=== PATIENT | male | born 1975 | race Caucasian/White ===

== ENCOUNTER → 2016-09-12 | Outpatient (CLI) | payer OTHER ==
[~2016-09-12] MED LIST: ABL/15 PO; ARIP1TAB16 PO; ATV/1 PO; ATV1 PO; BUPR-83 PO; CETI10TA84 PO; DIVA500T3 PO; DPKSR/500 PO; DPKSR250 PO; ESCI10TA17 PO; FLNIN/ NAE; FLUP10TA PO; FLUT1SPR12 NAE; GDN/80 PO; KLN5 PO; LITH1TAB PO; LITH300T2 PO; LXP10 PO; MULT-506 PO; MULTTAB58 PO; NUTR-218; OMEG10007 PO; PALI3TAB PO; PROP10TA7 PO; SERT50TA PO; THRIVE PATCH TOP; TRAZ100T29 PO; VALA500T60 PO; VLT500 PO; ZIPR1CAP4 PO; [UNRECOGNIZED DRUG - CODE] IM
--- NOTE | 2016-09-12 11:33 | DIAGNOSTIC IMAGING REPORT ---
CHEST 2 VIEWS ROUTINE HISTORY: J20.8 Acute viral bronchitis COMPARISON: None. FINDINGS: The lungs are clear. Cardiac silhouette is normal in size. No pleural effusions. No pneumothorax. IMPRESSION: No acute process. Electronically signed by: Greg Camacho M.D. 09/12/2016 11:32 AM Dictated Date/Time: 09/12/2016 11:28 AM
== END | disposition home or self-care (01) ==
LOC: C.RADBC 11:13
PROVIDERS: ATTEND Family Medicine
DX: J20.8 Acute bronchitis due to other specified organisms (principal)

== ENCOUNTER → 2016-09-28 | Outpatient (CLI) | payer OTHER ==
--- NOTE | 2016-09-29 05:24 | SPLIT NIGHT TECHNICIAN REPORT ---
[facility] Split Night Polysomnogram - Employment Coordinator Report Study date: 09/28/2016 Referring Physician: DR. LOVE Name: MORALES DUQUE Employment Coordinator: BRADLEY Allen. Date of : 1975 Height: 40 years, Height 5' 11" Sex: Male Weight: 263 lbs Age: 40 Neck Circum: 18 inches BMI: Medications: 36.68 ABILIFY 5 MG, BUPROPION HCL 100 MG, DIVALPROEX SODIUM 500 MG, FLUOXETINE HCL 10 MG, FLUTICASONE PROPIONATE 50 MCG/ACT, INVEGA SUSTENNA 156 MG/ML, PROPRANOLOL HCL 10 MG Patient History PATIENT HAD A SLEEP STUDY DONE IN JULY OF 2014. HE WAS POSITIVE FOR HERNAN AND WAS TREATED WITH CPAP. HOWEVER, CPAP WAS TAKEN AWAY FROM HIM SINCE HE DID NOT MEET THE REQUIRED USAGE. HE IS HERE TODAY FOR AN EVALUATION OF HERNAN. ESS = 13 RM 8 Parameters Monitored NPSG: E1-M2, E2-M1, Fp1-M2, Fp2-M1, F3-M2, F4-M2, F4-M1, C3-M2, C4-M2, C4-M1, O1-M2, O2-M2, O2-M1, T3-M2, T4-M1, P3-M2, P4-M1, CHIN1, CHIN2, HR, EKG, Legs, PFLOW, SNOR, FLOW, CFLOW, Tidal Volume, THOR, ABDO, SpO2, PLTH, CPRESS, ETCO2 Wave, ETCO2, pH SLEEP SUMMARY DATA DIAGNOSTIC TREATMENT Lights Out: 10:05:33 PM 1:24:03 AM Lights On: 1:15:33 AM 5:07:33 AM Total Recording Time (TRT): 190.5 min. 224.0 min. Total Sleep Time (TST): 132.5 min. 210.0 min. NREM Time: 132.5 min. 144.0 min. REM Time: 0.0 min. 66.0 min. Sleep Period Time (SPT): 169.5 min. 215.5 min. Sleep Efficiency (SE): 70 % 94 % Sleep Latency: 20.5 min. 4.0 min. Arousal Index: 28.5 6.9 PAP Treatment Levels: 4, 5, 6, 7, 8, 9, 10, 11 * Optimal Pressure(s) SLEEP STAGING DATA DIAGNOSTIC TREATMENT Duration (min) TST % Duration (min) TST % Stage Wake: 57.5 min. -- 14.0 min. -- WASO: 37.0 min. -- 5.5 min. -- NREM: 132.5 min. 100 % 144.0 min. 69 % Stage N1: 15.0 min. 11 % 10.0 min. 5 % Stage N2: 117.5 min. 89 % 62.0 min. 30 % Stage N3: 0.0 min. 0 % 72.0 min. 34 % REM: 0.0 min. 0 % 66.0 min. 31 % POSITIONAL DATA Event Count Index Event Count Index Supine: 184 83.3 46 13.1 Supine NREM: 184 83.3 38 15.8 Supine REM: N/A N/A 8 7 Non-Supine: N/A N/A N/A N/A Non-Supine NREM: N/A N/A N/A N/A Non-Supine REM: N/A N/A N/A N/A AROUSAL SUMMARY DATA: Event Count Index Event Count Index Apnea Arousals: 36 66.1 7 4.6 Hypopnea Arousals: 8 3.6 8 2.3 Snore Arousals: 4 1.8 4 1.1 PLM Arousals: 0 0.0 0 0.0 Non-Specific Arousals: 13 5.9 7 2.0 Total Arousals: 63 28.5 24 6.9 MYOCLONUS (PLM) Event Count Index Event Count Index PLM: 0 0.0 9 2.6 PLM AROUSAL: 0 0.0 0 0.0 PLM W/O AROUSAL 0 0.0 9 2.6 PLM W/RESP EVENT 0 0.0 0 0.0 MYOCLONUS (PLM) Event Count Index Event Count Index LM: 4 28.1 35 10.0 LM AROUSAL: 4 1.8 1 0.3 LM W/O AROUSAL LM W/RESP EVENT LM NON SPECIFIC 30 13.6 38 10.9 HEART RATE DATA DIAGNOSTIC TREATMENT Sleep (bpm): 81 79 REM (bpm): N/A 93 NREM (bpm): 87 92 Tachycardia Count: 0 0 Tachycardia Duration: 0.00 0 Bradycardia Count: 0 0 Bradycardia Duration: 0.00 0 DIAGNOSTIC PORTION TREATMENT PORTION RESPIRATORY DATA Event Count Index Event Count Index AHI: -- 83.3 -- 13.1 RDI: -- 83.3 -- 13 Obstructive Apnea: 131 59.3 14 4.0 Central Apnea: 0 0.0 2 0.6 Mixed Apnea: 15 6.8 0 0.0 Hypopnea: 38 17.2 30 8.6 RERA: 0 0.0 0 0.0 Total Apneas: 146 66.1 16 4.6 RESPIRATORY DATA REM NREM SLEEP REM NREM SLEEP Supine Position: Obstructive Apneas: N/A 131 131 0 14 14 Central Apneas: N/A 0 0 2 0 2 Mixed Apneas: N/A 15 15 0 0 0 Hypopneas: N/A 38 38 6 24 30 RERA N/A 0 0 0 0 0 Total Supine Events: N/A 184 184 8 38 46 Supine AHI: N/A 83.3 83.3 7 15.8 13.1 Supine RDI: N/A 83.3 83.3 7.3 15.8 13.1 REM NREM SLEEP REM NREM SLEEP Non-Supine Position: Obstructive Apneas: N/A N/A N/A N/A N/A N/A Central Apneas: N/A N/A N/A N/A N/A N/A Mixed Apneas: N/A N/A N/A N/A N/A N/A Hypopneas: N/A N/A N/A N/A N/A N/A RERA N/A N/A N/A N/A N/A N/A Total Supine Events: N/A N/A N/A N/A N/A N/A Supine AHI: N/A N/A N/A N/A N/A N/A Supine RDI: N/A N/A N/A N/A N/A N/A OXYGEN DESTAURATION DATA: Event Count Index Event Count Index REM Desaturations: N/A N/A 9 8.2 NREM Desaturations: 207 93.7 41 17.1 SNORE DATA DIAGNOSTIC TREATMENT Snore Time: 15.1 1:28:03 AM Snore TST%: 8 1 Snore Arousal Count: 4 4 Snore Arousal Index: 1.8 1.1 Desaturation Event Summary: Minimum %SpO2 Event Count Mean/Min/Max Duration(sec.) Desaturation Index % Time In Bed > 90 264 22.8 / 4.3 / 60.0 54.4 71.8 86 - 90 16 14.2 / 7.3 / 19.8 15.8 15.0 81 - 85 0 N/A 0.0 6.4 76 - 80 0 N/A 0.0 5.6 71 - 75 0 N/A 0.0 1.3 66 - 70 0 N/A 0.0 0.0 61 - 65 0 N/A 0.0 0.0 56 - 60 0 N/A 0.0 0.0 51 - 55 0 N/A 0.0 0.0 < 50 0 N/A 0.0 0.0 OXYGEN SATURATION DATA DIAGNOSTIC TREATMENT SpO2 Mean Sleep: 87 % 93 % SpO2 Mean REM: N/A % 93 % SpO2 Mean NREM: 87 % 92 % SpO2 Minimum Sleep: 72 % 79 % SpO2 Minimum REM: N/A % 86 % SpO2 Minimum NREM: 72 % 79 % Time Below 90% (TST): 74.3 11.3 Time Below 88% (TST): 57.6 7.1 Total REM NREM Awake <50% 0.0 min. 0.0 min. 0.0 min. 0.0 min. 51 - 60% 0.0 min. 0.0 min. 0.0 min. 0.0 min. 61 - 70% 0.0 min. 0.0 min. 0.0 min. 0.0 min. 71 - 80% 27.8 min. 0.0 min. 27.4 min. 0.4 min. 81 - 90% 86.5 min. 3.5 min. 66.7 min. 16.4 min. 91 - 100% 291.0 min. 61.5 min. 181.9 min. 47.6 min. Average 91 93 90 92 Minimum SpO2 72 86 72 77 Desaturation Event Index 39.3 8.2 53.8 12.7 # Desat. Events below 89% 232 N/A 229 3 Time(%) with Saturation below 89% 18.7 0.7 17.4 0.6 Time(min.) with Saturation below 89% 75.8 2.7 70.5 2.5 Recording Employment Coordinator Comments: Mr. Duque slept in the supine positions. No cardiac arrhythmia noted. Leg movements noted. No bruxism noted. Snoring was noted and scored as a 4 on a scale of 1 through 5. (0=no snoring, 5=snoring loud enough to be heard through a closed door or down the guillen way) At 1:15 am Mr. Duque has met specific Split-Night criteria during the diagnostic portion of this study. CPAP was initiated at +4 CMH2O and up-titrated to an optimal level of +11 CMH2O, which nearly eliminated all respiratory events and snoring. A Resmed Mirage Quattro full face size medium mask was used during titration Mr. Duque awoke to use the restroom 0 times during the night. Mr. Duque stated I slept as well as I do when I am in my own bed. The final report will be interpreted and signed by a sleep physician. The completed physician report will then be placed in the patient medical record. Therapy Event: Therapy (cm H20) 0 4 5 6 7 8 9 10 11 Total Time at Pressure (min.) 190.0 14.0 6.6 4.5 6.5 8.2 9.5 25.6 148.6 TST at Pressure (min.) 132.5 6.5 5.6 4.5 6.5 8.2 9.5 24.6 144.6 # Periods 1 1 1 1 1 1 1 1 1 Sleep Onset (min.) 20.5 4.0 0.0 0.0 0.0 0.0 0.0 0.0 0.0 REM Onset (min.) N/A N/A N/A N/A N/A N/A 3.6 0.0 1.1 Sleep Efficiency % 69 46 84 100 100 100 100 96 97 Wakefulness (%) 30.3 53.6 15.1 0.0 0.0 0.0 0.0 3.9 2.7 Wakefulness (min.) 57.5 7.5 1.0 0.0 0.0 0.0 0.0 1.0 4.0 NREM 1 (%) 7.9 32.1 15.1 11.0 0.0 0.0 0.0 5.4 1.8 NREM 1 (min.) 15.0 4.5 1.0 0.5 0.0 0.0 0.0 1.4 2.6 NREM 2 (%) 61.8 14.3 69.7 89.0 100.0 100.0 38.4 0.0 22.2 NREM 2 (min.) 117.5 2.0 4.6 4.0 6.5 8.2 3.6 0.0 33.0 NREM 3 (%) 0.0 0.0 0.0 0.0 0.0 0.0 0.0 0.0 48.4 NREM 3 (min.) 0.0 0.0 0.0 0.0 0.0 0.0 0.0 0.0 72.0 REM (%) 0.0 0.0 0.0 0.0 0.0 0.0 61.6 90.6 24.9 REM (min.) 0.0 0.0 0.0 0.0 0.0 0.0 5.8 23.2 37.0 # Arousals 63 4 3 4 3 5 1 0 4 Arousal Index 28.5 36.9 32.1 53.0 27.7 36.4 6.3 0.0 1.7 # Snore 374 2 3 8 16 21 1 1 3 Snore Index 169.4 18.5 32.1 106.0 147.8 153.0 6.3 2.4 1.2 AHI 83.3 73.9 96.4 79.5 73.9 43.7 19.0 7.3 1.2 AHI Supine 83.3 73.9 96.4 79.5 73.9 43.7 19.0 7.3 1.2 AHI Non-Supine N/A N/A N/A N/A N/A N/A N/A N/A N/A NREM AHI 83.3 73.9 96.4 79.5 73.9 43.7 0.0 0.0 0.6 REM AHI N/A N/A N/A N/A N/A N/A 30.8 7.8 3.2 RDI 83.3 73.9 96.4 79.5 73.9 43.7 19.0 7.3 1.2 # Obstructive 131 1 4 2 5 2 0 0 0 # Central Ap 0 0 0 0 0 0 1 0 1 # Mixed 15 0 0 0 0 0 0 0 0 # Hypopneas 38 7 5 4 3 4 2 3 2 RERAS 0 0 0 0 0 0 0 0 0 Total Respiratory Events 184 8 9 6 8 6 3 3 3 Time Below SpO2 89.00% (min.) 63.5 0.1 0.6 1.4 2.4 2.5 0.0 2.7 0.0 Mean NREM SpO2 (%) 87 93 93 91 90 91 94 93 93 Mean REM SpO2 (%) N/A N/A N/A N/A N/A N/A 95 93 93 Mean Sleep SpO2 (%) 87 93 93 91 90 91 95 93 93 Min NREM SpO2 (%) 72 88 84 80 79 80 93 92 89 Min REM SpO2 (%) N/A N/A N/A N/A N/A N/A 91 86 90 Position Supine (min.) 132.5 6.5 5.6 4.5 6.5 8.2 9.5 24.6 144.6 Position Non-supine (min.) 0.0 0.0 0.0 0.0 0.0 0.0 0.0 0.0 0.0 LM Index Sleep 28.1 27.7 10.7 13.2 27.7 51.0 63.3 19.5 4.6 LM Index NREM 28.1 27.7 10.7 13.2 27.7 51.0 33.0 0.0 1.7 LM Index REM N/A N/A N/A N/A N/A N/A 82.2 20.7 13.0 Mean Heart Rate (bpm) 81 79 79 78 78 78 81 82 78 Min Heart Rate (bpm) 68 73 73 69 70 67 70 59 65
--- NOTE | 2016-09-30 20:15 | POLYSOMNOGRAPH REPORT ---
SLEEP STUDY REFERRING DOCTOR: Dr. Constantine Zamudio. CLINICAL DATA: The patient is a 40-year-old male. His body mass index is elevated at 36.68. He had a prior sleep study done in 2013 showing severe sleep apnea with an apnea hypopnea index of 107. He was treated with nasal CPAP at 9 cm. He did not wear the CPAP much. The patient has symptoms including snoring, gasping, and excessive daytime somnolence. He completed the [place] sleepiness scale and had a score of 13 out of a possible 24. The patient is having an in-lab study which is a split study. SLEEP ARCHITECTURE: During the diagnostic portion of the study, the sleep period time was 169.5 minutes and the total sleep time was 132.5 minutes. The sleep efficiency was 70%. The sleep latency was 20.5 minutes. Sleep consisted of stage N1 11%, stage N2 89%, stage N3 0%, and stage REM 0%. During the treatment portion of the study, the patient was treated with nasal CPAP. The sleep period time was 215.5 minutes. The total sleep time was 210.0 minutes. Sleep efficiency was 94%. The sleep latency was 4 minutes. Sleep consisted of stage N1 5%, stage N2 30%, stage N3 34%, and stage REM 31%. AROUSAL DATA: During the diagnostic portion of the study, the patient had 63 arousals including 36 apnea arousals, 8 hypopnea arousals, 4 snoring arousals, and 13 nonspecific arousals. The arousal index was 28.5. During the therapeutic portion of the study, the patient had 24 arousals including 7 apnea arousals, 8 hypopnea arousals, 4 snoring arousals, and 7 nonspecific arousals. The arousal index was 6.9. PERIODIC LIMB MOVEMENTS DATA: during the diagnostic portion of the study, the patient had 0 PLMs. During the therapeutic portion of the study, he had 9 periodic limb movements for an index of 2.6. The PLM arousal index was 0. ELECTROCARDIOGRAM: The cardiac rates ranged from 79-93 beats per minute. The rhythm was normal sinus. No arrhythmias were seen. RESPIRATORY DATA: During the diagnostic portion of the study, the patient had a total of 131 obstructive apneas, 15 mixed apneas, and 38 hypopneas. Hypopneas were scored by the 4% desaturation rule. The apnea hypopnea index was severely elevated at 83.3, representing severe obstructive sleep apnea. During the therapeutic portion of the study, the patient was treated with nasal CPAP which was titrated from 4 cm up to a final pressure of 11 cm. During the therapeutic portion, he had 14 obstructive apneas, 2 central apneas, and 30 hypopneas. The apnea hypopnea index was 13.1. At the final pressure of 11 cm, the patient had a total of 144.6 minutes of sleep. The apnea hypopnea index was only 1.2 events per hour. OXIMETRY DATA: The mean oxygen saturation during the diagnostic portion of the study was 87%. The minimum oxygen saturation was 72%. He had 57.6 minutes with saturations less than 88%. During the therapeutic portion of the study, the mean saturation was 93%. The minimum saturation was 79%. There was only 7.1 minutes with saturation less than 88%. At the final pressure, saturations were above 90%. BAND TOP MAKER'S COMMENTS AND TREATMENT SUMMARY: Mr. Zelaya slept in the supine position. No cardiac arrhythmias noted. No bruxism noted. Snoring was noted and scored as a 4 on a scale of 1 through 5. At 1:15 a.m., Mr. Zelaya has met specific split night criteria during the diagnostic portion of the study. CPAP was initiated at 4 cm and up titrated to an optimal level of 11 cm which nearly eliminated all respiratory events and snoring. A ResMed Mirage Quattro full face mask size medium was utilized. IMPRESSION: 1. Obstructive sleep apnea - severe - resolved with nasal CPAP at 11 cm. COMMENTS: The patient has severe sleep apnea. Because of this, a split study was done. There was significant improvement in his sleep during the CPAP titration. The apnea was eliminated. His sleep became much more consolidated. There was a marked increase in deeper sleep including stage N3 and stage REM. There was REM rebound. Oxygenation normalized. RECOMMENDATIONS: 1. It is advised that the patient be treated with nasal CPAP at 11 cm. 2. It is advised that he be ordered a ResMed Mirage Quattro full facemask size medium. 3. A weight-reduction program is advised in light of the patient's elevation of body mass index of 36.68. 4. If possible, the patient should avoid sleeping in the supine position. 5. The patient should be reevaluated between day #31 and day #90 of receiving his CPAP. MTDD
== END | disposition home or self-care (01) ==
LOC: C.NEUR 21:00
PROVIDERS: ATTEND Internal Medicine Pulmonary Disease
DX: G47.33 Obstructive sleep apnea (adult) (pediatric) (principal)

== ENCOUNTER 2016-10-11 21:32 | Emergency (ER) | payer OTHER ==
[~2016-10-11] VITALS: Ht 180.3 cm; Wt 119.3 kg
[~2016-10-11 21:32] MED LIST changes: -ABL/15 PO; -ARIP1TAB16 PO; -ATV/1 PO; -ATV1 PO; -BUPR-83 PO; -CETI10TA84 PO; -DIVA500T3 PO; -DPKSR/500 PO; -DPKSR250 PO; -ESCI10TA17 PO; -FLNIN/ NAE; -FLUT1SPR12 NAE; -GDN/80 PO; -KLN5 PO; -LXP10 PO; -MULT-506 PO; -MULTTAB58 PO; -NUTR-218; -OMEG10007 PO; -PALI3TAB PO; -PROP10TA7 PO; -SERT50TA PO; -TRAZ100T29 PO; -VALA500T60 PO; -VLT500 PO; -ZIPR1CAP4 PO; -[UNRECOGNIZED DRUG - CODE] IM
[2016-10-11 21:39] VITALS: TEMP 37.2; Ht 180.3 cm; Wt 119.3 kg
[2016-10-11] MEDS ORDERED: SODIUM CHLORIDE 0.9% 1000ML 1,000 ML IV STA ×2 (21:52)
[2016-10-11] MEDS ORDERED: LORAZEPAM 2 MG/ML 1 ML VIAL IV STA (21:52)
[2016-10-11] MEDS ORDERED: ARIP1TAB16 PO (22:16)
[2016-10-11] MEDS ORDERED: PROP10TA7 PO (22:16)
[2016-10-11] MEDS ORDERED: [UNRECOGNIZED DRUG - CODE] IM (22:16)
[2016-10-11] MEDS ORDERED: VLT500 PO (22:16)
[2016-10-11] MEDS ORDERED: LXP10 PO (22:16)
[2016-10-11] MEDS ORDERED: DPKSR/500 PO (22:16)
[2016-10-11] MEDS ORDERED: FLNIN/ NAE (22:16)
[2016-10-11 22:18] LABS: URINE APPEARANCE CLEAR (CLEAR); URINE BILIRUBIN NEG (NEG); URINE COLOR YELLOW; URINE NITRITE NEG (NEG); URINE PH 6.5 (4.5-7.5); URINE SPECIFIC GRAVITY 1.018 (1.000-1.030); UROBILINOGEN NEG (NEG); ZZUR CULT IF INDIC CLEAN CATCH NO
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
[2016-10-11 22:22] LABS: MANUAL MICROSCOPIC REQUIRED? NO; REVIEW REQ? NO
--- NOTE | 2016-10-11 22:29 | DIAGNOSTIC IMAGING REPORT ---
CHEST ONE VIEW PORTABLE HISTORY: EVALUATE ALTERED MENTAL STATUS/WEAKNESS COMPARISON: Chest 09/12/2016. FINDINGS: The lungs are clear. Cardiac silhouette is normal in size. No pleural effusions. No pneumothorax. IMPRESSION: No acute process. Electronically signed by: Greg Camacho M.D. 10/11/2016 10:28 PM Dictated Date/Time: 10/11/2016 10:27 PM
[2016-10-11 22:33] LABS: BASO % 0.1 %; BASO ABS # 0.01 K/uL (0-0.2); COMPLETE YES; EOS % 0.2 %; HEMATOCRIT 39.6 % (42-52); IG% 0.2 %; LYMPH % 31.1 %; LYMPH ABS # 2.61 K/uL (1.2-3.4); MEAN CELL VOLUME 93.6 fL (80-100); MEAN CORPUSCULAR HGB CONC 36.4 g/dl (32-36); MEAN PLATELET VOLUME 9.7 fL (7.4-10.4); MONO % 11.4 %; PLATELET COUNT 201 K/uL (130-400); RED BLOOD COUNT 4.23 M/uL (4.7-6.1); WHITE BLOOD COUNT 8.39 K/uL (4.8-10.8)
[2016-10-11 22:49] LABS: BUN/CREATININE RATIO 16.9 (10-20); CALCIUM 8.8 mg/dl (8.5-10.1); CREATININE 1.1 mg/dl (0.60-1.40); MAGNESIUM 1.9 mg/dl (1.8-2.4); POTASSIUM 3.3 mmol/L (3.5-5.1)
[2016-10-11 22:49] LABS: BENZODIAZEPINE, URINE NEG (NEG); COCAINE,URINE NEG (NEG); PHENCYCLIDINE, URINE NEG (NEG)
[2016-10-11 22:59] LABS: ALB/GLOB RATIO 0.9 (0.9-2); THYROID STIMULATING HORMONE 2.46 uIu/ml (0.300-4.500)
[2016-10-11] MEDS ORDERED: PROPRANOLOL HCL 10 MG TAB PO ONE (23:30)
[2016-10-12 01:16] VITALS: BP 108/71; PULSE 102; O2SAT 96
--- NOTE | 2016-10-12 05:00 | EMERGENCY ROOM VISIT NOTE ---
ED Visit Note First contact with patient: 01:10 This patient was signed out to me at shift change by Dr. Tobias. He apparently had tachycardia this has come down to about 100 without any specific treatment. The patient had been previously medically cleared and Dr. Tobias was having psychiatry see him. The patient declines now that he wants to see psychiatry says. He feels good and he denies that he has any suicidal or homicidal ideations. When I walk in the room, he is resting comfortably denies that he wants to hurt himself or others. I had our ethanol operations manager Shelby, who does know him evaluate him. She also feels that he is safe to go home and he does see his counselor twice a week and he is follow-up return to ER if: Worsening of symptoms, not tolerating fluids, fever or chills, any problems concerns. He is happy with the plan and discharged to home and declined psychiatric evaluation joanne
[2017-04-17] MEDS ORDERED: PROP10TA7 PO ×2 (01:41→18:57)
[2017-04-17] MEDS ORDERED: TRAZ100T29 PO (01:43)
[2017-04-17] MEDS ORDERED: GDN/80 PO (01:43)
[2017-04-17] MEDS ORDERED: VALA500T60 PO (01:47)
[2017-04-17] MEDS ORDERED: SERT50TA PO (01:47)
[2017-04-17] MEDS ORDERED: MULTTAB58 PO (01:47)
[2017-04-17] MEDS ORDERED: OMEG10007 PO (01:49)
== END 2016-10-12 01:18 | disposition home or self-care (01) ==
LOC: C.EDB 21:33 → C.EDC 10-12 01:18
DX: F30.9 Manic episode, unspecified (principal); F41.9 Anxiety disorder, unspecified; R00.0 Tachycardia, unspecified; Z91.14 Patient's other noncompliance with medication regimen; F31.9 Bipolar disorder, unspecified; F25.9 Schizoaffective disorder, unspecified; F17.200 Nicotine dependence, unspecified, uncomplicated

== ENCOUNTER 2016-10-21 19:56 | Emergency (ER) | payer OTHER ==
[~2016-10-21] VITALS: Ht 180.3 cm; Wt 118.0 kg
[~2016-10-21 19:56] MED LIST changes: +ARIP1TAB16 PO; +DPKSR/500 PO; +FLNIN/ NAE; -FLUP10TA PO; -LITH1TAB PO; -LITH300T2 PO; +LXP10 PO; +PROP10TA7 PO; -THRIVE PATCH TOP; +VLT500 PO; +[UNRECOGNIZED DRUG - CODE] IM
[2016-10-21 20:15] VITALS: TEMP 36.8; Ht 180.3 cm; Wt 118.0 kg
[2016-10-21] MEDS ORDERED: LORAZEPAM 1 MG TAB SL STA (20:34)
[2016-10-21] MEDS ORDERED: PROPRANOLOL HCL 10 MG TAB PO ONE (20:45)
[2016-10-21 20:57] LABS: BASO % 0.3 %; BASO ABS # 0.02 K/uL (0-0.2); COMPLETE YES; EOS % 0.5 %; HEMATOCRIT 41.1 % (42-52); IG% 0.3 %; LYMPH % 35.2 %; MEAN CELL VOLUME 94.3 fL (80-100); MEAN CORPUSCULAR HEMOGLOBIN 33.9 pg (25-34); MEAN PLATELET VOLUME 9.6 fL (7.4-10.4); MONO % 10.2 %; NEUT % 53.5 %; PLATELET COUNT 187 K/uL (130-400); RED BLOOD COUNT 4.36 M/uL (4.7-6.1); WHITE BLOOD COUNT 7.67 K/uL (4.8-10.8)
--- NOTE | 2016-10-21 20:58 | EMERGENCY ROOM VISIT NOTE ---
History Report prepared by Tolu: Sharon Srhestha Under the Supervision of: Dr. Jay Jay Tobias M.D. First contact with patient: 20:29 Chief Complaint: MENTAL HEALTH EVALUATION Stated Complaint: MENTAL HEALTH EVAL History of Present Illness The patient is a 40 year old male who presents to the Emergency Room via EMS for a mental health evaluation following statements made today. Per nursing staff, the patient became more angry, agitated, and paranoid while at a convenience store. EMS was then called. "I am completely in touch with reality. I feel revved up." The patient states that he has not taken his medications as prescribed for about 10-14 days. He states that he does not want Depakote to be ordered. "I could take an Ativan or a beer." The patient states that he has Ativan at home which he can take. When informed that his mother is in the waiting room, the patient states "she is the root and source of most of my stress." The patient states that he will talk to her if she will come back to his hospital room. He denies suicidal ideation, homicidal ideation, pain. Source of History: patient Onset: today Position: other (global) Quality: other (mental health evaluation) Timing: worsening Note: He denies suicidal ideation, homicidal ideation, pain. Review of Systems See HPI for pertinent positives & negatives. A total of 10 systems reviewed and were otherwise negative. Past Medical & Surgical Medical Problems: (1) Bipolar disorder Surgical Problems: (1) Hx of adenoidectomy (2) Hx of tonsillectomy Family History No significant family history Social History Smoking Status: Current Every Day Smoker Alcohol Use: occasionally Drug Use: other Marital Status: single Housing Status: lives with family, other Occupation Status: unemployed Current/Historical Medications Scheduled Lorazepam (Lorazepam), 1 MG PO BID Paliperidone Palmitate (Invega Trinza), 546 MG IM Q3 MONTHS Propranolol (Inderal), 10 MG PO BID Valacyclovir HCl (Valacyclovir HCl), 500 MG PO DAILY Scheduled PRN Fluticasone Propionate (Fluticasone Propionate), 2 SPRAYS EDU DAILY PRN for Nasal Congestion Allergies Coded Allergies: Iron (Verified Allergy, Unknown, ., 10/21/16) Quetiapine (Unverified Allergy, Unknown, restless leg, 10/21/16) Physical Exam Vital Signs Date Time Temp Pulse Resp B/P Pulse Ox O2 Delivery O2 Flow Rate FiO2 10/21/16 22:25 106 20 150/94 95 10/21/16 20:15 36.8 125 20 117/99 94 Room Air Physical Exam GENERAL: Patient is in no acute distress. HEENT: No acute trauma, normocephalic atraumatic, mucous membranes moist, no nasal congestion, no scleral icterus. NECK: No stridor, no adenopathy, no meningismus, trachea is midline. LUNGS: Clear to auscultation bilaterally, no wheeze, no rhonchi, breath sounds equal. HEART: Mildly tachycardic with a regular rhythm, no murmurs. ABDOMEN: Soft, nontender, bowel sounds positive, no hernias, no peritonitis. EXTREMITIES: No cyanosis or edema, full range of motion of all the joints without pain or difficulty, no signs for acute trauma. NEUROLOGIC: Oriented x 3, no acute motor or sensory deficits, no focal weakness. SKIN: No rash, no jaundice, no diaphoresis. PSYCHOLOGIC: Admits to being angry, denies social or homicidal ideation. Admits to stress that he feels is secondary to his mother. Presently cooperative. Admits to not taking his medications in at least 10 days. Medical Decision & Procedures Laboratory Results 10/21/16 20:44 Red Blood Count 4.36, Mean Corpuscular Volume 94.3, Mean Corpuscular Hemoglobin 33.9, Mean Corpuscular Hemoglobin Concent 36.0, Mean Platelet Volume 9.6, Neutrophils (%) (Auto) 53.5, Lymphocytes (%) (Auto) 35.2, Monocytes (%) (Auto) 10.2, Eosinophils (%) (Auto) 0.5, Basophils (%) (Auto) 0.3, Neutrophils # (Auto ) 4.11, Lymphocytes # (Auto) 2.70, Monocytes # (Auto) 0.78, Eosinophils # (Auto ) 0.04, Basophils # (Auto) 0.02 10/21/16 20:44 Test 10/21/16 20:30 10/21/16 20:44 Urine Color YELLOW Urine Appearance CLEAR (CLEAR) Urine pH 6.5 (4.5-7.5) Urine Specific [place] 1.008 (1.000-1.030) Urine Protein NEG (NEG) Urine Glucose (UA) NEG (NEG) Urine Ketones NEG (NEG) Urine Occult Blood NEG (NEG) Urine Nitrite NEG (NEG) Urine Bilirubin NEG (NEG) Urine Urobilinogen NEG (NEG) Urine Leukocyte Esterase NEG (NEG) Urine Opiates Screen NEG (NEG) Urine Methadone, Qualitative NEG (NEG) Urine Barbiturates NEG (NEG) Urine Phencyclidine (PCP) Level NEG (NEG) Ur Amphetamine/Methamphetamine NEG (NEG) MDMA (Ecstasy) Screen NEG (NEG) Urine Benzodiazepines Screen NEG (NEG) Urine Cocaine Metabolite NEG (NEG) Urine Marijuana (THC) NEG (NEG) White Blood Count 7.67 K/uL (4.8-10.8) Red Blood Count 4.36 M/uL (4.7-6.1) Hemoglobin 14.8 g/dL (14.0-18.0) Hematocrit 41.1 % (42-52) Mean Corpuscular Volume 94.3 fL (80-100) Mean Corpuscular Hemoglobin 33.9 pg (25-34) Mean Corpuscular Hemoglobin Concent 36.0 g/dl (32-36) Platelet Count 187 K/uL (130-400) Mean Platelet Volume 9.6 fL (7.4-10.4) Neutrophils (%) (Auto) 53.5 % Lymphocytes (%) (Auto) 35.2 % Monocytes (%) (Auto) 10.2 % Eosinophils (%) (Auto) 0.5 % Basophils (%) (Auto) 0.3 % Neutrophils # (Auto) 4.11 K/uL (1.4-6.5) Lymphocytes # (Auto) 2.70 K/uL (1.2-3.4) Monocytes # (Auto) 0.78 K/uL (0.11-0.59) Eosinophils # (Auto) 0.04 K/uL (0-0.5) Basophils # (Auto) 0.02 K/uL (0-0.2) RDW Standard Deviation 45.2 fL (36.4-46.3) RDW Coefficient of Variation 13.1 % (11.5-14.5) Immature Granulocyte % (Auto) 0.3 % Immature Granulocyte # (Auto) 0.02 K/uL (0.00-0.02) Anion Gap 8.0 mmol/L (3-11) Estimated GFR () 88.4 Estimated GFR (Non- 76.3 BUN/Creatinine Ratio 9.1 (10-20) Calcium Level 8.8 mg/dl (8.5-10.1) Total Bilirubin 0.8 mg/dl (0.2-1) Aspartate Amino Transf (AST/SGOT) 27 U/L (15-37) Alanine Aminotransferase (ALT/SGPT) 57 U/L (12-78) Alkaline Phosphatase 47 U/L (45-117) Total Protein 7.5 gm/dl (6.4-8.2) Albumin 3.8 gm/dl (3.4-5.0) Globulin 3.7 gm/dl (2.5-4.0) Albumin/Globulin Ratio 1.0 (0.9-2) Thyroid Stimulating Hormone (TSH) 1.480 uIu/ml (0.300-4.500) Salicylates Level 2.9 mg/dl (2.8-20) Acetaminophen Level < 2 ug/ml (10-30) Valproic Acid (Depakene) Level < 3 mcg/ml (50-100) Ethyl Alcohol mg/dL < 3.0 mg/dl (0-3) Laboratory results reviewed by me. Medications Administered Medications (Trade) Dose Ordered Sig/Ingrid Route Start Time Stop Time Status Last Admin Dose Admin Propranolol HCl (Inderal Tab) 10 mg NOW ONCE PO 10/21/16 20:45 10/21/16 20:46 DC 10/21/16 21:51 10 MG Lorazepam (Ativan Tab) 2 mg NOW STAT SL 10/21/16 20:34 10/21/16 20:38 DC 10/21/16 21:51 2 MG ED Course 2031: The patient was evaluated in room A6. A complete history and physical exam was performed. 2033: Ativan Tab 2 mg SL 2044: Inderal Tab 10 mg PO 2049: I had a lengthy conversation with the patient's mother. She states that the patient has been to his therapist twice this week, and that [facility] has been involved this week. No one thought he met criteria for inpatient care. The psychiatric patient case coordinator will meet with the patient's mother as well. The patient's mother relates that EMS was called as the patient got into an argument with the minute clerk over where the nicotine gum was placed. He was concerned that the nicotine gum was placed too low and that children could get at the gum. 2149: The psychiatric patient case coordinator Santa spoke to the patient and his mother at length. There will be no 302 petition. The patient's mother feels that the patient is safe for discharge home. 2200: Reevaluated the patient; he is calm. Discussed results and discharge instructions with the patient and his mother: They verbalized understanding and agreement. The patient is ready for discharge. Medical Decision The patient is a 40 year old male who presents to the ED for a mental health evaluation. Differential diagnoses considered include: medication noncompliance , paranoia, warner, suicidal or homicidal ideation, electrolyte imbalance. There is no leukocytosis or concerning anemia. No significant electrolyte abnormality, kidney failure, hepatitis. The patient appears to be in a euthyroid state. Urine tox is negative. Alcohol, aspirin and Tylenol levels are negative. His valproic acid level is almost undetectable consistent with him not using his medications. Urinalysis does not show infection. The patient did consent to take his Inderal and Ativan, both of these meds were given orally. The patient is much more relaxed now, his heart rate has decreased. The patient was seen by the psychiatric patient case coordinator, I did speak at length with the patient's mother. At this point, the patient does not meet criteria for involuntary commitment. He is not homicidal or suicidal. His mother does not believe he is a danger to himself or others. He is being discharged in the care of his mother. I have encouraged him to take his medications as prescribed and to keep following with his therapist. If he feels worse or suicidal, he can return for reassessment. Impression Primary Impression: Agitation Scribe Attestation The scribe's documentation has been prepared under my direction and personally reviewed by me in its entirety. I confirm that the note above accurately reflects all work, treatment, procedures, and medical decision making performed by me. Departure Information Dispostion Home / Self-Care Referrals Constantine Zamudio D.O.Int.Med. (PCP) Forms HOME CARE DOCUMENTATION FORM, IMPORTANT VISIT INFORMATION Patient Instructions My [facility] Additional Instructions return if feeling suicidal or if feeling worse I recommend taking your medications as prescribed as it seems to keep you calmer lab testing today was all ok
[2016-10-21 20:59] LABS: URINE APPEARANCE CLEAR (CLEAR); URINE BILIRUBIN NEG (NEG); URINE COLOR YELLOW; URINE NITRITE NEG (NEG); URINE PH 6.5 (4.5-7.5); URINE SPECIFIC GRAVITY 1.008 (1.000-1.030); UROBILINOGEN NEG (NEG); ZZUR CULT IF INDIC CLEAN CATCH NO
[2016-10-21 21:14] LABS: ALT/SGPT 57 U/L (12-78); BLOOD UREA NITROGEN 11 mg/dl (7-18); BUN/CREATININE RATIO 9.1 (10-20); CALCIUM 8.8 mg/dl (8.5-10.1); CARBON DIOXIDE 27 mmol/L (21-32); CHLORIDE 104 mmol/L (98-107); GLUCOSE 87 mg/dl (70-99); POTASSIUM 3.7 mmol/L (3.5-5.1); SODIUM 139 mmol/L (136-145)
[2016-10-21 21:15] LABS: MANUAL MICROSCOPIC REQUIRED? NO; REVIEW REQ? NO
[2016-10-21 21:18] LABS: BENZODIAZEPINE, URINE NEG (NEG); COCAINE,URINE NEG (NEG); PHENCYCLIDINE, URINE NEG (NEG)
[2016-10-21 21:24] LABS: ACETAMINOPHEN < 2 ug/ml (10-30); ALKALINE PHOSPHATASE 47 U/L (45-117); AST/SGOT 27 U/L (15-37)
[2016-10-21 22:25] VITALS: BP 150/94; PULSE 106; O2SAT 95
[2016-10-21] MEDS ORDERED: ATV1 PO (22:27)
[2016-10-30 21:37] LABS: SYNTHETIC CANNABINOIDS QL URIN NEGATIVE (Negative)
[2017-04-17] MEDS ORDERED: PROP10TA7 PO ×2 (01:41→18:57)
[2017-04-17] MEDS ORDERED: TRAZ100T29 PO (01:43)
[2017-04-17] MEDS ORDERED: GDN/80 PO (01:43)
[2017-04-17] MEDS ORDERED: SERT50TA PO (01:47)
[2017-04-17] MEDS ORDERED: MULTTAB58 PO (01:47)
[2017-04-17] MEDS ORDERED: VALA500T60 PO (01:47)
[2017-04-17] MEDS ORDERED: OMEG10007 PO (01:49)
== END 2016-10-21 22:25 | disposition home or self-care (01) ==
LOC: EDBD 19:56 → C.EDA 19:58
DX: R45.1 Restlessness and agitation (principal); F31.9 Bipolar disorder, unspecified; F17.200 Nicotine dependence, unspecified, uncomplicated; Z98.890 Other specified postprocedural states; Z79.899 Other long term (current) drug therapy

== ENCOUNTER → 2016-10-25 | Outpatient (CLI) | payer OTHER ==
[~2016-10-25] MED LIST changes: +ABL/15 PO; -ARIP1TAB16 PO; +ATV/1 PO; +ATV1 PO; +BUPR-83 PO; +CETI10TA84 PO; +DIVA500T3 PO; -DPKSR/500 PO; +DPKSR250 PO; +ESCI10TA17 PO; +FLUT1SPR12 NAE; +GDN/80 PO; +KLN5 PO; -LXP10 PO; +MULT-506 PO; +MULTTAB58 PO; +NUTR-218; +OMEG10007 PO; +PALI3TAB PO; +SERT50TA PO; +TRAZ100T29 PO; +VALA500T60 PO; +ZIPR1CAP4 PO
--- NOTE | 2016-10-25 11:11 | DIAGNOSTIC IMAGING REPORT ---
THORACOLUMBAR SPINE 2 VIEWS CLINICAL HISTORY: Mid to lower back pain. COMPARISON STUDY: None. FINDINGS: No fracture or subluxation within the lower thoracic spine or lumbar spine. Disc spaces are preserved. Paraspinal soft tissues are unremarkable. IMPRESSION: No significant abnormality within the lower thoracic or lumbar spine by conventional radiographic technique. Electronically signed by: Greg Camacho M.D. 10/25/2016 11:10 AM Dictated Date/Time: 10/25/2016 11:08 AM
== END | disposition home or self-care (01) ==
LOC: C.RADBC 10:47
PROVIDERS: ATTEND Family Medicine
DX: M54.9 Dorsalgia, unspecified (principal)

== ENCOUNTER 2016-10-27 11:41 | Inpatient (IN) | payer OTHER ==
[~2016-10-27] VITALS: Ht 180.3 cm; Wt 118.2 kg
[~2016-10-27 11:41] MED LIST changes: -ABL/15 PO; -ATV/1 PO; -BUPR-83 PO; -CETI10TA84 PO; -DIVA500T3 PO; -DPKSR250 PO; -ESCI10TA17 PO; -FLUT1SPR12 NAE; -GDN/80 PO; -KLN5 PO; -MULT-506 PO; -MULTTAB58 PO; -NUTR-218; -OMEG10007 PO; -PALI3TAB PO; -SERT50TA PO; -TRAZ100T29 PO; -VALA500T60 PO; -ZIPR1CAP4 PO
[2016-10-27 12:59] LABS: BASO % 0.3 %; BASO ABS # 0.02 K/uL (0-0.2); COMPLETE YES; EOS % 1.1 %; HEMATOCRIT 40.8 % (42-52); MEAN CORPUSCULAR HEMOGLOBIN 34.6 pg (25-34); MEAN CORPUSCULAR HGB CONC 36.8 g/dl (32-36); MEAN PLATELET VOLUME 9.5 fL (7.4-10.4); MONO % 5.8 %; NEUT % 52.8 %; PLATELET COUNT 178 K/uL (130-400); RED BLOOD COUNT 4.34 M/uL (4.7-6.1); WHITE BLOOD COUNT 6.25 K/uL (4.8-10.8)
[2016-10-27 13:17] LABS: BUN/CREATININE RATIO 11.9 (10-20); CALCIUM 9.2 mg/dl (8.5-10.1); CREATININE 0.99 mg/dl (0.60-1.40); POTASSIUM 4.1 mmol/L (3.5-5.1)
[2016-10-27 13:28] LABS: THYROID STIMULATING HORMONE 1.19 uIu/ml (0.300-4.500)
[2016-10-27 13:29] LABS: ACETAMINOPHEN < 2 ug/ml (10-30)
--- NOTE | 2016-10-27 14:12 | EMERGENCY ROOM VISIT NOTE ---
History Report prepared by Tolu: Bronwyn Gamez Under the Supervision of: Dr. Bijan Flores M.D. First contact with patient: 12:13 Chief Complaint: MENTAL HEALTH EVALUATION Stated Complaint: MANIC History of Present Illness The patient is a 40 year old male who presents to the Emergency Room with complaints of persistent mental health issues starting [employer]. The ed case manager reports that the patient has been very manic lately. He has been spending extravagantly, driving fast, and exhibiting self destructive behavior. He also has not been sleeping much. His mother is petitioning for a 302. The patient reports that he does not understand why his mother is doing this. He has a history of bipolar disorder. He is on medications and states that he has been taking them regularly. He denies being in any pain. He denies any thoughts of hurting himself or others. He denies overdosing. He denies any hallucinations. He denies using any alcohol or street drugs. Source of History: patient, other (ed case manager) Onset: [employer]ERSON Position: other (global) Quality: other (mental health issues) Timing: other (persistent) Note: Pt denies any pain, hallucinations, suicidal ideation, homicidal ideation. Review of Systems See HPI for pertinent positives & negatives. A total of 10 systems reviewed and were otherwise negative. Past Medical & Surgical Medical Problems: (1) Bipolar disorder Surgical Problems: (1) Hx of adenoidectomy (2) Hx of tonsillectomy Old medical records were reviewed. Nurse's notes were reviewed and I agree with. Family History No significant family history Social History Smoking Status: Current Some Day Smoker Alcohol Use: occasionally Drug Use: other Marital Status: single Housing Status: lives with family Occupation Status: employed Current/Historical Medications Scheduled Lorazepam (Lorazepam), 1 MG PO BID Paliperidone Palmitate (Invega Trinza), 546 MG IM Q3 MONTHS Propranolol (Inderal), 10 MG PO BID Valacyclovir HCl (Valacyclovir HCl), 500 MG PO DAILY Scheduled PRN Fluticasone Propionate (Fluticasone Propionate), 2 SPRAYS EDU DAILY PRN for Nasal Congestion Miscellaneous Medications Nutritional Supplements (Juice Plus Fibre) Allergies Coded Allergies: Iron (Verified Allergy, Unknown, ., 10/27/16) Quetiapine (Unverified Allergy, Unknown, restless leg, 10/27/16) Physical Exam Vital Signs Date Time Temp Pulse Resp B/P Pulse Ox O2 Delivery O2 Flow Rate FiO2 10/27/16 14:16 99 18 145/90 98 Room Air 10/27/16 12:09 36.8 101 18 144/92 97 Room Air Physical Exam General: Non ill-appearing middle age male. Well developed well nourished in no acute distress, breathing comfortably on room air. Normal speech. Answering questions appropriately. A&Ox3. HEENT: Normal cephalic atraumatic. Pupils are equal round and reactive to light. Sclerae anicteric. Extraocular movements are intact. Oropharynx is pink with moist mucous membranes. No swelling of the mouth lips or tongue. Neck: Supple with a midline trachea. No meningeal signs or stiffness, no JVD or bruits. No Stridor. Chest: Clear to auscultation bilaterally. No wheezes or rhonchi. No increased work of breathing. Heart: regular rate and rhythm. Abdomen: Soft nontender, nondistended without rebound guarding or rigidity. Extremities: No cyanosis clubbing or edema. No calf tenderness or assymetry Spine/Back. Non tender to palpation. No CVA tenderness Skin: Good turgor without rashes. Neurologic exam: Cranial nerves two through 12 are intact. Motor and sensation are intact and symmetrical throughout. Psych: normal thought process, answering questions appropriately, no suicidal or homicidal ideation. Medical Decision & Procedures Laboratory Results 10/27/16 12:39 Red Blood Count 4.34, Mean Corpuscular Volume 94.0, Mean Corpuscular Hemoglobin 34.6, Mean Corpuscular Hemoglobin Concent 36.8, Mean Platelet Volume 9.5, Neutrophils (%) (Auto) 52.8, Lymphocytes (%) (Auto) 40.0, Monocytes (%) (Auto) 5.8, Eosinophils (%) (Auto) 1.1, Basophils (%) (Auto) 0.3, Neutrophils # (Auto) 3.30, Lymphocytes # (Auto) 2.50, Monocytes # (Auto) 0.36, Eosinophils # (Auto) 0.07, Basophils # (Auto) 0.02 10/27/16 12:39 Test 10/27/16 12:10 10/27/16 12:39 Urine Opiates Screen NEG (NEG) Urine Methadone, Qualitative NEG (NEG) Urine Barbiturates NEG (NEG) Urine Phencyclidine (PCP) Level NEG (NEG) Ur Amphetamine/Methamphetamine NEG (NEG) MDMA (Ecstasy) Screen NEG (NEG) Urine Benzodiazepines Screen NEG (NEG) Urine Cocaine Metabolite NEG (NEG) Urine Marijuana (THC) NEG (NEG) White Blood Count 6.25 K/uL (4.8-10.8) Red Blood Count 4.34 M/uL (4.7-6.1) Hemoglobin 15.0 g/dL (14.0-18.0) Hematocrit 40.8 % (42-52) Mean Corpuscular Volume 94.0 fL (80-100) Mean Corpuscular Hemoglobin 34.6 pg (25-34) Mean Corpuscular Hemoglobin Concent 36.8 g/dl (32-36) Platelet Count 178 K/uL (130-400) Mean Platelet Volume 9.5 fL (7.4-10.4) Neutrophils (%) (Auto) 52.8 % Lymphocytes (%) (Auto) 40.0 % Monocytes (%) (Auto) 5.8 % Eosinophils (%) (Auto) 1.1 % Basophils (%) (Auto) 0.3 % Neutrophils # (Auto) 3.30 K/uL (1.4-6.5) Lymphocytes # (Auto) 2.50 K/uL (1.2-3.4) Monocytes # (Auto) 0.36 K/uL (0.11-0.59) Eosinophils # (Auto) 0.07 K/uL (0-0.5) Basophils # (Auto) 0.02 K/uL (0-0.2) RDW Standard Deviation 44.5 fL (36.4-46.3) RDW Coefficient of Variation 12.9 % (11.5-14.5) Immature Granulocyte % (Auto) 0.0 % Immature Granulocyte # (Auto) 0.00 K/uL (0.00-0.02) Anion Gap 7.0 mmol/L (3-11) Est Creatinine Clear Calc Drug Dose 132.3 ml/min Estimated GFR () 111.5 Estimated GFR (Non- 96.2 BUN/Creatinine Ratio 11.9 (10-20) Calcium Level 9.2 mg/dl (8.5-10.1) Total Bilirubin 0.6 mg/dl (0.2-1) Direct Bilirubin 0.2 mg/dl (0-0.2) Aspartate Amino Transf (AST/SGOT) 27 U/L (15-37) Alanine Aminotransferase (ALT/SGPT) 49 U/L (12-78) Alkaline Phosphatase 53 U/L (45-117) Total Protein 7.9 gm/dl (6.4-8.2) Albumin 4.3 gm/dl (3.4-5.0) Lipase 246 U/L (73-393) Thyroid Stimulating Hormone (TSH) 1.190 uIu/ml (0.300-4.500) Salicylates Level 3.8 mg/dl (2.8-20) Acetaminophen Level < 2 ug/ml (10-30) Ethyl Alcohol mg/dL < 3.0 mg/dl (0-3) Laboratory studies as stated above per my review. Medications Administered Medications (Trade) Dose Ordered Sig/Ingrid Route Start Time Stop Time Status Last Admin Dose Admin Lorazepam (Ativan Tab) 2 mg NOW STAT SL 10/27/16 14:52 10/27/16 14:53 DC 10/27/16 14:52 2 MG ED Course 1214: Past medical records reviewed. The patient was evaluated in room A8, and a complete history and physical examination were performed. 1335: I reevaluated the patient. We are waiting on the mother to arrive. 1445: I reevaluated the patient. He began to act up again and was banging on the garage doors. He is willing to take Ativan. 1452: Lorazepam 2 mg SL. 1515: The patient is being evaluated by a mental health worker. Medical Decision Differential diagnoses: warner, depression, electrolyte or metabolic abnormality , toxicologic process. This patient comes in as described above. He was placed in room A8. Here for treatment and evaluation of warner. He's been here several times recently. He denies suicidal or homicidal ideations. According to his psychiatric care provider, he's been having manic behavior. The patient was cooperative with me. Blood work and urine was obtained. He has no evidence to suggest acute infectious, metabolic, or toxicologic process. He was reassessed frequently. He was medically cleared. He was seen by our case management team. She did fill a 302 petition as given his manic behavior does not feel. He states to be home. I did sign off the 302 and he was seen by the [facility] health worker. He did get somewhat agitated initially prior to this was given Ativan 2 mg by mouth was resting much more comfortably took this willingly. At present they are trying to arrange placement and the patient will be signed out to who will follow-up on this. Prior to sign out did check on the patient and he was sleeping in bed. Impression Primary Impression: Bipolar I disorder with warner Scribe Attestation The scribe's documentation has been prepared under my direction and personally reviewed by me in its entirety. I confirm that the note above accurately reflects all work, treatment, procedures, and medical decision making performed by me. Departure Information Referrals Constantine Zamudio, D.O.Int.Med. (PCP) Forms HOME CARE DOCUMENTATION FORM, IMPORTANT VISIT INFORMATION Patient Instructions My [facility]
[2016-10-27 14:19] LABS: BENZODIAZEPINE, URINE NEG (NEG); COCAINE,URINE NEG (NEG); PHENCYCLIDINE, URINE NEG (NEG)
[2016-10-27] MEDS ORDERED: NUTR-218 (14:21)
[2016-10-27] MEDS ORDERED: LORAZEPAM 1 MG TAB SL STA (14:52)
[2016-10-27] MEDS ORDERED: OMEG10007 PO (18:57)
[2016-10-27] MEDS ORDERED: CETI10TA84 PO (18:57)
[2016-10-27] MEDS ORDERED: ABL/15 PO (18:57)
[2016-10-27] MEDS ORDERED: FLUT1SPR12 NAE (18:57)
[2016-10-27] MEDS ORDERED: MULT-506 PO (18:57)
[2016-10-27] MEDS ORDERED: ESCI10TA17 PO (18:57)
[2016-10-27] MEDS ORDERED: BUPR-83 PO (18:57)
[2016-10-27] MEDS ORDERED: MAGNESIUM HYDROXIDE SUSP 30 ML UDC PO PRN (19:15)
[2016-10-27] MEDS ORDERED: BISMUTH SUBSALICYLATE PER ML OMNICELL CHARGE PO PRN (19:15)
[2016-10-27] MEDS ORDERED: ALUMINUM/MAGNESIUM SUSP 30 ML UDC PO PRN (19:15)
[2016-10-27] MEDS ORDERED: SODIUM CHLORIDE 0.65% NA SOLN 45 ML (OCEAN) PRN (19:15)
[2016-10-27] MEDS ORDERED: HALOPERIDOL 5 MG TAB PO PRN (19:15)
[2016-10-27] MEDS ORDERED: hydrOXYzine HCL 25 MG TAB PO PRN ×2 (19:15)
[2016-10-27] MEDS ORDERED: ACETAMINOPHEN 325 MG TAB PO PRN (19:15)
--- NOTE | 2016-10-27 19:29 | EMERGENCY ROOM VISIT NOTE ---
ED Visit Note The patient was taken in signout from Dr. Bijan Flores at the change of shift. Please see that note for details. The patient was pending bed placement. He was assessed and without complaints. 3[facility] accepted the patient.
[2016-10-27 19:35] VITALS: O2SAT 99
[2016-10-27 19:58] VITALS: BP 136/87; PULSE 65; TEMP 36.8; BMI 36.3
[2016-10-27] MEDS: PALIPERIDONE 3 MG TABCR PO SCH (21:10)
[2016-10-27] MEDS: PROPRANOLOL HCL 10 MG TAB PO SCH (21:10)
[2016-10-27] MEDS: LORAZEPAM 1 MG TAB PO SCH (21:10)
[2016-10-27] MEDS: DIVALPROEX 500 MG EXTENDED RELEASE TAB PO SCH (21:10)
[2016-10-28 04:55] VITALS: Ht 180.3 cm; Wt 118.2 kg
[2016-10-28 06:49] VITALS: BP_SYST 137; BP_SYST 141; BP_DIAS 84; BP_DIAS 90; PULSE 76; PULSE 87; TEMP 36.3
[2016-10-28] MEDS: OMEGA-3 (PURIFIED FISH OIL) 1 GM CAP PO SCH (09:59)
[2016-10-28] MEDS: PROPRANOLOL HCL 10 MG TAB PO SCH ×2 (09:59→21:12)
[2016-10-28] MEDS: MULTIVITAMIN TAB PO SCH (09:59)
[2016-10-28] MEDS: LORAZEPAM 1 MG TAB PO SCH ×2 (09:59→21:12)
[2016-10-28] MEDS: FLUTICASONE PROPIONATE NA SPR 16 GM BTL NAE SCH (09:59)
[2016-10-28] MEDS: CETIRIZINE HCL 10 MG TAB PO SCH (09:59)
--- NOTE | 2016-10-28 11:41 | HISTORY & PHYSICAL EXAMINATION ---
DATE OF ADMISSION: 10/27/2016 IDENTIFYING DATA: Jey Zelaya is a 40-year-old gentleman from [place], [place], admitted to our unit on a 302 involuntary commitment with an acute manic episode. Information is gathered in small part from the patient, but also from the 302 petitioner statement and the electronic medical record and past hospitalizations. All are considered to be reliable. CHIEF COMPLAINT: "None stated." HISTORY OF PRESENT ILLNESS: Jey Zelaya is a 40-year-old gentleman, known to us from previous hospitalizations for bipolar 1 disorder. He was last on our mental health unit from August to September 2014. At that time, he was manic, had been noncompliant with medications. He was discharged on Prolixin 2 mg a.m. and 4 mg at bedtime as well as lithium extended release 1050 mg at bedtime. He was discharged to the outpatient care of Dr. Whyte and his therapist, Fernando Hale. We do not have records or information as to how he did over the vast majority of the last 2 years, but according to the 302 petitioner statement from his mother, Jey stopped taking medications several weeks ago. He has not been sleeping for the last several days and then engaging in reckless and risky behaviors. She reports that he believes he is Anak from the bible and that nothing could hurt him. She reported in this statement that he is doing whatever God tells him to do. He went out and bought a new [employer] SUV, thinks it is a race car and has been driving in excess of 100 miles per hour at times. 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 She also reports that in addition to buying the [employer], he went back to the [employer] to try to arrange to buy a second car and a motorcycle. He also randomly purchased a plane ticket to [place]. She says he has been verbally and physically aggressive, ripped off his shirt in the ER lobby and also threw a metal tray in his Emergency Room. He thinks that other people are watching, stalking him including a girlfriend in a car dealership. She reports he has not been eating well, is losing weight. Again, in her statement, she said that he told the physician's operator assistant i cementing that day that he feels like God is leaving him in the dark and that he is tired of waiting on God. He said at that time that he has more direct contact with God and working at a speed of light. The patient was committed on a 302 involuntary commitment. He was agreeable to taking medications, restarted on his Depakote and provided Invega 6 mg at bedtime last night as he is reported to be on Invega Trinza. According to information, currently, he may not have had injections since June 30, which means he is over the 3-month due date. At the time I see the patient, I awakened him from sleep. He is groggy, but can answer minimally to some questions. He agrees that he stopped his meds weeks ago. He says he thought something like this what happened and agreed that he has been "manic." When asked why he stopped his medicines, he says he doubted that he wanted to be on the meds. I reflect back to him the reports that he thought he was Anak from the Bible. He agrees that he did and is not sure if he believes that today. He reports impaired sleep, but cannot further specify that. He denies that he has been having auditory or visual hallucinations. CURRENT MEDICATIONS: 1. Abilify 15 p.o. at supper. 2. Wellbutrin 100 mg daily. 3. Zyrtec 10 mg q.a.m. 4. Depakote 1500 mg at bedtime with the extended release. 5. Lexapro 10 mg a.m. 6. Arcadia-3 one cap with supper. 7. Flonase nasal spray 2 sprays each nostril. 8. Ativan 1 mg b.i.d. 9. Multivitamin 1 tab daily. 10. Invega Trinza 546 mg 2-3 months. 11. Inderal 10 mg b.i.d. PAST PSYCHIATRIC HISTORY: The patient reportedly switches providers and no longer seen at [facility], but is seen at [facility]. There is some indication that he may have been seen on the day of admission and was recommended to come to the ER. He has been in our mental health unit at least 4 times in the past. He has a remote history of having seen Dr. Jasso. He has not made a suicide attempt. He has a remote history of violence to inanimate objects including punching holes and doors and carlos at home and having thrown a chair in the Emergency Room during his last hospitalization. ACCESS TO GUNS: Unable to determine at this time. We will need to follow up with mother. PAST MEDICAL HISTORY: 1. Denies for personal history of diabetes, dyslipidemia or cardiovascular disease. 2. Hypertension. 3. Class 2 obesity with a current BMI of 36.4. 4. Tobacco use -- uncertain if he is continuing to smoke at this time. FAMILY HISTORY: Denied for mental illness or addictions issues. Medically, obesity in brother. Denies family history for dyslipidemia, cardiovascular disease, hypertension or diabetes. SUBSTANCE USE HISTORY: Per old records, the patient has been a drinker in the past and has had DUIs. He currently denies that he is drinking alcohol. He also has a remote history of marijuana use and a more remote history of cocaine use. He has been in rehab at least once at [facility] in the past. He is currently denying the use of marijuana or any other illegal substances. PERSONAL HISTORY: The patient grew up locally. He was raised by both his parents until they and when he was young. He has 1 brother and 1 sister. He has a younger half brother on his father's side. He lives with his mother in [place]. He has attended multiple postsecondary institutes including [employer], [employer] and [employer], but never received a degree. He has been on disability for mental health reasons. 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 He has never been and has no children. He does consider himself to be a spiritual individual and is currently hyperreligious, believing he is Anak. He previously denied any psychological trauma history including physical, emotional, or sexual abuse. MENTAL STATUS EXAMINATION A 40-year-old gentleman with short dyed blonde hair, dressed in a jordin shirt and hospital scrub pants. He is lying in bed, awakened for the interview. He is groggy and hard to keep awake. Eye contact is almost none as he keeps his eyes closed. Motor behavior is tired. Speech is garbled, quiet, but of normal rate. Affect is tired. Mood has been euphoric, believing to be somebody from the Bible. Thought process today is organized and goal directed in response to questions. He denies auditory or visual hallucinations, but endorses delusions that he is Anak and communicating with God. Today, he is oriented to person and location and further memory testing is not pursued due to the patient's somnolence. His intelligence is estimated to be average. His insight and judgment are grossly impaired. VITAL SIGNS: Temperature 36.3, pulse 76 supine and 87 sitting, respirations 16, and blood pressure 137/90 supine and 141/84 sitting. LABORATORIES: 1. CBC with diff -- notable for low RBCs 4.34, low hematocrit 40.8, elevated MCH 36.6 and an MCHC of 36.8. 2. Chem profile -- within normal limits. 3. TSH -- within normal limits at 1.190. 4. Toxicology -- negative. REVIEW OF SYSTEMS: The patient denies any chest pain, shortness of breath, nausea, vomiting, diarrhea, or constipation. Further review of systems deferred due to somnolence. PHYSICAL EXAMINATION: Exam performed by Dr. Flores in the Emergency Room last night has been reviewed and accepted as medical clearance for our mental health unit. PATIENT'S STRENGTHS AND NEEDS: 1. Strengths -- spiritual beliefs, support from mother. 2. Needs to remain compliant with the recommended treatments. RISK ASSESSMENT: 1. Risk factors -- male, , single, chronic mental illness, history of substance use, multiple hospitalizations in the past, and noncompliance with medications. 2. Protective factors -- spiritual beliefs, support from mother, no significant comorbid medical conditions that would impair recovery, willingness currently to take medications. IMPRESSION: A 40-year-old gentleman with known bipolar 1 disorder, admitted in a manic episode with psychotic features. He is reported to be on Invega Trinza, although we will need to confirm when his last dose was administered. It may be that it has not been administered in a timely fashion thus contributing to his deterioration. He also admits to stopping all of his p.o. meds several weeks ago. We will renew his Depakote 1500 mg at bedtime and will start him on Invega oral 6 mg at bedtime as we clarify medications. We will also order Haldol p.r.n. as he has recently been agitated. He has been resistant to medications in the past and so, I am glad that he is on the every 3 month injection of Trinza. If it turns out that he has missed his injection, we will proceed to get him back to that long-acting injectable. He is here on a 302 involuntary commitment and therefore, we will continue to gather information toward the need for further inpatient treatment. At this time, however, he requires inpatient treatment due to the severity of his condition and the risk for harm to self and others based on his inability to manage information in a reality based way. DIAGNOSES: 1. Bipolar 1, manic, with psychotic features. 2. History of polysubstance abuse including alcohol and cannabis. 3. Borderline personality disorder by old records. 4. Hypertension. 5. Obesity. PLAN: Has been reviewed with Dr. Fozia Gu. 1. Bipolar disorder. a. Restart Depakote ER 15 mg at bedtime with a Depakote level in 5 days. b. Start Invega 6 mg at bedtime. c. Clarify last dose of Invega Trinza and other medications. d. Med rec includes multiple antidepressants, which will be held at this time. e. Continue Ativan 1 mg b.i.d. f. Coordinate care and obtain records from providers. g. Family meeting as indicated and obtain supplemental information from mother, who is a 302 petitioner. h. The patient is excused from group programming until he is capable of participating appropriately. i. Encourage sleep and low stimulation. j. Reality orientation. 2. Hypertension. a. Continue Inderal 10 mg b.i.d. 3. Obesity. a. Encourage exercise and appropriate diet choices. INITIAL HOSPITAL CARE: [id number].
[2016-10-28] MEDS: DIVALPROEX 500 MG EXTENDED RELEASE TAB PO SCH ×2 (21:14→22:00)
[2016-10-28] MEDS: PALIPERIDONE 3 MG TABCR PO SCH ×2 (21:14→22:00)
[2016-10-29 02:30] VITALS: BP 115/75; PULSE 90; TEMP 36.5
[2016-10-29 06:50] VITALS: BP_SYST 108; BP_SYST 113; BP_DIAS 76; BP_DIAS 81; PULSE 147; PULSE 89; TEMP 36.4
--- NOTE | 2016-10-29 08:21 | Psychiatric Progress Notes ---
Progress Note Date of Service Oct 29, 2016. Interval History Jey Zelaya is a 40-year-old gentleman from [place], [place], admitted to our unit on a 302 involuntary commitment on 10/27/16 ( see formal H&P 10/28/16) with an acute manic episode. Chief Complaint "You need to let me out of here". Subjective Patient was seen & assessed interval progress reviewed with Nursing He is in [facility] due to degree of warner and agitation (per nursing has a history of elopement) and on elopement precautions. Per nursing he continues to have poor insight and is grandiose and continues to discuss things he will buy and talks about purchase of a motor cycle. He discussed wanting to go to the [employer] to support keeping it open in the face of closure. He expressed anger and thoughts to hurt Martina torres and Jey's mother because if it weren't for them he would not be here. 10/28/16 he was very labile waking up angry then pleasant then sleeping again. He continues to debate details of his prior visit that are inconsequential "I never said I was God....I said I was the spirit of God" He refused his depakote and invega yesterday. By report of staff he received Trinza in September 2016 Patient see in his room after he had thrown an object toward the wall in his room out of frustration with nursing setting a limit on his access to his cell phone. He remains fixated on "having business to do" and is angry and irritable at his mother for his being here. He has no insight to why he might be in the hospital and when provider discusses warner he denies stating "I am not manic" When asking about side effects he states he is feeling tired when he sits still , when asked if he has tried to nap he states "about 10 times today" he does not appear sedated and is pressured but redirectable. He has odd behaviors such as taking a meditated stance making an "ohm" sound then saying over and over "what would Pasha do in this moment?" He tells me he is not of this earth and has the spirit of Piter in him. He denies having thoughts to hurt himself or others and does admit that he had said he wanted to kill his mother a few days ago because he was angry. He denies wanting to actually kill her but also has no insight as to why others would be alarmed with his statements. He states he speeds when driving because he wants to and when provider noted it was unsafe he says "f---it, everyone speeds." Review of Systems He denies physical pain, states he is sleepy when he sits for too long, denies other concerns, states his appetite is increased. Sleep Information Total Hours of Sleep: 5.25 Meal Information Percent of Breakfast Consumed: 100 Percent of Lunch Consumed: 100 Percent of Dinner Consumed: 100 Mental Status Exam During interview pt is: alert and oriented, other (argumentative in his language and tone) Appearance: other (wearing shorts and t-shirt, socks and slippers) Eye contact is: good Motor behavior is: steady gait & station, psychomotor agitation (standing and sitting then pacing around the room while talking) Speech: is pressured, loud Affect: labile, irritable Mood is: irritable Thought process: tangential, perseveration (on how others are keeping him here) Thought content: preoccupation, cognitive distortions, delusions (of having the spirit of Crystal in him), persecution, other (grandiosity ) Suicidal thought are: denied Homicidal thoughts are: denied Hallucinations: denies auditory, denies visual Cognition: memory grossly intact, attention grossly intact Intelligence estimated to be: average Insight: poor Judgement: poor Impression Ongoing bipolar I with mixed manic features today, remains delusional, grandiose , and labile. Long history of non-compliance. He is presnetly on 302 involuntary committment with no insight to his behavior, to the dangerous statements he has made and to the actions he has when manic such as speeding. This is the least restrictive and most appropriate setting for care at this time. Plan (1) Bipolar disorder 10/28/16 - depakote retarted at 1500mg/bedtime - invega 6mg oral started at bedtime, last trinza shot was end of September 2016 date needs to be confirmed - continue ativan 1mg po bid - continue 302 involuntary status 10/29/16 - continue plan as above, although goal is not to sedate him the fact that he is starting to feel tired is a good prognostic sign that he is starting to respond to depakote - fasting blood glucose 10/29/16 WNL at 94; fasting lipids WNL (2) Hypertension 10/28/16 - continue inderall 10mg po bid (3) Obesity 10/28/16 - encouraged physical activity and watching diet 10/29/16 - agree with above - if weight gain continues could consider medications such as metformin to offset the gain of his psychotropic medications Discharge / Aftercare Planning Therapist: Name: Fernando Hale Visit Code E&M Code: 58294 Data Vital Signs Last 24 Hrs: Date Time Temp Pulse Resp B/P Pulse Ox O2 Delivery O2 Flow Rate FiO2 10/29/16 06:50 36.4 147 16 108/76 89 113/81 10/29/16 02:30 36.5 90 17 115/75 Meds Administered Last 24 Hrs: Meds Administered (Past 24Hrs) Medications (Trade) Dose Ordered Sig/Ingrid Route Start Time Stop Time Status Last Admin Dose Admin Lorazepam (Ativan Tab) 2 mg NOW STAT SL 10/27/16 14:52 10/27/16 14:53 DC 10/27/16 14:52 2 MG Cetirizine HCl (zyrTEC TAB) 10 mg QAM PO 10/28/16 09:00 11/27/16 08:59 10/28/16 09:59 10 MG Divalproex Sodium (Depakote Extended Rel Tab) 1,500 mg HS PO 10/27/16 21:00 11/26/16 20:59 10/28/16 22:00 1,500 MG Fish Oil (Arcadia-3 (Purified Fish Oil) Cap) 1 gm DAILY PO 10/28/16 09:00 11/27/16 08:59 10/28/16 09:59 1 GM Fluticasone Propionate (Flonase Nasal [place]) 2 sprays DAILY EDU 10/28/16 09:00 11/27/16 08:59 10/28/16 09:59 2 SPRAYS Lorazepam (Ativan Tab) 1 mg BID PO 10/27/16 21:00 11/26/16 20:59 10/28/16 21:12 1 MG Multivitamins (Multivitamin Tab) 1 tab DAILY PO 10/28/16 09:00 11/27/16 08:59 10/28/16 09:59 1 TAB Propranolol HCl (Inderal Tab) 10 mg BID PO 10/27/16 21:00 11/26/16 20:59 10/28/16 21:12 10 MG Paliperidone (Invega) 6 mg HS PO 10/27/16 21:00 11/26/16 20:59 10/28/16 22:00 6 MG Lab Results Last 24 Hrs: Last 24 Hours Test 10/29/16 07:28 Fasting Glucose 94 mg/dl
[2016-10-29 08:22] LABS: CHOLESTEROL/HDL RATIO 4.2
[2016-10-29] MEDS: FLUTICASONE PROPIONATE NA SPR 16 GM BTL NAE SCH (08:34)
[2016-10-29] MEDS: LORAZEPAM 1 MG TAB PO SCH ×2 (08:34→22:00)
[2016-10-29] MEDS: OMEGA-3 (PURIFIED FISH OIL) 1 GM CAP PO SCH (08:35)
[2016-10-29] MEDS: CETIRIZINE HCL 10 MG TAB PO SCH (08:35)
[2016-10-29] MEDS: PROPRANOLOL HCL 10 MG TAB PO SCH ×2 (08:35→22:01)
[2016-10-29] MEDS: MULTIVITAMIN TAB PO SCH (08:35)
[2016-10-29] MEDS: PALIPERIDONE 3 MG TABCR PO SCH (22:01)
[2016-10-29] MEDS: DIVALPROEX 500 MG EXTENDED RELEASE TAB PO SCH (22:01)
[2016-10-30 06:42] VITALS: BP_SYST 113; BP_SYST 116; BP_DIAS 80; PULSE 94; PULSE 99; TEMP 36.4
[2016-10-30] MEDS: OMEGA-3 (PURIFIED FISH OIL) 1 GM CAP PO SCH (08:36)
[2016-10-30] MEDS: MULTIVITAMIN TAB PO SCH (08:36)
[2016-10-30] MEDS: FLUTICASONE PROPIONATE NA SPR 16 GM BTL NAE SCH (08:36)
[2016-10-30] MEDS: PROPRANOLOL HCL 10 MG TAB PO SCH ×2 (08:36→22:07)
[2016-10-30] MEDS: LORAZEPAM 1 MG TAB PO SCH ×2 (08:36→22:07)
[2016-10-30] MEDS: CETIRIZINE HCL 10 MG TAB PO SCH (08:37)
--- NOTE | 2016-10-30 14:15 | Psychiatric Progress Notes ---
Progress Note Date of Service Oct 30, 2016. Interval History Jey Zelaya is a 40-year-old gentleman from [place], [place], admitted to our unit on a 302 involuntary commitment on 10/27/16 ( see formal H&P 10/28/16) with an acute manic episode. Chief Complaint "Better today". Subjective Patient was seen & assessed interval progress reviewed with Nursing and chart reveiwed He was very labile yesterday throwing his cup of water in his room and also continued to be irritable and intrusive about his phone access to check for numbers, and then when the phone was buzzing with many messages he became overwhelmed and slammed his bedroom, and then the nursing staff set limits with him on the phone and he further became ruminative and focussed on his phone. He was labile vascillating between kind and supportive to other patients then at another time slammed the nursing station door and had limited insight when staff approached him to discuss how threatening He slammed on the back door 3 times last night (this was the way he eloped on the past slamming on the door and breaking it) He was rude to his mother and angry making mean statements and told her to leave. He refuses to sign his Medicare form explaining his rights (given to all Medicare patients at admission) and declined "unless I have an attourney present " He was yelling in the dayroom yesterday causing chaos last evening This AM he is already hounding the nursing staff this AM about his phone. He fights the sleepiness, he slept restless 4.5 hours overnight but will fall asleep eating, and the exercise bike or sitting trying to write. Patient seen at his bedside. He is notably somnolent closing his eyes in the conversation, walking around or standing at times to stay awake. He states he does not want to sleep. He does state he feels less angry today "compared to yesterday" and feels "better" but appears sudued. He denies physical concerns other than being tired, and denies safety concerns to this provider. He is receptive to provider's use of words like "bipolar disorder" and recommendation that he needs to sleep to recover from this warner. Review of Systems Patient states he feels tired. He also notes he has some urinary urgency where he will "dribble" prior to getting his penis out. He denies s/sx of hesitancy at any time, denies full loss of bladder day or night. He denies dysuria, denies discharge, denies evidence of blood in urine. Denies pain. States " this has been all my life" but then does agree he feels it is happening more "lately" He denies other physical concerns at this time. Sleep Information Total Hours of Sleep: 4.50 Meal Information Percent of Breakfast Consumed: 100 Percent of Lunch Consumed: 100 Percent of Dinner Consumed: 100 Mental Status Exam During interview pt is: other (sudued and appears somnolent but attempts to particpate and is oriented) Appearance: other (wearing shorts and t-shirt, socks and slippers) Eye contact is: poor Motor behavior is: steady gait & station (does not appear unsteady and is more awake when standing and walking, somnolent when sitting) Speech: other (sudued tone, talks with eyes closed while sitting, not pressured ) Affect: blunted Mood is: other (sudued) Thought process: clear, coherent, other (minimal spontaneous thought, answers questions appropriately, not perseverating with this provider) Thought content: other (no overt grandiosity) Suicidal thought are: denied Homicidal thoughts are: denied Hallucinations: denies auditory, denies visual Cognition: memory grossly intact, attention grossly intact Intelligence estimated to be: average Insight: poor Judgement: poor Impression Bipolar I with mixed warner wtih evidence of delusional, grandiose, and labile behavior overnight but today seems to be slowing and becoming more sudued on medications.. Long history of non-compliance. He is presently on 302 involuntary committment with no insight to his behavior, to the dangerous statements he has made and to the actions he has when manic such as speeding. This is the least restrictive and most appropriate setting for care at this time. Plan (1) Bipolar disorder 10/28/16 - depakote retarted at 1500mg/bedtime - invega 6mg oral started at bedtime, last trinza shot was end of September 2016 date needs to be confirmed - continue ativan 1mg po bid - continue 302 involuntary status 10/29/16 - continue plan as above, although goal is not to sedate him the fact that he is starting to feel tired is a good prognostic sign that he is starting to respond to depakote - fasting blood glucose 10/29/16 WNL at 94; fasting lipids WNL 10/30/16 - patient appears to be responding to medications, will monitor his somnolence and appreciate a few days of somnolence for recovery period from warner, VAP level is ordered for this week (2) Hypertension 10/28/16 - continue inderall 10mg po bid (3) Obesity 10/28/16 - encouraged physical activity and watching diet 10/29/16 and 10/30/16 - agree with above - if weight gain continues could consider medications such as metformin to offset the gain of his psychotropic medications Discharge / Aftercare Planning Therapist: Name: Fernando Hale Visit Code E&M Code: 85803 Data Vital Signs Last 24 Hrs: Date Time Temp Pulse Resp B/P Pulse Ox O2 Delivery O2 Flow Rate FiO2 10/30/16 06:42 36.4 99 16 116/80 94 113/80 Meds Administered Last 24 Hrs: Meds Administered (Past 24Hrs) Medications (Trade) Dose Ordered Sig/Ingrid Route Start Time Stop Time Status Last Admin Dose Admin Cetirizine HCl (zyrTEC TAB) 10 mg QAM PO 10/28/16 09:00 11/27/16 08:59 10/30/16 08:37 10 MG Fish Oil ([place]-3 (Purified Fish Oil) Cap) 1 gm DAILY PO 10/28/16 09:00 11/27/16 08:59 10/30/16 08:36 1 GM Fluticasone Propionate (Flonase Nasal [place]) 2 sprays DAILY EDU 10/28/16 09:00 11/27/16 08:59 10/30/16 08:36 2 SPRAYS Multivitamins (Multivitamin Tab) 1 tab DAILY PO 10/28/16 09:00 11/27/16 08:59 10/30/16 08:36 1 TAB
[2016-10-30] MEDS: DIVALPROEX 500 MG EXTENDED RELEASE TAB PO SCH (22:07)
[2016-10-30] MEDS: PALIPERIDONE 3 MG TABCR PO SCH (22:08)
[2016-10-31 06:51] VITALS: BP_SYST 121; BP_DIAS 73; BP_DIAS 80; PULSE 114; PULSE 81; TEMP 36.4
[2016-10-31] MEDS: CETIRIZINE HCL 10 MG TAB PO SCH (08:03)
[2016-10-31] MEDS: OMEGA-3 (PURIFIED FISH OIL) 1 GM CAP PO SCH (08:03)
[2016-10-31] MEDS: MULTIVITAMIN TAB PO SCH (08:03)
[2016-10-31] MEDS: PROPRANOLOL HCL 10 MG TAB PO SCH ×2 (08:03→22:01)
[2016-10-31] MEDS: LORAZEPAM 1 MG TAB PO SCH ×2 (08:03→22:00)
[2016-10-31] MEDS: FLUTICASONE PROPIONATE NA SPR 16 GM BTL NAE SCH (08:03)
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
[2016-10-31] MEDS: DIVALPROEX 500 MG EXTENDED RELEASE TAB PO SCH (22:00)
[2016-10-31] MEDS: PALIPERIDONE 3 MG TABCR PO SCH (22:02)
[2016-11-01] MEDS: LORAZEPAM 1 MG TAB PO PRN ×2 (05:42→10:03)
[2016-11-01 06:56] VITALS: BP_SYST 127; BP_SYST 138; BP_DIAS 83; BP_DIAS 84; PULSE 109; PULSE 83; TEMP 36.4
[2016-11-01] MEDS: LORAZEPAM 1 MG TAB PO SCH ×2 (07:32→21:22)
[2016-11-01] MEDS: FLUTICASONE PROPIONATE NA SPR 16 GM BTL NAE SCH (07:32)
[2016-11-01] MEDS: PROPRANOLOL HCL 10 MG TAB PO SCH ×2 (07:33→21:23)
[2016-11-01] MEDS: OMEGA-3 (PURIFIED FISH OIL) 1 GM CAP PO SCH (07:33)
[2016-11-01] MEDS: CETIRIZINE HCL 10 MG TAB PO SCH (07:33)
[2016-11-01] MEDS: MULTIVITAMIN TAB PO SCH (07:33)
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
[2016-11-01] MEDS: DIVALPROEX 500 MG EXTENDED RELEASE TAB PO SCH (21:22)
[2016-11-01] MEDS: PALIPERIDONE 3 MG TABCR PO SCH (21:23)
[2016-11-02 06:58] VITALS: BP_SYST 121; BP_SYST 122; BP_DIAS 75; PULSE 112; PULSE 88; TEMP 36.3
[2016-11-02] MEDS: MULTIVITAMIN TAB PO SCH (08:13)
[2016-11-02] MEDS: OMEGA-3 (PURIFIED FISH OIL) 1 GM CAP PO SCH (08:13)
[2016-11-02] MEDS: LORAZEPAM 1 MG TAB PO SCH ×2 (08:13→21:26)
[2016-11-02] MEDS: CETIRIZINE HCL 10 MG TAB PO SCH (08:13)
[2016-11-02] MEDS: PROPRANOLOL HCL 10 MG TAB PO SCH ×2 (08:14→21:27)
[2016-11-02] MEDS: FLUTICASONE PROPIONATE NA SPR 16 GM BTL NAE SCH (08:14)
--- NOTE | 2016-11-02 11:29 | Psychiatric Progress Notes ---
Progress Note Date of Service Nov 02, 2016. Interval History Jey Zelaya is a 40-year-old gentleman with bipolar type 1 who lives with his mother in [place], [place], and was admitted to our unit on a 302 involuntary commitment on 10/27/16 with an acute manic episode. He is on a 303 commitment as of 11/01/2016. Chief Complaint "Tired". Subjective Patient was seen & assessed interval progress reviewed with Treatment Team. The patient says that he is tired. He received a prn dose of Haldol yesterday in addition to his regular meds. He answers questions reasonably today, although with few words due to his sedation. He denies having any hallucinations and says "and don't ask me that ever again". He denies elevated energy or racing thoughts. When asked about grandiose thoughts he says that he wants to create an jacinto, but acknowledges that he lacks the skill set necessary to do so. He still feels frustrated about being in the hospital saying he doesn 't think that he needs to be here, "but I can't do anything about it.". Nursing reports that he was agitated, angry, throwing things after the 303 hearing yesterday and received prn haldol, after which he was somnolent for the remainder of the day. Review of Systems Constitutional: + fatigue ENT: No dental problems, No hearing loss, No nasal symptoms, No problem reported, No sore throat, No tinnitus, No trouble swallowing, No unusual epistaxis Respiratory: No cough, No dyspnea at rest, No dyspnea on exertion, No hemoptysis, No problem reported, No shortness of breath, No sputum, No wheezing Cardiovascular: No PND, No chest pain, No claudication, No edema, No orthopnea , No palpitations, No problem reported Abdomen: No GI bleeding, No constipation, No diarrhea, No nausea, No pain, No problem reported, No vomiting Musculoskeletal: No calf pain, No joint pain, No muscle pain, No problem reported, No swelling Neurologic: No balance problems, No memory loss, No numbness/tingling, No paralysis, No problem reported, No vertigo, No weakness Psychiatric: + problem reported (grandiose thoughts to create an jacinto) Integumentary: No bleeding, No color change, No itch, No new/changing skin lesions, No problem reported, No rash Sleep Information Total Hours of Sleep: 10.50 Meal Information Percent of Breakfast Consumed: 100 Percent of Lunch Consumed: 100 Percent of Dinner Consumed: 100 Mental Status Exam During interview pt is: alert and oriented Appearance: appropriately dressed (jeans and a T-shirt, tired and falling asleep) Eye contact is: poor (due to falling asleep) Motor behavior is: psychomotor retardation Speech: other (slow) Affect: flat (tired) Mood is: other (neutral) Thought process: goal directed Thought content: delusions (grandiose) Suicidal thought are: denied Homicidal thoughts are: denied Hallucinations: denies auditory, denies visual Cognition: other (memory and attention impaired, as evidenced by inability to recall multiple conversations about his treatment) Intelligence estimated to be: average Insight: severely impaired Judgement: severely impaired Summary of Past History Records from [facility] reviewed from visit with LADARIUS Lopez, on 2016. He presented for follow-up with his mother, reported he had recently dyed his hair, and stated he wanted it to be Silver so he would look older and be respected more. He stated his [id number] had threatened him with a gun because the patient was telling him he cared about him. He talked about feeling that God was "leaving him in the dark" and he was tired of waiting on God. He said he bought a new car, and did not know how he would pay for it, but was dressed up because he planned to go to the bank after his appointment in order to buy another car and motorcycle. He said he had not been taking his medications because he felt "clearer without them." He talked about having "more direct contact with God, not really thinking about things, just going with being at the speed of light contact with God." He said he had only slept 1 -2 hours in the past month, and had been sleeping in his car, because it was more comfortable than his bed. His mother said he had been irrational, increasingly irritable, but plane tickets to [place], was spending excessive amounts of money, not sleeping, and refusing to take his medications. She was very concerned about him, and wanted him to be hospitalized. 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 He left the office and anger, and left his mother there was no transportation. She was encouraged to contact [facility] crisis. Impression some improvement to warner now that he's back on meds, but is irritable, not believing he needs to be in the hospital. Today is sedated after receiving prn haldol yesterday after an episode of agitation. For now will continue with current meds. [place] form submitted yesterday to revoke license in view of unsafe driving practices related to his warner. Is still too irritable to meet with his mother to discuss his treatment post discharge. Plan (1) Bipolar disorder 10/28/16 - depakote retarted at 1500mg/bedtime - invega 6mg oral started at bedtime, last trinza shot was end of September 2016 date needs to be confirmed - continue ativan 1mg po bid - continue 302 involuntary status 10/29/16 - continue plan as above, although goal is not to sedate him the fact that he is starting to feel tired is a good prognostic sign that he is starting to respond to depakote - fasting blood glucose 10/29/16 WNL at 94; fasting lipids WNL 10/30/16 - patient appears to be responding to medications, will monitor his somnolence and appreciate a few days of somnolence for recovery period from warner, VPA level is ordered for this week 10/31/16 - Continue Depakote and check trough level tomorrow. Continue oral Invega in addition to Trinza injection. - Continue Ativan for calming effect and acute stabilization only, will taper off prior to discharge due to substance abuse history. - Patient states he is willing to sign a release for his outpatient providers today, and we will coordinate care. - Patient agrees to sign a release for his mother, and will schedule a family meeting. - File for 303 commitment. - Submit mandated DMV reporting form due to unsafe driving while manic, putting himself and others at risk. 11/01/16 - 303 commitment granted. - Depakote trough level pending. - Continue Haldol 10 mg and Ativan 1 mg as needed for agitation. - Continue medically necessary private room for frequent episodes of agitation and aggression. The patient has been informed that is expected he will remain in good behavioral control, and that he can be held accountable if he causes property damage or harms another person here on the unit. 11/02 - Continue current meds - Continue MNPR for another 24 hrs but if in behavioral controll, may be able to DC (2) Hypertension 10/28/16 - continue propranolol 10mg po bid 10/31 - Pressure well controlled here. Continue to monitor. (3) Obesity 10/28/16 - encouraged physical activity and watching diet 10/29/16 and 10/30/16 - agree with above - if weight gain continues could consider medications such as metformin to offset the gain of his psychotropic medications Discharge / Aftercare Planning Psychiatrist: Name: LADARIUS Lopez at [facility] [place] Therapist: Name: Fernando Hale Industrial Machine System Technician: Name: Santino Holland Visit Code E&M Code: 67211 Risk Factors Assessment Male: Yes : Yes /single/: Yes Higher / Fall in social status: No Access to guns: No Health problems: Yes Mental Health Diagnoses: Yes Substance use disorders: No Previous psychiatric stay: Yes Protective Factors Assessment Mormon beliefs: Yes : No Responsible for young children: No Stable relationships: Yes Supportive family: Yes Good rapport with provider: Yes Data Vital Signs Last 24 Hrs: Date Time Temp Pulse Resp B/P Pulse Ox O2 Delivery O2 Flow Rate FiO2 11/02/16 06:58 36.3 88 18 121/75 112 122/75 Meds Administered Last 24 Hrs: Current Inpatient Medications Medications (Trade) Dose Ordered Sig/Ingrid Route Start Time Stop Time Status Last Admin Dose Admin Acetaminophen (Tylenol Tab) 650 mg Q4H PRN PO 10/27/16 19:15 11/26/16 19:14 Bismuth Subsalicylate (Kaopectate Liqd) 15 ml PRN PRN PO 10/27/16 19:15 11/26/16 19:14 Al Hydroxide/Mg Hydroxide (Maalox Susp) 30 ml Q4H PRN PO 10/27/16 19:15 11/26/16 19:14 Magnesium Hydroxide (Milk Of Magnesia Susp) 30 ml DAILY PRN PO 10/27/16 19:15 11/26/16 19:14 Sodium Chloride ([place] Nasal [place]) PRN PRN NA 10/27/16 19:15 11/26/16 19:14 Hydroxyzine HCl (Vistaril Tab) 50 mg HSZ PRN PO 10/27/16 19:15 11/26/16 19:14 Hydroxyzine HCl (Vistaril Tab) 25 mg Q4H PRN PO 10/27/16 19:15 11/26/16 19:14 Cetirizine HCl (zyrTEC TAB) 10 mg QAM PO 10/28/16 09:00 11/27/16 08:59 11/02/16 08:13 10 MG Divalproex Sodium (Depakote Extended Rel Tab) 1,500 mg HS PO 10/27/16 21:00 11/26/16 20:59 11/01/16 21:22 1,500 MG Fish Oil ([place]-3 (Purified Fish Oil) Cap) 1 gm DAILY PO 10/28/16 09:00 11/27/16 08:59 11/02/16 08:13 1 GM Fluticasone Propionate (Flonase Nasal [place]) 2 sprays DAILY EDU 10/28/16 09:00 11/27/16 08:59 11/02/16 08:14 2 SPRAYS Lorazepam (Ativan Tab) 1 mg BID PO 10/27/16 21:00 11/26/16 20:59 11/02/16 08:13 1 MG Multivitamins (Multivitamin Tab) 1 tab DAILY PO 10/28/16 09:00 11/27/16 08:59 11/02/16 08:13 1 TAB Propranolol HCl (Inderal Tab) 10 mg BID PO 10/27/16 21:00 11/26/16 20:59 11/02/16 08:14 10 MG Paliperidone (Invega) 6 mg HS PO 10/27/16 21:00 11/26/16 20:59 11/01/16 21:23 6 MG Haloperidol (Haldol Tab) 10 mg Q6H PRN PO 10/27/16 19:15 11/26/16 19:14 11/01/16 10:03 10 MG Lorazepam (Ativan Tab) 1 mg Q4H PRN PO 10/27/16 19:15 11/26/16 19:14 11/01/16 10:03 1 MG Lab Results Last 24 Hrs: 10/27/16 12:39 Red Blood Count 4.34, Mean Corpuscular Volume 94.0, Mean Corpuscular Hemoglobin 34.6, Mean Corpuscular Hemoglobin Concent 36.8, Mean Platelet Volume 9.5, Neutrophils (%) (Auto) 52.8, Lymphocytes (%) (Auto) 40.0, Monocytes (%) (Auto) 5.8, Eosinophils (%) (Auto) 1.1, Basophils (%) (Auto) 0.3, Neutrophils # (Auto) 3.30, Lymphocytes # (Auto) 2.50, Monocytes # (Auto) 0.36, Eosinophils # (Auto) 0.07, Basophils # (Auto) 0.02 10/27/16 12:39 Test 10/27/16 12:10 10/27/16 12:39 10/29/16 07:28 11/01/16 09:51 Urine Opiates Screen NEG (NEG) Urine Methadone, Qualitative NEG (NEG) Urine Barbiturates NEG (NEG) Urine Phencyclidine (PCP) Level NEG (NEG) Ur Amphetamine/Methamphetamine NEG (NEG) MDMA (Ecstasy) Screen NEG (NEG) Urine Benzodiazepines Screen NEG (NEG) Urine Cocaine Metabolite NEG (NEG) Urine Marijuana (THC) NEG (NEG) White Blood Count 6.25 K/uL (4.8-10.8) Red Blood Count 4.34 M/uL (4.7-6.1) Hemoglobin 15.0 g/dL (14.0-18.0) Hematocrit 40.8 % (42-52) Mean Corpuscular Volume 94.0 fL (80-100) Mean Corpuscular Hemoglobin 34.6 pg (25-34) Mean Corpuscular Hemoglobin Concent 36.8 g/dl (32-36) Platelet Count 178 K/uL (130-400) Mean Platelet Volume 9.5 fL (7.4-10.4) Neutrophils (%) (Auto) 52.8 % Lymphocytes (%) (Auto) 40.0 % Monocytes (%) (Auto) 5.8 % Eosinophils (%) (Auto) 1.1 % Basophils (%) (Auto) 0.3 % Neutrophils # (Auto) 3.30 K/uL (1.4-6.5) Lymphocytes # (Auto) 2.50 K/uL (1.2-3.4) Monocytes # (Auto) 0.36 K/uL (0.11-0.59) Eosinophils # (Auto) 0.07 K/uL (0-0.5) Basophils # (Auto) 0.02 K/uL (0-0.2) RDW Standard Deviation 44.5 fL (36.4-46.3) RDW Coefficient of Variation 12.9 % (11.5-14.5) Immature Granulocyte % (Auto) 0.0 % Immature Granulocyte # (Auto) 0.00 K/uL (0.00-0.02) Anion Gap 7.0 mmol/L (3-11) Est Creatinine Clear Calc Drug Dose 132.3 ml/min Estimated GFR () 111.5 Estimated GFR (Non- 96.2 BUN/Creatinine Ratio 11.9 (10-20) Calcium Level 9.2 mg/dl (8.5-10.1) Total Bilirubin 0.6 mg/dl (0.2-1) Direct Bilirubin 0.2 mg/dl (0-0.2) Aspartate Amino Transf (AST/SGOT) 27 U/L (15-37) Alanine Aminotransferase (ALT/SGPT) 49 U/L (12-78) Alkaline Phosphatase 53 U/L (45-117) Total Protein 7.9 gm/dl (6.4-8.2) Albumin 4.3 gm/dl (3.4-5.0) Lipase 246 U/L (73-393) Thyroid Stimulating Hormone (TSH) 1.190 uIu/ml (0.300-4.500) Salicylates Level 3.8 mg/dl (2.8-20) Acetaminophen Level < 2 ug/ml (10-30) Ethyl Alcohol mg/dL < 3.0 mg/dl (0-3) Fasting Glucose 94 mg/dl (70-99) Triglycerides Level 74 mg/dl (0-150) Cholesterol Level 131 mg/dl (0-200) HDL Cholesterol 31 mg/dl LDL Cholesterol, Calculated 85 mg/dl VLDL Cholesterol, Calculated 15 mg/dl Cholesterol/HDL Ratio 4.2 Valproic Acid (Depakene) Level 89 mcg/ml (50-100) Problem Qualifiers (1) Bipolar disorder: Current bipolar episode type: manic Current episode severity: severe Psychotic features: with psychotic features
[2016-11-02] MEDS: PALIPERIDONE 3 MG TABCR PO SCH (21:27)
[2016-11-02] MEDS: DIVALPROEX 500 MG EXTENDED RELEASE TAB PO SCH (21:27)
[2016-11-03 06:26] VITALS: BP_SYST 105; BP_SYST 121; BP_DIAS 69; BP_DIAS 77; PULSE 112; PULSE 78; TEMP 36.4
[2016-11-03] MEDS: PROPRANOLOL HCL 10 MG TAB PO SCH ×2 (08:55→22:23)
[2016-11-03] MEDS: OMEGA-3 (PURIFIED FISH OIL) 1 GM CAP PO SCH (08:55)
[2016-11-03] MEDS: MULTIVITAMIN TAB PO SCH (08:56)
[2016-11-03] MEDS: FLUTICASONE PROPIONATE NA SPR 16 GM BTL NAE SCH (08:56)
[2016-11-03] MEDS: LORAZEPAM 1 MG TAB PO SCH ×2 (08:56→22:23)
[2016-11-03] MEDS: CETIRIZINE HCL 10 MG TAB PO SCH (08:56)
--- NOTE | 2016-11-03 12:36 | Psychiatric Progress Notes ---
Progress Note Date of Service Nov 03, 2016. Interval History Jey Zelaya is a 40-year-old gentleman with bipolar type 1 who lives with his mother in [place], [place], and was admitted to our unit on a 302 involuntary commitment on 10/27/16 with an acute manic episode. He is on a 303 commitment as of 11/01/2016. Chief Complaint "Better than I thought it would go, I guess I was really mad at you and my mom, I understand why you think I need to be here...". Subjective Patient was seen & assessed interval progress reviewed with nursing. Staff report he is improving, attended and participated in most groups yesterday, and was less irritable. He wanted staff to help him call a local motorcycle shop to ask about his motorcycle alone, and talked about wanting to get his firearms back. His mother visited, and told staff that he was irritable with her. He has not yet been able to tolerate a meeting with her, since his outburst 2 days ago when he became aggressive when attempting a family meeting. Today, he has attended all morning groups. He states that his mood is "it changes, when I'm around people it's better, when I'm alone, want to have myself sufficiencies, have it my way..." He states that he misses being able to have alone time and go outside to smoke. He denies thoughts of harming himself or anyone else. He continues to have some sedation from medications, but has been able to stay up throughout the day and participate in all programming. He thinks his sleep is improved, and notes that he was in the process of getting a CPAP machine for a new diagnosis of obstructive sleep apnea. He says he still gets angry at his mother when she comes to visit, but also recognizes that "I love her, couldn't imagine my life without her." He makes a joke at the end of the session about seeing a single female psychiatrist for follow-up. Sleep Information Total Hours of Sleep: 7.25 Meal Information Percent of Breakfast Consumed: 100 Percent of Lunch Consumed: 100 Percent of Dinner Consumed: 100 Mental Status Exam During interview pt is: alert and oriented, cooperative Appearance: appropriately dressed, other (obese) Eye contact is: good Motor behavior is: steady gait & station, psychomotor retardation Speech: other (slow) Affect: flat (tired appearing) Mood is: other ("it changes") Thought process: goal directed Thought content: delusions (grandiosity) Suicidal thought are: denied Homicidal thoughts are: denied Hallucinations: denies auditory, denies visual Cognition: other (cognition remains impaired, but is improving) Intelligence estimated to be: average Insight: severely impaired Judgement: severely impaired Summary of Past History Records from [facility] reviewed from visit with LADARIUS Lopez, on 2016. He presented for follow-up with his mother, reported he had recently dyed his hair, and stated he wanted it to be Silver so he would look older and be respected more. He stated his [id number] had threatened him with a gun because the patient was telling him he cared about him. He talked about feeling that God was "leaving him in the dark" and he was tired of waiting on God. He said he bought a new car, and did not know how he would pay for it, but was dressed up because he planned to go to the [employer] after his appointment in order to buy another car and motorcycle. He said he had not been taking his medications because he felt "clearer without them." He talked about having "more direct contact with God, not really thinking about things, just going with being at the speed of light contact with God." He said he had only slept 1 -2 hours in the past month, and had been sleeping in his car, because it was more comfortable than his bed. His mother said he had been irrational, increasingly irritable, but plane tickets to [place], was spending excessive amounts of money, not sleeping, and refusing to take his medications. She was very concerned about him, and wanted him to be hospitalized. 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 He left the office and anger, and left his mother there was no transportation. She was encouraged to contact [facility]. Impression Warner and irritability continue to improve now that he's back on meds. He continues to have sedation, but it is improving, and he has been able to stay awake during the day and attend and participate in groups. He has been too irritable to meet with his mother to discuss his treatment post discharge, but hopefully will be able to tolerate that meeting within the next several days. Plan (1) Bipolar disorder 10/28/16 - depakote retarted at 1500mg/bedtime - invega 6mg oral started at bedtime, last trinza shot was end of September 2016 date needs to be confirmed - continue ativan 1mg po bid - continue 302 involuntary status 10/29/16 - continue plan as above, although goal is not to sedate him the fact that he is starting to feel tired is a good prognostic sign that he is starting to respond to depakote - fasting blood glucose 10/29/16 WNL at 94; fasting lipids WNL 10/30/16 - patient appears to be responding to medications, will monitor his somnolence and appreciate a few days of somnolence for recovery period from warner, VPA level is ordered for this week 10/31/16 - Continue Depakote and check trough level tomorrow. Continue oral Invega in addition to Trinza injection. - Continue Ativan for calming effect and acute stabilization only, will taper off prior to discharge due to substance abuse history. - Patient states he is willing to sign a release for his outpatient providers today, and we will coordinate care. - Patient agrees to sign a release for his mother, and will schedule a family meeting. - File for 303 commitment. - Submit mandated DMV reporting form due to unsafe driving while manic, putting himself and others at risk. 11/01/16 - 303 commitment granted. - Depakote trough level 89. - Continue Haldol 10 mg and Ativan 1 mg as needed for agitation. - Continue medically necessary private room for frequent episodes of agitation and aggression. The patient has been informed that is expected he will remain in good behavioral control, and that he can be held accountable if he causes property damage or harms another person here on the unit. 11/02 - Continue current meds - Continue MNPR for another 24 hrs but if in behavioral control, may be able to DC. 11/03 - Has been in better behavioral control, so will try discontinuing private room. (2) Hypertension 10/28/16 - continue propranolol 10mg po bid 10/31 - Pressure well controlled here. Continue to monitor. (3) Obesity 10/28/16 - encouraged physical activity and watching diet 10/29/16 and 10/30/16 - agree with above - if weight gain continues could consider medications such as metformin to offset the gain of his psychotropic medications Discharge / Aftercare Planning Psychiatrist: Name: Martina Brown PA at [facility] Therapist: Name: Fernando Hale Field Support Engineer: Name: Santino Holland Visit Code E&M Code: 08196 Risk Factors Assessment Male: Yes : Yes /single/: Yes Higher / Fall in social status: No Access to guns: No Health problems: Yes Mental Health Diagnoses: Yes Substance use disorders: No Previous psychiatric stay: Yes Protective Factors Assessment Gnosticism beliefs: Yes : No Responsible for young children: No Stable relationships: Yes Supportive family: Yes Good rapport with provider: Yes Data Vital Signs Last 24 Hrs: Date Time Temp Pulse Resp B/P Pulse Ox O2 Delivery O2 Flow Rate FiO2 11/03/16 06:26 36.4 78 18 105/69 112 121/77 Problem Qualifiers (1) Bipolar disorder: Current bipolar episode type: manic Current episode severity: severe Psychotic features: with psychotic features
[2016-11-03] MEDS: DIVALPROEX 500 MG EXTENDED RELEASE TAB PO SCH (22:24)
[2016-11-03] MEDS: PALIPERIDONE 3 MG TABCR PO SCH (22:24)
[2016-11-04] MEDS: OMEGA-3 (PURIFIED FISH OIL) 1 GM CAP PO SCH (08:21)
[2016-11-04] MEDS: CETIRIZINE HCL 10 MG TAB PO SCH (08:21)
[2016-11-04] MEDS: LORAZEPAM 1 MG TAB PO SCH (08:21)
[2016-11-04] MEDS: PROPRANOLOL HCL 10 MG TAB PO SCH ×2 (08:21→21:04)
[2016-11-04] MEDS: FLUTICASONE PROPIONATE NA SPR 16 GM BTL NAE SCH (08:21)
[2016-11-04] MEDS: MULTIVITAMIN TAB PO SCH (08:21)
[2016-11-04 08:31] VITALS: BP_SYST 113; BP_SYST 129; BP_DIAS 74; BP_DIAS 82; PULSE 80; PULSE 86; TEMP 36.6
--- NOTE | 2016-11-04 10:38 | Psychiatric Progress Notes ---
Progress Note Date of Service Nov 04, 2016. Interval History Jey Zelaya is a 40-year-old gentleman with bipolar type 1 who lives with his mother in [place], [place], and was admitted to our unit on a 302 involuntary commitment on 10/27/16 with an acute manic episode. He is on a 303 commitment as of 11/01/2016. Chief Complaint "When can I go home?". Subjective Patient was seen & assessed interval progress reviewed with Treatment Team. Met with the patient and his mother. Mother had extensive questions about his meds, worrying that his instability started when he began on Trinza. Explained med choices, with rational. Jey feels that all of his behaviors should not be seen in the context of his bipolar disorder, "Maybe I'm just having a mid life crisis.". 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 He denies racing thoughts or high energy, but continues with disturbed sleep, getting up multiple times per night. At his own suggestion, will switch ativan to klonopin for longer action. He was initially irritable with his mother and her view of his condition, but was able to relax and even joke as the meeting progressed. He has appeared to be sedated in groups, with nodding head. Review of Systems Constitutional: + fatigue ENT: No dental problems, No hearing loss, No nasal symptoms, No problem reported, No sore throat, No tinnitus, No trouble swallowing, No unusual epistaxis Respiratory: No cough, No dyspnea at rest, No dyspnea on exertion, No hemoptysis, No problem reported, No shortness of breath, No sputum, No wheezing Cardiovascular: No PND, No chest pain, No claudication, No edema, No orthopnea , No palpitations, No problem reported Abdomen: No GI bleeding, No constipation, No diarrhea, No nausea, No pain, No problem reported, No vomiting Musculoskeletal: No calf pain, No joint pain, No muscle pain, No problem reported, No swelling Neurologic: No balance problems, No memory loss, No numbness/tingling, No paralysis, No problem reported, No vertigo, No weakness Psychiatric: + problem reported (feels sedated, denies racing thoughts. Is less irritable, but continues to lack insight) Integumentary: No bleeding, No color change, No itch, No new/changing skin lesions, No problem reported, No rash Sleep Information Total Hours of Sleep: 6.75 Meal Information Percent of Breakfast Consumed: 100 Percent of Lunch Consumed: 100 Percent of Dinner Consumed: 100 Mental Status Exam During interview pt is: alert and oriented, cooperative Appearance: appropriately dressed, other (obese) Eye contact is: fair Motor behavior is: steady gait & station, psychomotor retardation Speech: normal in rate, rhythm & volume Affect: blunted Mood is: other ("Fine") Thought process: goal directed Thought content: delusions (grandiosity) Suicidal thought are: denied Homicidal thoughts are: denied Hallucinations: denies auditory, denies visual Cognition: other (cognition remains impaired, but is improving) Intelligence estimated to be: average Insight: impaired Judgement: impaired Summary of Past History Records from [facility] reviewed from visit with LADARIUS Lopez, on 2016. He presented for follow-up with his mother, reported he had recently dyed his hair, and stated he wanted it to be Silver so he would look older and be respected more. He stated his [id number] had threatened him with a gun because the patient was telling him he cared about him. He talked about feeling that God was "leaving him in the dark" and he was tired of waiting on God. He said he bought a new car, and did not know how he would pay for it, but was dressed up because he planned to go to the bank after his appointment in order to buy another car and motorcycle. He said he had not been taking his medications because he felt "clearer without them." He talked about having "more direct contact with God, not really thinking about things, just going with being at the speed of light contact with God." He said he had only slept 1 -2 hours in the past month, and had been sleeping in his car, because it was more comfortable than his bed. His mother said he had been irrational, increasingly irritable, but plane tickets to [place], was spending excessive amounts of money, not sleeping, and refusing to take his medications. She was very concerned about him, and wanted him to be hospitalized. 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 He left the office and anger, and left his mother there was no transportation. She was encouraged to contact [facility] crisis. Impression Slow progress with less irritability, but impaired sleep remains. Will DC ativan and order Klonopin 1 mg at HS only. Ideally would not like to send him home on benzos due to history of substance abuse in the past. Will continue other meds. Patient still lacks insight into this episode and feels he is able to go home. Will see what happens when we DC daytime BZD and he is less sedated. He remains on a 303 Plan (1) Bipolar disorder 10/28/16 - depakote retarted at 1500mg/bedtime - invega 6mg oral started at bedtime, last trinza shot was end of September 2016 date needs to be confirmed - continue ativan 1mg po bid - continue 302 involuntary status 10/29/16 - continue plan as above, although goal is not to sedate him the fact that he is starting to feel tired is a good prognostic sign that he is starting to respond to depakote - fasting blood glucose 10/29/16 WNL at 94; fasting lipids WNL 10/30/16 - patient appears to be responding to medications, will monitor his somnolence and appreciate a few days of somnolence for recovery period from warner, VPA level is ordered for this week 10/31/16 - Continue Depakote and check trough level tomorrow. Continue oral Invega in addition to Trinza injection. - Continue Ativan for calming effect and acute stabilization only, will taper off prior to discharge due to substance abuse history. - Patient states he is willing to sign a release for his outpatient providers today, and we will coordinate care. - Patient agrees to sign a release for his mother, and will schedule a family meeting. - File for 303 commitment. - Submit mandated DMV reporting form due to unsafe driving while manic, putting himself and others at risk. 11/01/16 - 303 commitment granted. - Depakote trough level 89. - Continue Haldol 10 mg and Ativan 1 mg as needed for agitation. - Continue medically necessary private room for frequent episodes of agitation and aggression. The patient has been informed that is expected he will remain in good behavioral control, and that he can be held accountable if he causes property damage or harms another person here on the unit. 11/02 - Continue current meds - Continue MNPR for another 24 hrs but if in behavioral control, may be able to DC. 11/03 - Has been in better behavioral control, so will try discontinuing private room. 11/04 - DC ativan. Start Klonopin 1 mg. HS (2) Hypertension 10/28/16 - continue propranolol 10mg po bid 10/31 - Pressure well controlled here. Continue to monitor. (3) Obesity 10/28/16 - encouraged physical activity and watching diet 10/29/16 and 10/30/16 - agree with above - if weight gain continues could consider medications such as metformin to offset the gain of his psychotropic medications Discharge / Aftercare Planning Primary Care Physician: Name: Dr Zamudio Psychiatrist: Name: . Therapist: Name: Fernando Hale Aquacultural Worker Supervisor: Name: Santino Holland [facility] Visit Code E&M Code: 89876 Risk Factors Assessment Male: Yes : Yes /single/: Yes Higher / Fall in social status: No Access to guns: No Health problems: Yes Mental Health Diagnoses: Yes Substance use disorders: No Previous psychiatric stay: Yes Protective Factors Assessment Yazidi beliefs: Yes : No Responsible for young children: No Stable relationships: Yes Supportive family: Yes Good rapport with provider: Yes Data Vital Signs Last 24 Hrs: Date Time Temp Pulse Resp B/P Pulse Ox O2 Delivery O2 Flow Rate FiO2 11/04/16 08:31 36.6 80 16 129/82 86 113/74 Meds Administered Last 24 Hrs: Current Inpatient Medications Medications (Trade) Dose Ordered Sig/Ingrid Route Start Time Stop Time Status Last Admin Dose Admin Acetaminophen (Tylenol Tab) 650 mg Q4H PRN PO 10/27/16 19:15 11/26/16 19:14 Bismuth Subsalicylate (Kaopectate Liqd) 15 ml PRN PRN PO 10/27/16 19:15 11/26/16 19:14 Al Hydroxide/Mg Hydroxide (Maalox Susp) 30 ml Q4H PRN PO 10/27/16 19:15 11/26/16 19:14 Magnesium Hydroxide (Milk Of Magnesia Susp) 30 ml DAILY PRN PO 10/27/16 19:15 11/26/16 19:14 Sodium Chloride ([place] Nasal [place]) PRN PRN NA 10/27/16 19:15 11/26/16 19:14 Hydroxyzine HCl (Vistaril Tab) 50 mg HSZ PRN PO 10/27/16 19:15 11/26/16 19:14 Hydroxyzine HCl (Vistaril Tab) 25 mg Q4H PRN PO 10/27/16 19:15 11/26/16 19:14 Cetirizine HCl (zyrTEC TAB) 10 mg QAM PO 10/28/16 09:00 11/27/16 08:59 11/04/16 08:21 10 MG Divalproex Sodium (Depakote Extended Rel Tab) 1,500 mg HS PO 10/27/16 21:00 11/26/16 20:59 11/03/16 22:24 1,500 MG Fish Oil ([place]-3 (Purified Fish Oil) Cap) 1 gm DAILY PO 10/28/16 09:00 11/27/16 08:59 11/04/16 08:21 1 GM Fluticasone Propionate (Flonase Nasal [place]) 2 sprays DAILY EDU 10/28/16 09:00 11/27/16 08:59 11/04/16 08:21 2 SPRAYS Lorazepam (Ativan Tab) 1 mg BID PO 10/27/16 21:00 11/26/16 20:59 11/04/16 08:21 1 MG Multivitamins (Multivitamin Tab) 1 tab DAILY PO 10/28/16 09:00 11/27/16 08:59 11/04/16 08:21 1 TAB Propranolol HCl (Inderal Tab) 10 mg BID PO 10/27/16 21:00 11/26/16 20:59 11/04/16 08:21 10 MG Paliperidone (Invega) 6 mg HS PO 10/27/16 21:00 11/26/16 20:59 11/03/16 22:24 6 MG Haloperidol (Haldol Tab) 10 mg Q6H PRN PO 10/27/16 19:15 11/26/16 19:14 11/01/16 10:03 10 MG Lorazepam (Ativan Tab) 1 mg Q4H PRN PO 10/27/16 19:15 11/26/16 19:14 11/01/16 10:03 1 MG Lab Results Last 24 Hrs: 10/27/16 12:39 Red Blood Count 4.34, Mean Corpuscular Volume 94.0, Mean Corpuscular Hemoglobin 34.6, Mean Corpuscular Hemoglobin Concent 36.8, Mean Platelet Volume 9.5, Neutrophils (%) (Auto) 52.8, Lymphocytes (%) (Auto) 40.0, Monocytes (%) (Auto) 5.8, Eosinophils (%) (Auto) 1.1, Basophils (%) (Auto) 0.3, Neutrophils # (Auto) 3.30, Lymphocytes # (Auto) 2.50, Monocytes # (Auto) 0.36, Eosinophils # (Auto) 0.07, Basophils # (Auto) 0.02 10/27/16 12:39 Test 10/27/16 12:10 10/27/16 12:39 10/29/16 07:28 11/01/16 09:51 Urine Opiates Screen NEG (NEG) Urine Methadone, Qualitative NEG (NEG) Urine Barbiturates NEG (NEG) Urine Phencyclidine (PCP) Level NEG (NEG) Ur Amphetamine/Methamphetamine NEG (NEG) MDMA (Ecstasy) Screen NEG (NEG) Urine Benzodiazepines Screen NEG (NEG) Urine Cocaine Metabolite NEG (NEG) Urine Marijuana (THC) NEG (NEG) White Blood Count 6.25 K/uL (4.8-10.8) Red Blood Count 4.34 M/uL (4.7-6.1) Hemoglobin 15.0 g/dL (14.0-18.0) Hematocrit 40.8 % (42-52) Mean Corpuscular Volume 94.0 fL (80-100) Mean Corpuscular Hemoglobin 34.6 pg (25-34) Mean Corpuscular Hemoglobin Concent 36.8 g/dl (32-36) Platelet Count 178 K/uL (130-400) Mean Platelet Volume 9.5 fL (7.4-10.4) Neutrophils (%) (Auto) 52.8 % Lymphocytes (%) (Auto) 40.0 % Monocytes (%) (Auto) 5.8 % Eosinophils (%) (Auto) 1.1 % Basophils (%) (Auto) 0.3 % Neutrophils # (Auto) 3.30 K/uL (1.4-6.5) Lymphocytes # (Auto) 2.50 K/uL (1.2-3.4) Monocytes # (Auto) 0.36 K/uL (0.11-0.59) Eosinophils # (Auto) 0.07 K/uL (0-0.5) Basophils # (Auto) 0.02 K/uL (0-0.2) RDW Standard Deviation 44.5 fL (36.4-46.3) RDW Coefficient of Variation 12.9 % (11.5-14.5) Immature Granulocyte % (Auto) 0.0 % Immature Granulocyte # (Auto) 0.00 K/uL (0.00-0.02) Anion Gap 7.0 mmol/L (3-11) Est Creatinine Clear Calc Drug Dose 132.3 ml/min Estimated GFR () 111.5 Estimated GFR (Non- 96.2 BUN/Creatinine Ratio 11.9 (10-20) Calcium Level 9.2 mg/dl (8.5-10.1) Total Bilirubin 0.6 mg/dl (0.2-1) Direct Bilirubin 0.2 mg/dl (0-0.2) Aspartate Amino Transf (AST/SGOT) 27 U/L (15-37) Alanine Aminotransferase (ALT/SGPT) 49 U/L (12-78) Alkaline Phosphatase 53 U/L (45-117) Total Protein 7.9 gm/dl (6.4-8.2) Albumin 4.3 gm/dl (3.4-5.0) Lipase 246 U/L (73-393) Thyroid Stimulating Hormone (TSH) 1.190 uIu/ml (0.300-4.500) Salicylates Level 3.8 mg/dl (2.8-20) Acetaminophen Level < 2 ug/ml (10-30) Ethyl Alcohol mg/dL < 3.0 mg/dl (0-3) Fasting Glucose 94 mg/dl (70-99) Triglycerides Level 74 mg/dl (0-150) Cholesterol Level 131 mg/dl (0-200) HDL Cholesterol 31 mg/dl LDL Cholesterol, Calculated 85 mg/dl VLDL Cholesterol, Calculated 15 mg/dl Cholesterol/HDL Ratio 4.2 Valproic Acid (Depakene) Level 89 mcg/ml (50-100) Problem Qualifiers (1) Bipolar disorder: Current bipolar episode type: manic Current episode severity: severe Psychotic features: with psychotic features
[2016-11-04] MEDS: DIVALPROEX 500 MG EXTENDED RELEASE TAB PO SCH (21:04)
[2016-11-04] MEDS: CLONAZEPAM 1 MG TAB PO SCH (21:04)
[2016-11-04] MEDS: PALIPERIDONE 3 MG TABCR PO SCH (21:05)
[2016-11-05 07:04] VITALS: BP_SYST 117; BP_DIAS 73; BP_DIAS 75; PULSE 101; PULSE 64; TEMP 36.5
[2016-11-05] MEDS: PROPRANOLOL HCL 10 MG TAB PO SCH ×2 (08:30→20:59)
[2016-11-05] MEDS: OMEGA-3 (PURIFIED FISH OIL) 1 GM CAP PO SCH (08:30)
[2016-11-05] MEDS: CETIRIZINE HCL 10 MG TAB PO SCH (08:30)
[2016-11-05] MEDS: MULTIVITAMIN TAB PO SCH (08:30)
[2016-11-05] MEDS: FLUTICASONE PROPIONATE NA SPR 16 GM BTL NAE SCH (08:30)
--- NOTE | 2016-11-05 10:46 | Psychiatric Progress Notes ---
Progress Note Date of Service Nov 05, 2016. Interval History Jey Zelaya is a 40-year-old gentleman with bipolar type 1 who lives with his mother in [place], [place], and was admitted to our unit on a 302 involuntary commitment on 10/27/16 with an acute manic episode. He is on a 303 commitment as of 11/01/2016. Chief Complaint "I'm striving to be Mendel like". Subjective Patient was seen & assessed interval progress reviewed with Treatment Team. Per staff, patient remains on elopement precautions. He is on a 303. He described his mood yesterday as a 7 out of 10 and felt blessed. Has apologized for some of his prior behaviors here on the unit. On interview this morning, patient expresses strong desire for discharge from hospital and does not perceive that he needs to be here. He denies that his recent behaviors were dangerous in any way. Does state that his symptoms seem to "fit the bill" for bipolar diagnosis however he seems to be somewhat ambivalent about need for treatment. He denies concerns regarding his poor sleep and tells me that he typically only needs 3 hours or so of sleep overnight. He denies feeling excessively sedated this morning or unsteady on his feet with clonazepam at at bedtime last evening. His thoughts quickly drifts to yazidism topics. He reports he has been reading his Bible and attempting to be Mendel like and thanks God for his abilities. He becomes briefly agitated with widening eyes and jabbing finger and tells me "I said I'm trying to be Mendel like, not that I think I'm Mendel!" Review of Systems Denies dizziness or falls Sleep Information Total Hours of Sleep: 7.50 Meal Information Percent of Breakfast Consumed: 100 Percent of Lunch Consumed: 100 Percent of Dinner Consumed: 100 Mental Status Exam During interview pt is: alert and oriented, cooperative Appearance: appropriately dressed, disheveled, other (obese) Eye contact is: good Motor behavior is: steady gait & station, psychomotor retardation Speech: normal in rate, rhythm & volume Affect: blunted (but briefly abruptly angry appearing) Mood is: other ("normal") Thought process: goal directed Thought content: delusions (grandiosity yazidism themes ) Suicidal thought are: denied Homicidal thoughts are: denied Hallucinations: denies auditory, denies visual Cognition: other (cognition remains impaired, but is improving) Intelligence estimated to be: average Insight: impaired Judgement: impaired Summary of Past History Records from [facility] reviewed from visit with LADARIUS Lopez, on 2016. He presented for follow-up with his mother, reported he had recently dyed his hair, and stated he wanted it to be Silver so he would look older and be respected more. He stated his [id number]-aid had threatened him with a gun because the patient was telling him he cared about him. He talked about feeling that God was "leaving him in the dark" and he was tired of waiting on God. He said he bought a new car, and did not know how he would pay for it, but was dressed up because he planned to go to the bank after his appointment in order to buy another car and motorcycle. He said he had not been taking his medications because he felt "clearer without them." He talked about having "more direct contact with God, not really thinking about things, just going with being at the speed of light contact with God." He said he had only slept 1 -2 hours in the past month, and had been sleeping in his car, because it was more comfortable than his bed. His mother said he had been irrational, increasingly irritable, but plane tickets to [place], was spending excessive amounts of money, not sleeping, and refusing to take his medications. She was very concerned about him, and wanted him to be hospitalized. 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 He left the office and anger, and left his mother there was no transportation. She was encouraged to contact [facility]. Impression Slow progress with less irritability, but impaired sleep remains. Will DC ativan and order Klonopin 1 mg at HS only. Ideally would not like to send him home on benzos due to history of substance abuse in the past. Will continue other meds. Patient still lacks insight into this episode and feels he is able to go home. Will see what happens when we DC daytime BZD and he is less sedated. He remains on a 303 Plan (1) Bipolar disorder 10/28/16 - depakote retarted at 1500mg/bedtime - invega 6mg oral started at bedtime, last trinza shot was end of September 2016 date needs to be confirmed - continue ativan 1mg po bid - continue 302 involuntary status 10/29/16 - continue plan as above, although goal is not to sedate him the fact that he is starting to feel tired is a good prognostic sign that he is starting to respond to depakote - fasting blood glucose 10/29/16 WNL at 94; fasting lipids WNL 10/30/16 - patient appears to be responding to medications, will monitor his somnolence and appreciate a few days of somnolence for recovery period from warner, VPA level is ordered for this week 10/31/16 - Continue Depakote and check trough level tomorrow. Continue oral Invega in addition to Trinza injection. - Continue Ativan for calming effect and acute stabilization only, will taper off prior to discharge due to substance abuse history. - Patient states he is willing to sign a release for his outpatient providers today, and we will coordinate care. - Patient agrees to sign a release for his mother, and will schedule a family meeting. - File for 303 commitment. - Submit mandated DMV reporting form due to unsafe driving while manic, putting himself and others at risk. 11/01/16 - 303 commitment granted. - Depakote trough level 89. - Continue Haldol 10 mg and Ativan 1 mg as needed for agitation. - Continue medically necessary private room for frequent episodes of agitation and aggression. The patient has been informed that is expected he will remain in good behavioral control, and that he can be held accountable if he causes property damage or harms another person here on the unit. 11/02 - Continue current meds - Continue MNPR for another 24 hrs but if in behavioral control, may be able to DC. 11/03 - Has been in better behavioral control, so will try discontinuing private room. 11/04 - DC ativan. Start Klonopin 1 mg. HS 11/05 - Warner sounds to be improving however thoughts remain grandiose and insight limited (2) Hypertension 10/28/16 - continue propranolol 10mg po bid 10/31 - Pressure well controlled here. Continue to monitor. (3) Obesity 10/28/16 - encouraged physical activity and watching diet 10/29/16 and 10/30/16 - agree with above - if weight gain continues could consider medications such as metformin to offset the gain of his psychotropic medications Discharge / Aftercare Planning Primary Care Physician: Name: Dr Zamudio Psychiatrist: Name: Darnell Mazariegos Therapist: Name: Fernando Hale Date of Appointment: Nov 14, 2016 Time of Appointment: 3:00pm Wheelabrator Operator: Name: Santino Holland CARROL Visit Code E&M Code: 87591 Risk Factors Assessment Male: Yes : Yes /single/: Yes Higher / Fall in social status: No Access to guns: No Health problems: Yes Mental Health Diagnoses: Yes Substance use disorders: No Previous psychiatric stay: Yes Protective Factors Assessment Bahai beliefs: Yes : No Responsible for young children: No Stable relationships: Yes Supportive family: Yes Good rapport with provider: Yes Data Vital Signs Last 24 Hrs: Date Time Temp Pulse Resp B/P Pulse Ox O2 Delivery O2 Flow Rate FiO2 11/05/16 07:04 36.5 64 16 117/75 101 117/73 Meds Administered Last 24 Hrs: Meds Administered (Past 24Hrs) Medications (Trade) Dose Ordered Sig/Ingrid Route Start Time Stop Time Status Last Admin Dose Admin Clonazepam (Klonopin Tab) 1 mg HS PO 11/04/16 22:00 12/04/16 21:59 11/04/16 21:04 1 MG Problem Qualifiers (1) Bipolar disorder: Current bipolar episode type: manic Current episode severity: severe Psychotic features: with psychotic features
[2016-11-05] MEDS: DIVALPROEX 500 MG EXTENDED RELEASE TAB PO SCH (20:59)
[2016-11-05] MEDS: PALIPERIDONE 3 MG TABCR PO SCH (20:59)
[2016-11-05] MEDS: CLONAZEPAM 1 MG TAB PO SCH (20:59)
[2016-11-06 06:55] VITALS: BP_SYST 101; BP_SYST 114; BP_DIAS 63; BP_DIAS 75; PULSE 108; PULSE 78; TEMP 36.3
[2016-11-06] MEDS: PROPRANOLOL HCL 10 MG TAB PO SCH ×2 (08:24→21:07)
[2016-11-06] MEDS: FLUTICASONE PROPIONATE NA SPR 16 GM BTL NAE SCH (08:24)
[2016-11-06] MEDS: CETIRIZINE HCL 10 MG TAB PO SCH (08:25)
[2016-11-06] MEDS: OMEGA-3 (PURIFIED FISH OIL) 1 GM CAP PO SCH (08:25)
[2016-11-06] MEDS: MULTIVITAMIN TAB PO SCH (08:25)
--- NOTE | 2016-11-06 15:10 | Psychiatric Progress Notes ---
Progress Note Date of Service Nov 06, 2016. Interval History Jey Zelaya is a 40-year-old gentleman with bipolar type 1 who lives with his mother in [place], [place], and was admitted to our unit on a 302 involuntary commitment on 10/27/16 with an acute manic episode. He is on a 303 commitment as of 11/01/2016. Chief Complaint "I'm okay". Subjective Patient was seen & assessed interval progress reviewed with Treatment Team. Per staff, patient has been going to groups. Irritable with mother yesterday but not with staff or peers. Continues to appear slowly less sedated and less grandiose. On interview, patient describes feeling okay. He acknowledges some irritability about his hospitalization and faults his mother for preventing him from working to cover his expenses in the last month. He does express perception that things seem to be going a little better here and he denies acute concerns this morning. Review of Systems Drowsiness persists but improving Sleep Information Total Hours of Sleep: 8.25 Meal Information Percent of Breakfast Consumed: 90 Percent of Lunch Consumed: 85 Percent of Dinner Consumed: 98 Mental Status Exam During interview pt is: alert and oriented, cooperative Appearance: appropriately dressed, disheveled, other (obese) Eye contact is: good Motor behavior is: steady gait & station, psychomotor retardation Speech: normal in rate, rhythm & volume Affect: blunted Mood is: other ("ok") Thought process: goal directed Thought content: delusions (grandiosity restorationism themes - less evident) Suicidal thought are: denied Homicidal thoughts are: denied Hallucinations: denies auditory, denies visual Cognition: other (cognition remains impaired, but is improving) Intelligence estimated to be: average Insight: impaired Judgement: impaired Summary of Past History Records from [facility] reviewed from visit with LADARIUS Lopez, on 2016. He presented for follow-up with his mother, reported he had recently dyed his hair, and stated he wanted it to be Silver so he would look older and be respected more. He stated his [id number] had threatened him with a gun because the patient was telling him he cared about him. He talked about feeling that God was "leaving him in the dark" and he was tired of waiting on God. He said he bought a new car, and did not know how he would pay for it, but was dressed up because he planned to go to the bank after his appointment in order to buy another car and motorcycle. He said he had not been taking his medications because he felt "clearer without them." He talked about having "more direct contact with God, not really thinking about things, just going with being at the speed of light contact with God." He said he had only slept 1 -2 hours in the past month, and had been sleeping in his car, because it was more comfortable than his bed. His mother said he had been irrational, increasingly irritable, but plane tickets to [place], was spending excessive amounts of money, not sleeping, and refusing to take his medications. She was very concerned about him, and wanted him to be hospitalized. 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 He left the office and anger, and left his mother there was no transportation. She was encouraged to contact [facility]. Impression Slow progress with less irritability, but impaired sleep remains. Will DC ativan and order Klonopin 1 mg at HS only. Ideally would not like to send him home on benzos due to history of substance abuse in the past. Will continue other meds. Patient still lacks insight into this episode and feels he is able to go home. Will see what happens when we DC daytime BZD and he is less sedated. He remains on a 303 Plan (1) Bipolar disorder 10/28/16 - depakote retarted at 1500mg/bedtime - invega 6mg oral started at bedtime, last trinza shot was end of September 2016 date needs to be confirmed - continue ativan 1mg po bid - continue 302 involuntary status 10/29/16 - continue plan as above, although goal is not to sedate him the fact that he is starting to feel tired is a good prognostic sign that he is starting to respond to depakote - fasting blood glucose 10/29/16 WNL at 94; fasting lipids WNL 10/30/16 - patient appears to be responding to medications, will monitor his somnolence and appreciate a few days of somnolence for recovery period from warner, VPA level is ordered for this week 10/31/16 - Continue Depakote and check trough level tomorrow. Continue oral Invega in addition to Trinza injection. - Continue Ativan for calming effect and acute stabilization only, will taper off prior to discharge due to substance abuse history. - Patient states he is willing to sign a release for his outpatient providers today, and we will coordinate care. - Patient agrees to sign a release for his mother, and will schedule a family meeting. - File for 303 commitment. - Submit mandated DMV reporting form due to unsafe driving while manic, putting himself and others at risk. 11/01/16 - 303 commitment granted. - Depakote trough level 89. - Continue Haldol 10 mg and Ativan 1 mg as needed for agitation. - Continue medically necessary private room for frequent episodes of agitation and aggression. The patient has been informed that is expected he will remain in good behavioral control, and that he can be held accountable if he causes property damage or harms another person here on the unit. 11/02 - Continue current meds - Continue MNPR for another 24 hrs but if in behavioral control, may be able to DC. 11/03 - Has been in better behavioral control, so will try discontinuing private room. 11/04 - DC ativan. Start Klonopin 1 mg. HS 11/05 - Warner sounds to be improving however thoughts remain grandiose and insight limited 11/06 - Continues to slowly improve. (2) Hypertension 10/28/16 - continue propranolol 10mg po bid 10/31 - Pressure well controlled here. Continue to monitor. (3) Obesity 10/28/16 - encouraged physical activity and watching diet 10/29/16 and 10/30/16 - agree with above - if weight gain continues could consider medications such as metformin to offset the gain of his psychotropic medications Discharge / Aftercare Planning Primary Care Physician: Name: Dr Zamudio Psychiatrist: Name: Darnell Mazariegos Therapist: Name: Fernando Hale Date of Appointment: Nov 14, 2016 Time of Appointment: 3:00pm Manager E Learning: Name: Santino BRANHAM Visit Code E&M Code: 47418 Risk Factors Assessment Male: Yes : Yes /single/: Yes Higher / Fall in social status: No Access to guns: No Health problems: Yes Mental Health Diagnoses: Yes Substance use disorders: No Previous psychiatric stay: Yes Protective Factors Assessment Pentecostal beliefs: Yes : No Responsible for young children: No Stable relationships: Yes Supportive family: Yes Good rapport with provider: Yes Data Vital Signs Last 24 Hrs: Date Time Temp Pulse Resp B/P Pulse Ox O2 Delivery O2 Flow Rate FiO2 11/06/16 06:55 36.3 78 16 101/63 108 114/75 Meds Administered Last 24 Hrs: Meds Administered (Past 24Hrs) Medications (Trade) Dose Ordered Sig/Ingrid Route Start Time Stop Time Status Last Admin Dose Admin Clonazepam (Klonopin Tab) 1 mg HS PO 11/04/16 22:00 12/04/16 21:59 11/05/16 20:59 1 MG Problem Qualifiers (1) Bipolar disorder: Current bipolar episode type: manic Current episode severity: severe Psychotic features: with psychotic features
[2016-11-06] MEDS: PALIPERIDONE 3 MG TABCR PO SCH (21:06)
[2016-11-06] MEDS: CLONAZEPAM 1 MG TAB PO SCH (21:06)
[2016-11-06] MEDS: DIVALPROEX 500 MG EXTENDED RELEASE TAB PO SCH (21:06)
[2016-11-07 07:03] VITALS: BP_SYST 100; BP_SYST 115; BP_DIAS 62; BP_DIAS 75; PULSE 73; PULSE 98; TEMP 36.3
[2016-11-07] MEDS: FLUTICASONE PROPIONATE NA SPR 16 GM BTL NAE SCH (08:31)
[2016-11-07] MEDS: PROPRANOLOL HCL 10 MG TAB PO SCH ×2 (08:31→21:05)
[2016-11-07] MEDS: MULTIVITAMIN TAB PO SCH (08:31)
[2016-11-07] MEDS: OMEGA-3 (PURIFIED FISH OIL) 1 GM CAP PO SCH (08:32)
[2016-11-07] MEDS: CETIRIZINE HCL 10 MG TAB PO SCH (08:32)
--- NOTE | 2016-11-07 11:12 | Psychiatric Progress Notes ---
Progress Note Date of Service Nov 07, 2016. Interval History Jey Zelaya is a 40-year-old gentleman with bipolar type 1 who lives with his mother in [place], [place], and was admitted to our unit on a 302 involuntary commitment on 10/27/16 with an acute manic episode. He is on a 303 commitment as of 11/01/2016. Chief Complaint "My thoughts are fine.". Subjective Patient was seen & assessed interval progress reviewed with Treatment Team. The patient is in bed sleeping when I go to his room. He awakens easily. He says that he does not have any more manic symptoms and denies grandiosity other than to say "I am important to God.". He says that he is eating and sleeping well, and wonders why we haven't discharged him. I reflect that he is still irritable with his mother, but he says "That's just how we are." and doesn't see it as a problem. He denies aud/vis hallucinations. Review of Systems Constitutional: + fatigue ENT: No dental problems, No hearing loss, No nasal symptoms, No problem reported, No sore throat, No tinnitus, No trouble swallowing, No unusual epistaxis Respiratory: No cough, No dyspnea at rest, No dyspnea on exertion, No hemoptysis, No problem reported, No shortness of breath, No sputum, No wheezing Cardiovascular: No PND, No chest pain, No claudication, No edema, No orthopnea , No palpitations, No problem reported Abdomen: No GI bleeding, No constipation, No diarrhea, No nausea, No pain, No problem reported, No vomiting Musculoskeletal: No calf pain, No joint pain, No muscle pain, No problem reported, No swelling Neurologic: No balance problems, No memory loss, No numbness/tingling, No paralysis, No problem reported, No vertigo, No weakness Psychiatric: + problem reported (denies) Integumentary: No bleeding, No color change, No itch, No new/changing skin lesions, No problem reported, No rash Sleep Information Total Hours of Sleep: 7.00 Meal Information Percent of Breakfast Consumed: 100 Percent of Lunch Consumed: 85 Percent of Dinner Consumed: 100 Mental Status Exam During interview pt is: alert and oriented, cooperative Appearance: appropriately dressed, disheveled, other (obese) Eye contact is: good Motor behavior is: steady gait & station, psychomotor retardation Speech: normal in rate, rhythm & volume Affect: blunted Mood is: other ("ok") Thought process: goal directed Suicidal thought are: denied Homicidal thoughts are: denied Hallucinations: denies auditory, denies visual Cognition: other (cognition remains impaired, but is improving) Intelligence estimated to be: average Insight: impaired Judgement: impaired Summary of Past History Records from [facility] reviewed from visit with LADARIUS Lopez, on 2016. He presented for follow-up with his mother, reported he had recently dyed his hair, and stated he wanted it to be Silver so he would look older and be respected more. He stated his [id number] had threatened him with a gun because the patient was telling him he cared about him. He talked about feeling that God was "leaving him in the dark" and he was tired of waiting on God. He said he bought a new car, and did not know how he would pay for it, but was dressed up because he planned to go to the bank after his appointment in order to buy another car and motorcycle. He said he had not been taking his medications because he felt "clearer without them." He talked about having "more direct contact with God, not really thinking about things, just going with being at the speed of light contact with God." He said he had only slept 1 -2 hours in the past month, and had been sleeping in his car, because it was more comfortable than his bed. His mother said he had been irrational, increasingly irritable, but plane tickets to [place], was spending excessive amounts of money, not sleeping, and refusing to take his medications. She was very concerned about him, and wanted him to be hospitalized. 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 He left the office and anger, and left his mother there was no transportation. She was encouraged to contact [facility]. Impression Slow progress with less irritability. His hoahaoism themes persist, but he is a spiritual person at baseline. He has been cooperative with programming, remains focused on discharge. Will continue to work toward insight with Jey, as he does not see the need for meds and is at high risk again for self discontinuation. Plan (1) Bipolar disorder 10/28/16 - depakote retarted at 1500mg/bedtime - invega 6mg oral started at bedtime, last trinza shot was end of September 2016 date needs to be confirmed - continue ativan 1mg po bid - continue 302 involuntary status 10/29/16 - continue plan as above, although goal is not to sedate him the fact that he is starting to feel tired is a good prognostic sign that he is starting to respond to depakote - fasting blood glucose 10/29/16 WNL at 94; fasting lipids WNL 10/30/16 - patient appears to be responding to medications, will monitor his somnolence and appreciate a few days of somnolence for recovery period from warner, VPA level is ordered for this week 10/31/16 - Continue Depakote and check trough level tomorrow. Continue oral Invega in addition to Trinza injection. - Continue Ativan for calming effect and acute stabilization only, will taper off prior to discharge due to substance abuse history. - Patient states he is willing to sign a release for his outpatient providers today, and we will coordinate care. - Patient agrees to sign a release for his mother, and will schedule a family meeting. - File for 303 commitment. - Submit mandated DMV reporting form due to unsafe driving while manic, putting himself and others at risk. 11/01/16 - 303 commitment granted. - Depakote trough level 89. - Continue Haldol 10 mg and Ativan 1 mg as needed for agitation. - Continue medically necessary private room for frequent episodes of agitation and aggression. The patient has been informed that is expected he will remain in good behavioral control, and that he can be held accountable if he causes property damage or harms another person here on the unit. 11/02 - Continue current meds - Continue MNPR for another 24 hrs but if in behavioral control, may be able to DC. 11/03 - Has been in better behavioral control, so will try discontinuing private room. 11/04 - DC ativan. Start Klonopin 1 mg. HS 11/05 - Warner sounds to be improving however thoughts remain grandiose and insight limited 11/06 - Continues to slowly improve. (2) Hypertension 10/28/16 - continue propranolol 10mg po bid 10/31 - Pressure well controlled here. Continue to monitor. (3) Obesity 10/28/16 - encouraged physical activity and watching diet 10/29/16 and 10/30/16 - agree with above - if weight gain continues could consider medications such as metformin to offset the gain of his psychotropic medications Discharge / Aftercare Planning Primary Care Physician: Name: Dr Zamudio Psychiatrist: Name: Darnell Mazariegos Date of Appointment: Nov 16, 2016 Time of Appointment: 2:15pm Therapist: Name: Fernando Hale Date of Appointment: Nov 14, 2016 Time of Appointment: 3:00pm Reservation Agent: Name: Santino Holland CARROL Visit Code E&M Code: 10446 Risk Factors Assessment Male: Yes : Yes /single/: Yes Higher / Fall in social status: No Access to guns: No Health problems: Yes Mental Health Diagnoses: Yes Substance use disorders: No Previous psychiatric stay: Yes Protective Factors Assessment Quaker beliefs: Yes : No Responsible for young children: No Stable relationships: Yes Supportive family: Yes Good rapport with provider: Yes Data Vital Signs Last 24 Hrs: Date Time Temp Pulse Resp B/P Pulse Ox O2 Delivery O2 Flow Rate FiO2 11/07/16 07:03 36.3 73 18 100/62 98 115/75 Meds Administered Last 24 Hrs: Current Inpatient Medications Medications (Trade) Dose Ordered Sig/Ingrid Route Start Time Stop Time Status Last Admin Dose Admin Acetaminophen (Tylenol Tab) 650 mg Q4H PRN PO 10/27/16 19:15 11/26/16 19:14 Bismuth Subsalicylate (Kaopectate Liqd) 15 ml PRN PRN PO 10/27/16 19:15 11/26/16 19:14 Al Hydroxide/Mg Hydroxide (Maalox Susp) 30 ml Q4H PRN PO 10/27/16 19:15 11/26/16 19:14 Magnesium Hydroxide (Milk Of Magnesia Susp) 30 ml DAILY PRN PO 10/27/16 19:15 11/26/16 19:14 Sodium Chloride ([place] Nasal [place]) PRN PRN NA 10/27/16 19:15 11/26/16 19:14 Hydroxyzine HCl (Vistaril Tab) 50 mg HSZ PRN PO 10/27/16 19:15 11/26/16 19:14 Hydroxyzine HCl (Vistaril Tab) 25 mg Q4H PRN PO 10/27/16 19:15 11/26/16 19:14 Cetirizine HCl (zyrTEC TAB) 10 mg QAM PO 10/28/16 09:00 11/27/16 08:59 11/07/16 08:32 10 MG Divalproex Sodium (Depakote Extended Rel Tab) 1,500 mg HS PO 10/27/16 21:00 11/26/16 20:59 11/06/16 21:06 1,500 MG Fish Oil ([place]-3 (Purified Fish Oil) Cap) 1 gm DAILY PO 10/28/16 09:00 11/27/16 08:59 11/07/16 08:32 1 GM Fluticasone Propionate (Flonase Nasal [place]) 2 sprays DAILY EDU 10/28/16 09:00 11/27/16 08:59 11/07/16 08:31 2 SPRAYS Multivitamins (Multivitamin Tab) 1 tab DAILY PO 10/28/16 09:00 11/27/16 08:59 11/07/16 08:31 1 TAB Propranolol HCl (Inderal Tab) 10 mg BID PO 10/27/16 21:00 11/26/16 20:59 11/07/16 08:31 10 MG Paliperidone (Invega) 6 mg HS PO 10/27/16 21:00 11/26/16 20:59 11/06/16 21:06 6 MG Haloperidol (Haldol Tab) 10 mg Q6H PRN PO 10/27/16 19:15 11/26/16 19:14 11/01/16 10:03 10 MG Lorazepam (Ativan Tab) 1 mg Q4H PRN PO 10/27/16 19:15 11/26/16 19:14 11/01/16 10:03 1 MG Clonazepam (Klonopin Tab) 1 mg HS PO 11/04/16 22:00 12/04/16 21:59 11/06/16 21:06 1 MG Lab Results Last 24 Hrs: 10/27/16 12:39 Red Blood Count 4.34, Mean Corpuscular Volume 94.0, Mean Corpuscular Hemoglobin 34.6, Mean Corpuscular Hemoglobin Concent 36.8, Mean Platelet Volume 9.5, Neutrophils (%) (Auto) 52.8, Lymphocytes (%) (Auto) 40.0, Monocytes (%) (Auto) 5.8, Eosinophils (%) (Auto) 1.1, Basophils (%) (Auto) 0.3, Neutrophils # (Auto) 3.30, Lymphocytes # (Auto) 2.50, Monocytes # (Auto) 0.36, Eosinophils # (Auto) 0.07, Basophils # (Auto) 0.02 10/27/16 12:39 Test 10/27/16 12:10 10/27/16 12:39 10/29/16 07:28 11/01/16 09:51 Urine Opiates Screen NEG (NEG) Urine Methadone, Qualitative NEG (NEG) Urine Barbiturates NEG (NEG) Urine Phencyclidine (PCP) Level NEG (NEG) Ur Amphetamine/Methamphetamine NEG (NEG) MDMA (Ecstasy) Screen NEG (NEG) Urine Benzodiazepines Screen NEG (NEG) Urine Cocaine Metabolite NEG (NEG) Urine Marijuana (THC) NEG (NEG) White Blood Count 6.25 K/uL (4.8-10.8) Red Blood Count 4.34 M/uL (4.7-6.1) Hemoglobin 15.0 g/dL (14.0-18.0) Hematocrit 40.8 % (42-52) Mean Corpuscular Volume 94.0 fL (80-100) Mean Corpuscular Hemoglobin 34.6 pg (25-34) Mean Corpuscular Hemoglobin Concent 36.8 g/dl (32-36) Platelet Count 178 K/uL (130-400) Mean Platelet Volume 9.5 fL (7.4-10.4) Neutrophils (%) (Auto) 52.8 % Lymphocytes (%) (Auto) 40.0 % Monocytes (%) (Auto) 5.8 % Eosinophils (%) (Auto) 1.1 % Basophils (%) (Auto) 0.3 % Neutrophils # (Auto) 3.30 K/uL (1.4-6.5) Lymphocytes # (Auto) 2.50 K/uL (1.2-3.4) Monocytes # (Auto) 0.36 K/uL (0.11-0.59) Eosinophils # (Auto) 0.07 K/uL (0-0.5) Basophils # (Auto) 0.02 K/uL (0-0.2) RDW Standard Deviation 44.5 fL (36.4-46.3) RDW Coefficient of Variation 12.9 % (11.5-14.5) Immature Granulocyte % (Auto) 0.0 % Immature Granulocyte # (Auto) 0.00 K/uL (0.00-0.02) Anion Gap 7.0 mmol/L (3-11) Est Creatinine Clear Calc Drug Dose 132.3 ml/min Estimated GFR () 111.5 Estimated GFR (Non- 96.2 BUN/Creatinine Ratio 11.9 (10-20) Calcium Level 9.2 mg/dl (8.5-10.1) Total Bilirubin 0.6 mg/dl (0.2-1) Direct Bilirubin 0.2 mg/dl (0-0.2) Aspartate Amino Transf (AST/SGOT) 27 U/L (15-37) Alanine Aminotransferase (ALT/SGPT) 49 U/L (12-78) Alkaline Phosphatase 53 U/L (45-117) Total Protein 7.9 gm/dl (6.4-8.2) Albumin 4.3 gm/dl (3.4-5.0) Lipase 246 U/L (73-393) Thyroid Stimulating Hormone (TSH) 1.190 uIu/ml (0.300-4.500) Salicylates Level 3.8 mg/dl (2.8-20) Acetaminophen Level < 2 ug/ml (10-30) Ethyl Alcohol mg/dL < 3.0 mg/dl (0-3) Fasting Glucose 94 mg/dl (70-99) Triglycerides Level 74 mg/dl (0-150) Cholesterol Level 131 mg/dl (0-200) HDL Cholesterol 31 mg/dl LDL Cholesterol, Calculated 85 mg/dl VLDL Cholesterol, Calculated 15 mg/dl Cholesterol/HDL Ratio 4.2 Valproic Acid (Depakene) Level 89 mcg/ml (50-100) Problem Qualifiers (1) Bipolar disorder: Current bipolar episode type: manic Current episode severity: severe Psychotic features: with psychotic features
[2016-11-07] MEDS: NICOTINE POLACRILEX 2 MG GUM MT PRN ×2 (15:35→17:37)
[2016-11-07] MEDS: CLONAZEPAM 1 MG TAB PO SCH (21:05)
[2016-11-07] MEDS: PALIPERIDONE 3 MG TABCR PO SCH (21:05)
[2016-11-07] MEDS: DIVALPROEX 500 MG EXTENDED RELEASE TAB PO SCH (21:05)
[2016-11-08 06:58] VITALS: BP_SYST 110; BP_SYST 99; BP_DIAS 62; BP_DIAS 68; PULSE 76; PULSE 99; TEMP 36.4
[2016-11-08] MEDS: FLUTICASONE PROPIONATE NA SPR 16 GM BTL NAE SCH (08:09)
[2016-11-08] MEDS: PROPRANOLOL HCL 10 MG TAB PO SCH ×2 (08:09→21:10)
[2016-11-08] MEDS: MULTIVITAMIN TAB PO SCH (08:10)
[2016-11-08] MEDS: OMEGA-3 (PURIFIED FISH OIL) 1 GM CAP PO SCH (08:10)
[2016-11-08] MEDS: NICOTINE POLACRILEX 2 MG GUM MT PRN ×2 (08:10→11:08)
[2016-11-08] MEDS: CETIRIZINE HCL 10 MG TAB PO SCH (08:10)
--- NOTE | 2016-11-08 08:56 | Psychiatric Progress Notes ---
Progress Note Date of Service Nov 08, 2016. Interval History Jey Zelaya is a 40-year-old gentleman with bipolar type 1 who lives with his mother in [place], [place], and was admitted to our unit on a 302 involuntary commitment on 10/27/16 with an acute manic episode. He is on a 303 commitment as of 11/01/2016. Chief Complaint "OK". Subjective Patient was seen & assessed interval progress reviewed with Treatment Team. The patient is more alert today and out of bed. He says that he feels good and ready to go home. He denies manic symptoms such as racing thoughts or elevated energy. He continues to deny aud/vis hallucinations. He denies SI but remembers back to age 20 when he held a loaded gun to his head as a test to see if God wanted him to kill himself. He says that he wants to get back to work so he can pay his bills, including his new [employer]. He is aware that he is not to drive after discharge until cleared to do so and has his license returned. He reports that he has been incontinent at night which is troubling for him. He thinks that he is too soundly asleep to recognize the need to get up, and has also been drinking a lot of fluids in the evening due to dry mouth. He denies side effects to meds. Review of Systems Constitutional: + fatigue ENT: No dental problems, No hearing loss, No nasal symptoms, No problem reported, No sore throat, No tinnitus, No trouble swallowing, No unusual epistaxis Respiratory: No cough, No dyspnea at rest, No dyspnea on exertion, No hemoptysis, No problem reported, No shortness of breath, No sputum, No wheezing Cardiovascular: No PND, No chest pain, No claudication, No edema, No orthopnea , No palpitations, No problem reported Abdomen: + problem reported (nocturnal incontinence) Musculoskeletal: No calf pain, No joint pain, No muscle pain, No problem reported, No swelling Neurologic: No balance problems, No memory loss, No numbness/tingling, No paralysis, No problem reported, No vertigo, No weakness Psychiatric: No anhedonism, No anxiety, No depression symptoms, No insomnia, No problem reported, No substance abuse Integumentary: No bleeding, No color change, No itch, No new/changing skin lesions, No problem reported, No rash Sleep Information Total Hours of Sleep: 8.25 Meal Information Percent of Breakfast Consumed: 100 Percent of Lunch Consumed: 100 Percent of Dinner Consumed: 100 Mental Status Exam During interview pt is: alert and oriented, cooperative Appearance: appropriately dressed, disheveled, other (obese) Eye contact is: good Motor behavior is: steady gait & station, psychomotor retardation Speech: normal in rate, rhythm & volume Affect: blunted Mood is: other ("ok") Thought process: goal directed Thought content: reality based without delusions Suicidal thought are: denied Homicidal thoughts are: denied Hallucinations: denies auditory, denies visual Cognition: other (cognition remains impaired, but is improving) Intelligence estimated to be: average Insight: impaired Judgement: impaired Summary of Past History Records from [facility] reviewed from visit with LADARIUS Lopez, on 2016. He presented for follow-up with his mother, reported he had recently dyed his hair, and stated he wanted it to be Silver so he would look older and be respected more. He stated his obcumob-cg-hzh had threatened him with a gun because the patient was telling him he cared about him. He talked about feeling that God was "leaving him in the dark" and he was tired of waiting on God. He said he bought a new car, and did not know how he would pay for it, but was dressed up because he planned to go to the bank after his appointment in order to buy another car and motorcycle. He said he had not been taking his medications because he felt "clearer without them." He talked about having "more direct contact with God, not really thinking about things, just going with being at the speed of light contact with God." He said he had only slept 1 -2 hours in the past month, and had been sleeping in his car, because it was more comfortable than his bed. His mother said he had been irrational, increasingly irritable, but plane tickets to [place], was spending excessive amounts of money, not sleeping, and refusing to take his medications. She was very concerned about him, and wanted him to be hospitalized. 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 He left the office and anger, and left his mother there was no transportation. She was encouraged to contact [facility] crisis. Impression Slow progress with less irritability. Is sleeping better and in better daytime control. Having nocturnal incontinence and so will reduce Klonopin to 0.5 mg. HS to see if this helps. Mother wants at least 1 days notice before he comes home, and she will be out of town on 11/09 Plan (1) Bipolar disorder 10/28/16 - depakote retarted at 1500mg/bedtime - invega 6mg oral started at bedtime, last trinza shot was end of September 2016 date needs to be confirmed - continue ativan 1mg po bid - continue 302 involuntary status 10/29/16 - continue plan as above, although goal is not to sedate him the fact that he is starting to feel tired is a good prognostic sign that he is starting to respond to depakote - fasting blood glucose 10/29/16 WNL at 94; fasting lipids WNL 10/30/16 - patient appears to be responding to medications, will monitor his somnolence and appreciate a few days of somnolence for recovery period from warner, VPA level is ordered for this week 10/31/16 - Continue Depakote and check trough level tomorrow. Continue oral Invega in addition to Trinza injection. - Continue Ativan for calming effect and acute stabilization only, will taper off prior to discharge due to substance abuse history. - Patient states he is willing to sign a release for his outpatient providers today, and we will coordinate care. - Patient agrees to sign a release for his mother, and will schedule a family meeting. - File for 303 commitment. - Submit mandated DMV reporting form due to unsafe driving while manic, putting himself and others at risk. 11/01/16 - 303 commitment granted. - Depakote trough level 89. - Continue Haldol 10 mg and Ativan 1 mg as needed for agitation. - Continue medically necessary private room for frequent episodes of agitation and aggression. The patient has been informed that is expected he will remain in good behavioral control, and that he can be held accountable if he causes property damage or harms another person here on the unit. 11/02 - Continue current meds - Continue MNPR for another 24 hrs but if in behavioral control, may be able to DC. 11/03 - Has been in better behavioral control, so will try discontinuing private room. 11/04 - DC ativan. Start Klonopin 1 mg. HS 11/05 - Warner sounds to be improving however thoughts remain grandiose and insight limited 11/06 - Continues to slowly improve. 11/08 - REduce hs klonopin to 0.5 due to nocturnal incontinence (2) Hypertension 10/28/16 - continue propranolol 10mg po bid 10/31 - Pressure well controlled here. Continue to monitor. (3) Obesity 10/28/16 - encouraged physical activity and watching diet 10/29/16 and 10/30/16 - agree with above - if weight gain continues could consider medications such as metformin to offset the gain of his psychotropic medications Discharge / Aftercare Planning Primary Care Physician: Name: Dr Zamudio Psychiatrist: Name: Darnell Mazariegos Date of Appointment: Nov 16, 2016 Time of Appointment: 2:15pm Therapist: Name: Fernando Hale Date of Appointment: Nov 14, 2016 Time of Appointment: 3:00pm Oil Field Laborer: Name: Santino BRANHAM Visit Code E&M Code: 56880 Risk Factors Assessment Male: Yes : Yes /single/: Yes Higher / Fall in social status: No Access to guns: No Health problems: Yes Mental Health Diagnoses: Yes Substance use disorders: No Previous psychiatric stay: Yes Protective Factors Assessment Nondenominational beliefs: Yes : No Responsible for young children: No Stable relationships: Yes Supportive family: Yes Good rapport with provider: Yes Data Vital Signs Last 24 Hrs: Date Time Temp Pulse Resp B/P Pulse Ox O2 Delivery O2 Flow Rate FiO2 11/08/16 06:58 36.4 76 16 99/62 99 110/68 Meds Administered Last 24 Hrs: Meds Administered (Past 24Hrs) Medications (Trade) Dose Ordered Sig/Ingrid Route Start Time Stop Time Status Last Admin Dose Admin Nicotine Polacrilex (Nicorette 2MG Gum) 1 piece Q2H PRN MT 11/07/16 13:45 12/07/16 13:44 11/08/16 08:10 1 PIECE Lab Results Last 24 Hrs: 10/27/16 12:39 Red Blood Count 4.34, Mean Corpuscular Volume 94.0, Mean Corpuscular Hemoglobin 34.6, Mean Corpuscular Hemoglobin Concent 36.8, Mean Platelet Volume 9.5, Neutrophils (%) (Auto) 52.8, Lymphocytes (%) (Auto) 40.0, Monocytes (%) (Auto) 5.8, Eosinophils (%) (Auto) 1.1, Basophils (%) (Auto) 0.3, Neutrophils # (Auto) 3.30, Lymphocytes # (Auto) 2.50, Monocytes # (Auto) 0.36, Eosinophils # (Auto) 0.07, Basophils # (Auto) 0.02 10/27/16 12:39 Test 10/27/16 12:10 10/27/16 12:39 10/29/16 07:28 11/01/16 09:51 Urine Opiates Screen NEG (NEG) Urine Methadone, Qualitative NEG (NEG) Urine Barbiturates NEG (NEG) Urine Phencyclidine (PCP) Level NEG (NEG) Ur Amphetamine/Methamphetamine NEG (NEG) MDMA (Ecstasy) Screen NEG (NEG) Urine Benzodiazepines Screen NEG (NEG) Urine Cocaine Metabolite NEG (NEG) Urine Marijuana (THC) NEG (NEG) White Blood Count 6.25 K/uL (4.8-10.8) Red Blood Count 4.34 M/uL (4.7-6.1) Hemoglobin 15.0 g/dL (14.0-18.0) Hematocrit 40.8 % (42-52) Mean Corpuscular Volume 94.0 fL (80-100) Mean Corpuscular Hemoglobin 34.6 pg (25-34) Mean Corpuscular Hemoglobin Concent 36.8 g/dl (32-36) Platelet Count 178 K/uL (130-400) Mean Platelet Volume 9.5 fL (7.4-10.4) Neutrophils (%) (Auto) 52.8 % Lymphocytes (%) (Auto) 40.0 % Monocytes (%) (Auto) 5.8 % Eosinophils (%) (Auto) 1.1 % Basophils (%) (Auto) 0.3 % Neutrophils # (Auto) 3.30 K/uL (1.4-6.5) Lymphocytes # (Auto) 2.50 K/uL (1.2-3.4) Monocytes # (Auto) 0.36 K/uL (0.11-0.59) Eosinophils # (Auto) 0.07 K/uL (0-0.5) Basophils # (Auto) 0.02 K/uL (0-0.2) RDW Standard Deviation 44.5 fL (36.4-46.3) RDW Coefficient of Variation 12.9 % (11.5-14.5) Immature Granulocyte % (Auto) 0.0 % Immature Granulocyte # (Auto) 0.00 K/uL (0.00-0.02) Anion Gap 7.0 mmol/L (3-11) Est Creatinine Clear Calc Drug Dose 132.3 ml/min Estimated GFR () 111.5 Estimated GFR (Non- 96.2 BUN/Creatinine Ratio 11.9 (10-20) Calcium Level 9.2 mg/dl (8.5-10.1) Total Bilirubin 0.6 mg/dl (0.2-1) Direct Bilirubin 0.2 mg/dl (0-0.2) Aspartate Amino Transf (AST/SGOT) 27 U/L (15-37) Alanine Aminotransferase (ALT/SGPT) 49 U/L (12-78) Alkaline Phosphatase 53 U/L (45-117) Total Protein 7.9 gm/dl (6.4-8.2) Albumin 4.3 gm/dl (3.4-5.0) Lipase 246 U/L (73-393) Thyroid Stimulating Hormone (TSH) 1.190 uIu/ml (0.300-4.500) Salicylates Level 3.8 mg/dl (2.8-20) Acetaminophen Level < 2 ug/ml (10-30) Ethyl Alcohol mg/dL < 3.0 mg/dl (0-3) Fasting Glucose 94 mg/dl (70-99) Triglycerides Level 74 mg/dl (0-150) Cholesterol Level 131 mg/dl (0-200) HDL Cholesterol 31 mg/dl LDL Cholesterol, Calculated 85 mg/dl VLDL Cholesterol, Calculated 15 mg/dl Cholesterol/HDL Ratio 4.2 Valproic Acid (Depakene) Level 89 mcg/ml (50-100) Problem Qualifiers (1) Bipolar disorder: Current bipolar episode type: manic Current episode severity: severe Psychotic features: with psychotic features
[2016-11-08] MEDS: CLONAZEPAM 0.5 MG TAB PO SCH (21:10)
[2016-11-08] MEDS: PALIPERIDONE 3 MG TABCR PO SCH (21:10)
[2016-11-08] MEDS: DIVALPROEX 500 MG EXTENDED RELEASE TAB PO SCH (21:10)
[2016-11-08 21:13] VITALS: BP 119/74; PULSE 96
[2016-11-09 07:07] VITALS: BP_SYST 107; BP_SYST 99; BP_DIAS 64; BP_DIAS 66; PULSE 67; PULSE 87; TEMP 36.4
[2016-11-09] MEDS: FLUTICASONE PROPIONATE NA SPR 16 GM BTL NAE SCH (08:13)
[2016-11-09] MEDS: CETIRIZINE HCL 10 MG TAB PO SCH (08:14)
[2016-11-09] MEDS: PROPRANOLOL HCL 10 MG TAB PO SCH ×2 (08:14→21:26)
[2016-11-09] MEDS: MULTIVITAMIN TAB PO SCH (08:14)
[2016-11-09] MEDS: OMEGA-3 (PURIFIED FISH OIL) 1 GM CAP PO SCH (08:14)
--- NOTE | 2016-11-09 10:19 | Psychiatric Progress Notes ---
Progress Note Date of Service Nov 09, 2016. Interval History Jey Zelaya is a 40-year-old gentleman with bipolar type 1 who lives with his mother in [place], [place], and was admitted to our unit on a 302 involuntary commitment on 10/27/16 with an acute manic episode. He is on a 303 commitment as of 11/01/2016. Chief Complaint "I'll drive 150 MPH if I want". Subjective Patient was seen & assessed interval progress reviewed with Treatment Team. He is angry this am as we discussed discharge criteria. 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 He is focussed on commitment interfering with his difficulty purchasing a weapon and believes that he can get his license back immediately on discharge. When try to reality orient re: this he becomes agitated, disrespectful and remains focussed on discharge tomorrow without ability to meaningfully safety plan. He states he will refuse to see his current outpatient provider, still blaming Martina Mazariegos for being here when social work reviewed commitments with him and clearly outlined that she was not listed. Review of Systems nasal congestion/clear drainage, denies sedation/N/V/D/tremor or muscle rigidity Sleep Information Total Hours of Sleep: 9.25 Meal Information Percent of Breakfast Consumed: 100 Percent of Lunch Consumed: 100 Percent of Dinner Consumed: 100 Mental Status Exam During interview pt is: alert and oriented, uncooperative Appearance: disheveled Eye contact is: fair Motor behavior is: steady gait & station, psychomotor retardation Speech: loud Affect: irritable Mood is: irritable Thought process: concrete Thought content: other (remains grandiose) Suicidal thought are: denied Homicidal thoughts are: denied Hallucinations: denies auditory, denies visual Cognition: other (cognition remains impaired, but is improving) Intelligence estimated to be: average Insight: impaired Judgement: impaired Summary of Past History Records from [facility] reviewed from visit with LADARIUS Lopez, on 2016. He presented for follow-up with his mother, reported he had recently dyed his hair, and stated he wanted it to be Silver so he would look older and be respected more. He stated his [id number]-lfk had threatened him with a gun because the patient was telling him he cared about him. He talked about feeling that God was "leaving him in the dark" and he was tired of waiting on God. He said he bought a new car, and did not know how he would pay for it, but was dressed up because he planned to go to the bank after his appointment in order to buy another car and motorcycle. He said he had not been taking his medications because he felt "clearer without them." He talked about having "more direct contact with God, not really thinking about things, just going with being at the speed of light contact with God." He said he had only slept 1 -2 hours in the past month, and had been sleeping in his car, because it was more comfortable than his bed. His mother said he had been irrational, increasingly irritable, but plane tickets to [place], was spending excessive amounts of money, not sleeping, and refusing to take his medications. She was very concerned about him, and wanted him to be hospitalized. 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 He left the office and anger, and left his mother there was no transportation. She was encouraged to contact [facility]. Impression remains in denial re: his diagnosis and need for medication, currently refusing to see his current outpatient provider, case reviewed with Martina Mazariegos on , has been treating him since [facility] and never invested in medications and expressed concerns about therapist and mother enabling this position potentially. Continued Inpatient Care Continued inpatient hospitalization is medically necessary for ongoing monitoring and safety on extended involuntary commitment. Plan (1) Bipolar disorder 10/28/16 - depakote retarted at 1500mg/bedtime - invega 6mg oral started at bedtime, last trinza shot was end of September 2016 date needs to be confirmed - continue ativan 1mg po bid - continue 302 involuntary status 10/29/16 - continue plan as above, although goal is not to sedate him the fact that he is starting to feel tired is a good prognostic sign that he is starting to respond to depakote - fasting blood glucose 10/29/16 WNL at 94; fasting lipids WNL 10/30/16 - patient appears to be responding to medications, will monitor his somnolence and appreciate a few days of somnolence for recovery period from warner, VPA level is ordered for this week 10/31/16 - Continue Depakote and check trough level tomorrow. Continue oral Invega in addition to Trinza injection. - Continue Ativan for calming effect and acute stabilization only, will taper off prior to discharge due to substance abuse history. - Patient states he is willing to sign a release for his outpatient providers today, and we will coordinate care. - Patient agrees to sign a release for his mother, and will schedule a family meeting. - File for 303 commitment. - Submit mandated DMV reporting form due to unsafe driving while manic, putting himself and others at risk. 11/01/16 - 303 commitment granted. - Depakote trough level 89. - Continue Haldol 10 mg and Ativan 1 mg as needed for agitation. - Continue medically necessary private room for frequent episodes of agitation and aggression. The patient has been informed that is expected he will remain in good behavioral control, and that he can be held accountable if he causes property damage or harms another person here on the unit. 11/02 - Continue current meds - Continue MNPR for another 24 hrs but if in behavioral control, may be able to DC. 11/03 - Has been in better behavioral control, so will try discontinuing private room. 11/04 - DC ativan. Start Klonopin 1 mg. HS 11/05 - Warner sounds to be improving however thoughts remain grandiose and insight limited 11/06 - Continues to slowly improve. 11/08 - REduce hs klonopin to 0.5 due to nocturnal incontinence 11/09 --still labile mood, would suggest additional titration of Depakote and/ or PO Invega, perhaps augmentation with Haldol PO given level of breakthrough on Invega trinza. He is not amenable to discussing any of these options today and ended the interview. Outpatient provider Martina Mazariegos expresses ongoing willingness to provide care, agrees she would not sign any forms to reinstate his driving upon discharge. (2) Hypertension 10/28/16 - continue propranolol 10mg po bid 10/31 - Pressure well controlled here. Continue to monitor. (3) Obesity 10/28/16 - encouraged physical activity and watching diet 10/29/16 and 10/30/16 - agree with above - if weight gain continues could consider medications such as metformin to offset the gain of his psychotropic medications (4) Incontinent of urine reportedly incontinent in shower yesterday, ANCHORMAN working to decrease hs Klonopin and with social work on outpatient urology referral patient refusing post void residual, denies constipation Discharge / Aftercare Planning Primary Care Physician: Name: Dr Zamudio Psychiatrist: Name: Darnell Mazariegos Date of Appointment: Nov 16, 2016 Time of Appointment: 2:15pm Therapist: Name: Fernando Hale Date of Appointment: Nov 14, 2016 Time of Appointment: 3:00pm Foreign Banknote Teller: Name: Santino BRANHAM Other: Name of Appointment #1: [facility] Visit Code E&M Code: 37006 Risk Factors Assessment Male: Yes : Yes /single/: Yes Higher / Fall in social status: No Access to guns: No Health problems: Yes Mental Health Diagnoses: Yes Substance use disorders: No Previous psychiatric stay: Yes Protective Factors Assessment Lutheran beliefs: Yes : No Responsible for young children: No Stable relationships: Yes Supportive family: Yes Good rapport with provider: Yes Data Vital Signs Last 24 Hrs: Date Time Temp Pulse Resp B/P Pulse Ox O2 Delivery O2 Flow Rate FiO2 11/09/16 07:07 36.4 67 16 99/64 87 107/66 11/08/16 21:13 96 119/74 Meds Administered Last 24 Hrs: Meds Administered (Past 24Hrs) Medications (Trade) Dose Ordered Sig/Ingrid Route Start Time Stop Time Status Last Admin Dose Admin Nicotine Polacrilex (Nicorette 2MG Gum) 1 piece Q2H PRN MT 11/07/16 13:45 12/07/16 13:44 11/08/16 11:08 1 PIECE Clonazepam (Klonopin Tab) 0.5 mg HS PO 11/08/16 22:00 12/08/16 21:59 11/08/16 21:10 0.5 MG Problem Qualifiers (1) Bipolar disorder: Current bipolar episode type: manic Current episode severity: severe Psychotic features: with psychotic features
[2016-11-09] MEDS: NICOTINE POLACRILEX 2 MG GUM MT PRN (18:23)
[2016-11-09] MEDS: CLONAZEPAM 0.5 MG TAB PO SCH (21:26)
[2016-11-09] MEDS: DIVALPROEX 500 MG EXTENDED RELEASE TAB PO SCH (21:26)
[2016-11-09] MEDS: PALIPERIDONE 3 MG TABCR PO SCH (21:26)
[2016-11-10 07:01] VITALS: BP_SYST 117; BP_SYST 120; BP_DIAS 73; BP_DIAS 78; PULSE 103; PULSE 62; TEMP 36.4
[2016-11-10] MEDS: FLUTICASONE PROPIONATE NA SPR 16 GM BTL NAE SCH (08:35)
[2016-11-10] MEDS: PROPRANOLOL HCL 10 MG TAB PO SCH ×2 (08:36→21:27)
[2016-11-10] MEDS: MULTIVITAMIN TAB PO SCH (08:36)
[2016-11-10] MEDS: CETIRIZINE HCL 10 MG TAB PO SCH (08:36)
[2016-11-10] MEDS: OMEGA-3 (PURIFIED FISH OIL) 1 GM CAP PO SCH (08:36)
[2016-11-10] MEDS: NICOTINE POLACRILEX 2 MG GUM MT PRN ×2 (09:17→11:19)
[2016-11-10] MEDS ORDERED: DIVALPROEX 250 MG EXTENDED REL TAB PO ONE (11:24)
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
[2016-11-10] MEDS: CLONAZEPAM 0.5 MG TAB PO SCH (21:27)
[2016-11-10] MEDS: PALIPERIDONE 3 MG TABCR PO SCH (21:27)
[2016-11-10] MEDS: DIVALPROEX 500 MG EXTENDED RELEASE TAB PO SCH (21:27)
[2016-11-10 21:30] VITALS: PULSE 84
[2016-11-11 06:44] VITALS: BP_SYST 106; BP_SYST 112; BP_DIAS 63; BP_DIAS 75; PULSE 57; PULSE 88; TEMP 36.4
[2016-11-11] MEDS: FLUTICASONE PROPIONATE NA SPR 16 GM BTL NAE SCH (07:18)
[2016-11-11] MEDS: CETIRIZINE HCL 10 MG TAB PO SCH (07:19)
[2016-11-11] MEDS: OMEGA-3 (PURIFIED FISH OIL) 1 GM CAP PO SCH (07:19)
[2016-11-11] MEDS: PROPRANOLOL HCL 10 MG TAB PO SCH (07:19)
[2016-11-11] MEDS: MULTIVITAMIN TAB PO SCH (07:19)
[2016-11-11] MEDS ORDERED: DIVALPROEX 250 MG EXTENDED REL TAB PO SCH (09:00)
[2016-11-11] MEDS ORDERED: PALI3TAB PO (09:07)
[2016-11-11] MEDS ORDERED: KLN5 PO (09:07)
[2016-11-11] MEDS ORDERED: DPKSR250 PO (09:07)
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
[2017-04-17] MEDS ORDERED: PROP10TA7 PO ×2 (01:41→18:57)
[2017-04-17] MEDS ORDERED: GDN/80 PO (01:43)
[2017-04-17] MEDS ORDERED: TRAZ100T29 PO (01:43)
[2017-04-17] MEDS ORDERED: VALA500T60 PO (01:47)
[2017-04-17] MEDS ORDERED: MULTTAB58 PO (01:47)
[2017-04-17] MEDS ORDERED: SERT50TA PO (01:47)
[2017-04-17] MEDS ORDERED: OMEG10007 PO (01:49)
== END 2016-11-11 10:22 | disposition home or self-care (01) | DRG 885 ==
LOC: ENRESERVDT → ENRESERVTM → C.EDA 11:42 → C.MHU 18:42
PROVIDERS: ADMIT Psychiatry & Neurology Child & Adolescent Psychiatry; ATTEND Psychiatry & Neurology Child & Adolescent Psychiatry
DX: F31.9 Bipolar disorder, unspecified (principal); I10 Essential (primary) hypertension; E66.9 Obesity, unspecified; Z68.36 Body mass index [BMI] 36.0-36.9, adult; F17.200 Nicotine dependence, unspecified, uncomplicated; Z79.899 Other long term (current) drug therapy

== ENCOUNTER → 2017-03-23 | Outpatient (CLI) | payer OTHER ==
[~2017-03-23] MED LIST changes: +ATV/1 PO; -ATV1 PO; +CETI10TA84 PO; +DIVA500T3 PO; +DPKSR250 PO; -FLNIN/ NAE; +FLUT1SPR12 NAE; +GDN/80 PO; +KLN5 PO; +MULT-506 PO; +MULTTAB58 PO; +OMEG10007 PO; +PALI3TAB PO; +SERT50TA PO; +TRAZ100T29 PO; +VALA500T60 PO; -VLT500 PO; +ZIPR1CAP4 PO
[2017-03-23 12:07] LABS: BASO % 0.4 %; BASO ABS # 0.03 K/uL (0-0.2); COMPLETE YES; EOS % 1.4 %; HEMATOCRIT 42.3 % (42-52); IG% 0.6 %; LYMPH % 36.8 %; MEAN CELL VOLUME 98.4 fL (80-100); MEAN CORPUSCULAR HEMOGLOBIN 33.7 pg (25-34); MEAN CORPUSCULAR HGB CONC 34.3 g/dl (32-36); MEAN PLATELET VOLUME 9.8 fL (7.4-10.4); MONO % 9.6 %; NEUT % 51.2 %; PLATELET COUNT 183 K/uL (130-400); WHITE BLOOD COUNT 7.06 K/uL (4.8-10.8)
[2017-03-23 12:29] LABS: ALT/SGPT 45 U/L (12-78); BLOOD UREA NITROGEN 16 mg/dl (7-18); BUN/CREATININE RATIO 16.2 (10-20); CALCIUM 9.3 mg/dl (8.5-10.1); CARBON DIOXIDE 28 mmol/L (21-32); CHLORIDE 105 mmol/L (98-107); CHOLESTEROL 199 mg/dl (0-200); GLUCOSE 129 mg/dl (70-99); POTASSIUM 4.6 mmol/L (3.5-5.1); SODIUM 140 mmol/L (136-145); TRIGLYCERIDES 225 mg/dl (0-150); VERY LOW DENSITY LIPOPROT CALC 45 mg/dl
[2017-03-23 12:39] LABS: ALB/GLOB RATIO 0.9 (0.9-2); ALKALINE PHOSPHATASE 43 U/L (45-117); AST/SGOT 17 U/L (15-37); CHOLESTEROL/HDL RATIO 7.4; HDL CHOLESTEROL 27 mg/dl; LDL CHOLESTEROL CALCULATED 127 mg/dl
== END | disposition home or self-care (01) ==
LOC: C.LAB 10:50
PROVIDERS: ATTEND Psychiatry & Neurology Geriatric Psychiatry
DX: Z79.899 Other long term (current) drug therapy (principal)

== ENCOUNTER 2017-04-15 00:48 | Emergency (ER) | payer OTHER ==
[~2017-04-15] VITALS: Ht 180.3 cm; Wt 122.7 kg
[~2017-04-15 00:48] MED LIST changes: -ATV/1 PO; -DIVA500T3 PO; -GDN/80 PO; -MULTTAB58 PO; -PROP10TA7 PO; -SERT50TA PO; -TRAZ100T29 PO; -VALA500T60 PO; -ZIPR1CAP4 PO
[2017-04-15 01:03] VITALS: TEMP 36.9; Ht 180.3 cm; Wt 122.7 kg
[2017-04-15] MEDS ORDERED: LORAZEPAM 1 MG TAB SL STA (01:38)
[2017-04-15] MEDS ORDERED: ZIPR1CAP4 PO (01:43)
[2017-04-15 01:51] LABS: BASO % 0.2 %; BASO ABS # 0.02 K/uL (0-0.2); COMPLETE YES; EOS % 0.9 %; HEMATOCRIT 40.3 % (42-52); IG% 0.4 %; LYMPH % 39.7 %; MEAN CELL VOLUME 95.5 fL (80-100); MEAN CORPUSCULAR HEMOGLOBIN 34.6 pg (25-34); MEAN CORPUSCULAR HGB CONC 36.2 g/dl (32-36); MEAN PLATELET VOLUME 9.9 fL (7.4-10.4); MONO % 9.2 %; NEUT % 49.6 %; PLATELET COUNT 165 K/uL (130-400); RED BLOOD COUNT 4.22 M/uL (4.7-6.1); WHITE BLOOD COUNT 8.57 K/uL (4.8-10.8)
[2017-04-15 02:22] LABS: BENZODIAZEPINE, URINE NEG (NEG); COCAINE,URINE NEG (NEG); PHENCYCLIDINE, URINE NEG (NEG)
[2017-04-15 02:23] LABS: BUN/CREATININE RATIO 20.9 (10-20); CALCIUM 8.7 mg/dl (8.5-10.1); POTASSIUM 3.8 mmol/L (3.5-5.1)
[2017-04-15 02:33] LABS: ALB/GLOB RATIO 1.1 (0.9-2); THYROID STIMULATING HORMONE 3.13 uIu/ml (0.300-4.500)
[2017-04-15 02:44] VITALS: BP 127/76; PULSE 84; O2SAT 98
[2017-04-15 02:55] LABS: ACETAMINOPHEN < 2 ug/ml (10-30)
--- NOTE | 2017-04-15 03:06 | EMERGENCY ROOM VISIT NOTE ---
History Report prepared by Tolu: Steve Levin Under the Supervision of: Dr. Gopi Medina D.O. First contact with patient: 01:12 Chief Complaint: ANXIETY Stated Complaint: ANXIETY,NOT ABLE TO SLEEP,JITTERY History of Present Illness The patient is a 41 year old male who presents to the Emergency Room with complaints of worsening anxiety beginning two to three months ago. The patient states for the past two nights he has been not been able to sleep as much. He reports he has been feeling positive energy, and he normal sleeps 18 hours a day , but he is currently only sleeping 8 hours. The patient notes he has a history of these episodes, and these symptoms typically lead into a giant manic episode. He states he went to a birthday constitution party earlier and was analyzing everything, but he denies visual and auditory hallucinations as well as suicidal ideations. The patient reports he needs something to sleep. He notes he lies there for an hour, and he still cannot sleep. The patient states he is too joyful and Benadryl not longer helps him sleep. He reports these episodes also begin with poor hygiene. The patient notes he will neither shower nor brush his teeth for weeks. He states he is trying to lose weight, and he does not have an appetite. The patient reports he thinks he is bipolar, and he wants to stop his symptoms before he is in danger to others. He notes he is will to be evaluated for further psychiatric treatment. The patient's mother states he has a history of Bipolar 1 disorder. She reports he notices when he begins his manic phase, but once it goes too far, no one can help him. The mother notes he was treated in October for 2 weeks for his disorder. She states he would buy things he could not afford, accumulate credit , and not sleep. The mother reports he is seeing his psychiatrist and attending therapy regularly. She notes he started taking Zoloft three weeks ago. The mother states he was on Geodon but did not feel it was working. She reports the patient has received multiple evaluations to diagnosis his Bipolar disorder. The mother notes he does not like injections or admitting he has his disorder. She states she is going into surgery on Monday, and the patient has had increased anxiety since he found out. Source of History: patient, parent (mother) Onset: two to three months ago Position: other (global) Timing: worsening Note: Associated symptoms: decreased appetite, decreased sleep, poor hygiene Denies: auditory hallucination, visual hallucinations, suicidal ideations Review of Systems See HPI for pertinent positives & negatives. A total of 10 systems reviewed and were otherwise negative. Past Medical & Surgical Medical Problems: (1) Bipolar disorder (2) Hypertension (3) Incontinent of urine (4) Obesity Surgical Problems: (1) Hx of adenoidectomy (2) Hx of tonsillectomy Family History No significant family history Social History Smoking Status: Current Every Day Smoker Alcohol Use: occasionally Drug Use: other Marital Status: single Housing Status: lives with family Occupation Status: employed Current/Historical Medications Scheduled Divalproex Sodium (Depakote Er), 1,500 MG PO HS Fish Oil ([place]-3), 1 CAP PO QAM Multiple Vitamin (Multivitamin), 1 TAB PO QAM Propranolol (Inderal), 20 MG PO HS Propranolol (Inderal), 10 MG PO QAM Sertraline (Zoloft), 75 MG PO QAM Trazodone Hcl (Trazodone), 100 MG PO HS Valacyclovir (Valtrex), 500 MG PO QAM Ziprasidone Hcl (Geodon), 40 MG PO QAM Ziprasidone Hcl (Geodon), 80 MG PO HS Allergies Coded Allergies: Iron (Verified Allergy, Unknown, ., 04/15/17) Quetiapine (Unverified Allergy, Unknown, restless leg, 04/15/17) Physical Exam Vital Signs Date Time Temp Pulse Resp B/P (MAP) Pulse Ox O2 Delivery O2 Flow Rate FiO2 04/15/17 02:44 84 16 127/76 98 Room Air 04/15/17 01:03 36.9 97 18 133/91 96 Room Air Physical Exam CONSTITUTIONAL/VITAL SIGNS: Reviewed / noted above. GENERAL: Non-toxic in appearance. INTEGUMENTARY: Warm, dry, and [place]. HEAD: Normocephalic. EYES: without scleral icterus or trauma. ENT/OROPHARYNX: clear and moist. LYMPHADENOPATHY/NECK: Is supple without lymphadenopathy or meningismus. RESPIRATORY: Lungs clear and equal. CARDIOVASCULAR: Regular rate and rhythm. GI/ABDOMEN: Soft and nontender. No organomegaly or pulsatile mass. No rebound or guarding. Normal bowel sounds. EXTREMITIES: Warm and well perfused. BACK: No CVA tenderness. NEUROLOGICAL: Intact without focal deficits. PSYCHIATRIC: Appears anxious. Denies SI, auditory hallucinations, and visual hallucinations. MUSCULOSKELETAL: Normally developed with good muscle tone. Medical Decision & Procedures Laboratory Results 04/15/17 01:40 Red Blood Count 4.22, Mean Corpuscular Volume 95.5, Mean Corpuscular Hemoglobin 34.6, Mean Corpuscular Hemoglobin Concent 36.2, Mean Platelet Volume 9.9, Neutrophils (%) (Auto) 49.6, Lymphocytes (%) (Auto) 39.7, Monocytes (%) (Auto) 9.2, Eosinophils (%) (Auto) 0.9, Basophils (%) (Auto) 0.2, Neutrophils # (Auto) 4.25, Lymphocytes # (Auto) 3.40, Monocytes # (Auto) 0.79, Eosinophils # (Auto) 0.08, Basophils # (Auto) 0.02 04/15/17 01:40 Test 04/15/17 01:40 White Blood Count 8.57 K/uL (4.8-10.8) Red Blood Count 4.22 M/uL (4.7-6.1) Hemoglobin 14.6 g/dL (14.0-18.0) Hematocrit 40.3 % (42-52) Mean Corpuscular Volume 95.5 fL (80-100) Mean Corpuscular Hemoglobin 34.6 pg (25-34) Mean Corpuscular Hemoglobin Concent 36.2 g/dl (32-36) Platelet Count 165 K/uL (130-400) Mean Platelet Volume 9.9 fL (7.4-10.4) Neutrophils (%) (Auto) 49.6 % Lymphocytes (%) (Auto) 39.7 % Monocytes (%) (Auto) 9.2 % Eosinophils (%) (Auto) 0.9 % Basophils (%) (Auto) 0.2 % Neutrophils # (Auto) 4.25 K/uL (1.4-6.5) Lymphocytes # (Auto) 3.40 K/uL (1.2-3.4) Monocytes # (Auto) 0.79 K/uL (0.11-0.59) Eosinophils # (Auto) 0.08 K/uL (0-0.5) Basophils # (Auto) 0.02 K/uL (0-0.2) RDW Standard Deviation 43.2 fL (36.4-46.3) RDW Coefficient of Variation 12.4 % (11.5-14.5) Immature Granulocyte % (Auto) 0.4 % Immature Granulocyte # (Auto) 0.03 K/uL (0.00-0.02) Anion Gap 10.0 mmol/L (3-11) Est Creatinine Clear Calc Drug Dose 132.2 ml/min Estimated GFR () 109.4 Estimated GFR (Non- 94.4 BUN/Creatinine Ratio 20.9 (10-20) Calcium Level 8.7 mg/dl (8.5-10.1) Total Bilirubin 0.6 mg/dl (0.2-1) Aspartate Amino Transf (AST/SGOT) 35 U/L (15-37) Alanine Aminotransferase (ALT/SGPT) 74 U/L (12-78) Alkaline Phosphatase 45 U/L (45-117) Total Protein 7.5 gm/dl (6.4-8.2) Albumin 4.0 gm/dl (3.4-5.0) Globulin 3.5 gm/dl (2.5-4.0) Albumin/Globulin Ratio 1.1 (0.9-2) Thyroid Stimulating Hormone (TSH) 3.130 uIu/ml (0.300-4.500) Salicylates Level 4.1 mg/dl (2.8-20) Urine Opiates Screen NEG (NEG) Urine Methadone, Qualitative NEG (NEG) Acetaminophen Level < 2 ug/ml (10-30) Urine Barbiturates NEG (NEG) Urine Phencyclidine (PCP) Level NEG (NEG) Ur Amphetamine/Methamphetamine NEG (NEG) MDMA (Ecstasy) Screen POS (NEG) Urine Benzodiazepines Screen NEG (NEG) Urine Cocaine Metabolite NEG (NEG) Urine Marijuana (THC) POS (NEG) Ethyl Alcohol mg/dL < 3.0 mg/dl (0-3) Laboratory results as stated above per my review. Medications Administered Medications (Trade) Dose Ordered Sig/Ingrid Route Start Time Stop Time Status Last Admin Dose Admin Lorazepam (Ativan Tab) 1 mg NOW STAT SL 04/15/17 01:38 04/15/17 01:40 DC 04/15/17 01:46 1 MG ED Course 0116: Previous medical records were reviewed. The patient was evaluated in room A08. A complete history and physical examination was performed. 0138: Ordered Lorazepam 1mg SL Medical Decision differential includes toxic ingestions, self-mutilation, suicidal ideation, suicide attempt, depression. This is a 41-year-old male who presents to the ED with a chief complaint of unable to sleep for the past 2 days and feeling anxious. The patient has a history of bipolar type I. He states that he has been recently sleeping up to 18 hours a day. Over the past 2 days he states that he has only slept about 8 hours. He is feeling anxious and jittery. He came in for evaluation. Presents with his mother. His exam was unremarkable. Blood pressure was slightly elevated. Likely related to his situation. The patient was given Ativan by mouth for his anxiety. This did make him feel better. He was medically cleared for evaluation. The patient was evaluated by 3 S. They did not feel he requires admission or miss criteria. The patient was discharged with a Ativan home pack to help him rest. He is felt to be stable for discharge. Medication Reconcilliation Current Medication List: was personally reviewed by me Blood Pressure Screening Patient's blood pressure: Normal blood pressure Blood pressure disposition: Did not require urgent referral Impression Primary Impression: Acute anxiety Additional Impression: Insomnia Scribe Attestation The scribe's documentation has been prepared under my direction and personally reviewed by me in its entirety. I confirm that the note above accurately reflects all work, treatment, procedures, and medical decision making performed by me. Departure Information Dispostion Home / Self-Care Referrals No Doctor, Assigned (PCP) Patient Instructions My [facility] Additional Instructions Ativan: Take 1 every 6 hours as needed for anxiety or rest. Follow-up with your doctor for further care and evaluation in 1-2 days. Return to the emergency department for worsening or new symptoms or any concerns. You have been examined and treated today on an emergency basis only. This is not a substitute for, or an effort to provide, complete comprehensive medical care. It is impossible to recognize and treat all injuries or illnesses in a single emergency department visit. It is therefore important that you follow up closely with your doctor. Call as soon as possible for an appointment. Problem Qualifiers
[2017-04-15] MEDS ORDERED: ATIVAN 1MG HOMEPACK PO ONE (03:15)
[2017-04-17] MEDS ORDERED: PROP10TA7 PO ×2 (01:41→18:57)
[2017-04-17] MEDS ORDERED: GDN/80 PO (01:43)
[2017-04-17] MEDS ORDERED: TRAZ100T29 PO (01:43)
[2017-04-17] MEDS ORDERED: SERT50TA PO (01:47)
[2017-04-17] MEDS ORDERED: MULTTAB58 PO (01:47)
[2017-04-17] MEDS ORDERED: VALA500T60 PO (01:47)
[2017-04-17] MEDS ORDERED: OMEG10007 PO (01:49)
== END 2017-04-15 03:19 | disposition home or self-care (01) ==
LOC: C.EDB 00:50 → C.EDA 03:19
DX: F41.9 Anxiety disorder, unspecified (principal); G47.00 Insomnia, unspecified; F31.9 Bipolar disorder, unspecified; I10 Essential (primary) hypertension; E66.9 Obesity, unspecified; F17.200 Nicotine dependence, unspecified, uncomplicated; Z79.899 Other long term (current) drug therapy

== ENCOUNTER 2017-04-17 15:51 | Emergency (ER) | payer OTHER ==
[~2017-04-17] VITALS: Ht 180.3 cm; Wt 122.3 kg
[~2017-04-17 15:51] MED LIST changes: -CETI10TA84 PO; -DPKSR250 PO; -FLUT1SPR12 NAE; +GDN/80 PO; -KLN5 PO; -MULT-506 PO; +MULTTAB58 PO; -PALI3TAB PO; +PROP10TA7 PO; +SERT50TA PO; +TRAZ100T29 PO; +VALA500T60 PO; +ZIPR1CAP4 PO; -[UNRECOGNIZED DRUG - CODE] IM
[2017-04-17 16:03] VITALS: BP 135/92; PULSE 97; TEMP 37; O2SAT 95; Ht 180.3 cm; Wt 122.3 kg
[2017-04-17] MEDS ORDERED: ATV/1 PO (16:55)
--- NOTE | 2017-04-17 16:58 | EMERGENCY ROOM VISIT NOTE ---
ED Visit Note First contact with patient: 16:26 CHIEF COMPLAINT: Requests Ativan prescription HISTORY OF PRESENT ILLNESS: Patient is a 41-year-old white male with past medical history significant for bipolar disorder, among other psychiatric conditions, who presents emergency department requesting a prescription for Ativan. Patient is under the care of Dr. Melgar at [facility]. He was seen here at our emergency department on 04/14 for anxiety and thoroughly evaluated. He was given an Ativan home pack at that time for his increased anxiety symptoms. He notes that he only really experiences increased anxiety when he goes to buddhism or [employer] study. He does also endorse difficulty sleeping but this is not a new problem for him. He called his psychiatrist, and cannot be seen sooner than his appointment which is scheduled for 04/29. They would not provide him with a prescription for the Ativan, and offered him Vistaril which the patient declined as he states that he is taken in the past and it has not worked. He saw his therapist today. He denies feeling homicidal or suicidal. He does not feel that he needs any inpatient psychiatric evaluation at this time. PMH: Electronic medical records are reviewed and summarized as above/below. See Problem List. SOCIAL HISTORY: Patient lives at home with his mother. He does use tobacco and alcohol products. He is employed. PHYSICAL EXAM: Vital Signs: Reviewed Nurse's notes. CONSTITUTIONAL: Patient is a well-appearing 41-year-old white male who is awake and alert and in no acute distress. CARDIOVASCULAR: Regular rate and rhythm. Peripheral pulses easily palpable. RESPIRATORY: Breath sounds equal and clear to auscultation. INTEGUMENTARY: No lesions or rash, normal skin turgor. LYMPH: No lymphadenopathy. PSYCHIATRIC: Patient is alert, oriented and well groomed. Good eye contact. Answers questions appropriately. He denies any homicidal or suicidal thoughts or ideations. No flight of ideas. No tangential thinking. ED course: The patient was seen and assessed as above. His old records were thoroughly reviewed, including his most recent ED visit, and a psychiatric admission. He is requesting Ativan, which he received here a few days ago. He states that he attends buddhism once a week and [employer] study once a week. He would like to use the Ativan prior to these high anxiety situations. He has an appointment to see his psychiatrist in 2 weeks. As he reports that he would only use the Ativan at these events, I provided him with a prescription for Ativan 1 mg tablets, #4, to use. He was made aware that any further prescriptions for benzodiazepines would need to come from his psychiatrist, or his primary care provider if they are willing to write for it. Driving precautions were outlined with the Ativan use. Medication reconciliation: I attest that I have personally reviewed the patient' s current medication list. Patient was reviewed in the [facility] Prescription Drug Monitoring Program, and he has received only 2 benzodiazepine prescriptions in the last 12 months, both from psychiatric providers. Problem List Medical Problems: (1) Bipolar disorder Status: Chronic Surgical Problems: (1) Hx of adenoidectomy Status: Chronic (2) Hx of tonsillectomy Status: Chronic Current/Historical Medications Scheduled Divalproex Sodium (Depakote Er), 1,500 MG PO HS Fish Oil ([place]-3), 1 CAP PO QAM Multiple Vitamin (Multivitamin), 1 TAB PO QAM Propranolol (Inderal), 20 MG PO HS Propranolol (Inderal), 10 MG PO QAM Sertraline (Zoloft), 75 MG PO QAM Trazodone Hcl (Trazodone), 100 MG PO HS Valacyclovir (Valtrex), 500 MG PO QAM Ziprasidone Hcl (Geodon), 40 MG PO QAM Ziprasidone Hcl (Geodon), 80 MG PO HS Scheduled PRN Lorazepam (Ativan), 1 TAB PO Q6H PRN for Anxiety/Agitation Allergies Coded Allergies: Iron (Verified Allergy, Unknown, ., 04/15/17) Quetiapine (Unverified Allergy, Unknown, restless leg, 04/15/17) Vital Signs Date Time Temp Pulse Resp B/P (MAP) Pulse Ox O2 Delivery O2 Flow Rate FiO2 04/17/17 16:03 37.0 97 20 135/92 95 Room Air Departure Information Impression Primary Impression: Prescription refill Prescriptions Lorazepam (ATIVAN) 1 Mg Tab 1 TAB PO Q6H Y for Anxiety/Agitation, #4 TAB Prov: Elizabeth Wagoner PA 04/17/17 Referrals Nixon Mcdonough DAmanda (PCP) Patient Instructions My [facility] Additional Instructions Ativan 1 mg: Take 1 mg every 8 hours as needed for anxiety. As you discussed today, you only plan to use this medication prior to high-stress activities ( buddhism and bible study). Avoid alcohol, operating machinery or dangerous equipment, working on ladders or roofs, DRIVING, or situations where being under the influence may be dangerous. Continue your current medications. Return to the ER for severe anxiety or depression, thoughts of hurting yourself or others, inability to function, hallucinations, worsening of your condition, or as needed. Follow up with outpatient psychiatric services as scheduled. Follow up with your primary care physician this week for a recheck of your current condition and continued care
[2017-04-17] MEDS ORDERED: DIVA500T3 PO (18:57)
[2017-04-17] MEDS ORDERED: PROP10TA7 PO (18:57)
== END 2017-04-17 17:11 | disposition home or self-care (01) ==
LOC: C.EDB 15:53 → C.EDD 17:11
DX: Z76.0 Encounter for issue of repeat prescription (principal); F31.9 Bipolar disorder, unspecified; Z90.89 Acquired absence of other organs; Z79.899 Other long term (current) drug therapy

== ENCOUNTER → 2017-04-25 | Outpatient (CLI) | payer OTHER ==
[~2017-04-25] MED LIST changes: +ATV/1 PO; +DIVA500T3 PO
[2017-04-25 18:39] LABS: ALT/SGPT 84 U/L (12-78); BLOOD UREA NITROGEN 18 mg/dl (7-18); BUN/CREATININE RATIO 16.5 (10-20); CALCIUM 8.9 mg/dl (8.5-10.1); CARBON DIOXIDE 26 mmol/L (21-32); CHLORIDE 105 mmol/L (98-107); CHOLESTEROL 131 mg/dl (0-200); GLUCOSE 92 mg/dl (70-99); SODIUM 137 mmol/L (136-145); TRIGLYCERIDES 132 mg/dl (0-150); VERY LOW DENSITY LIPOPROT CALC 26 mg/dl
[2017-04-25 18:42] LABS: ALKALINE PHOSPHATASE 41 U/L (45-117); AST/SGOT 39 U/L (15-37); CHOLESTEROL/HDL RATIO 6.2; HDL CHOLESTEROL 21 mg/dl; LDL CHOLESTEROL CALCULATED 84 mg/dl
== END | disposition home or self-care (01) ==
LOC: C.LAB 17:52
PROVIDERS: ATTEND Physician Assistant
DX: Z00.00 Encounter for general adult medical examination without abnormal findings (principal)

== ENCOUNTER 2017-05-07 18:21 | Emergency (ER) | payer OTHER ==
[~2017-05-07] VITALS: Ht 180.3 cm; Wt 115.0 kg
[~2017-05-07 18:21] MED LIST changes: -ATV/1 PO
[2017-05-07 18:31] VITALS: TEMP 36.9; Ht 180.3 cm; Wt 115.0 kg
[2017-05-07] MEDS ORDERED: LORAZEPAM 1 MG TAB SL PRN (19:00)
[2017-05-07 19:07] LABS: URINE APPEARANCE CLEAR (CLEAR); URINE COLOR DK YELLOW; URINE NITRITE NEG (NEG); URINE PH 5.5 (4.5-7.5); URINE SPECIFIC GRAVITY 1.031 (1.000-1.030); UROBILINOGEN POS (NEG)
[2017-05-07 19:18] LABS: MANUAL MICROSCOPIC REQUIRED? NO; REVIEW REQ? NO
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
[2017-05-07 19:19] LABS: URINE BILIRUBIN NEG (NEG)
[2017-05-07 19:23] LABS: BENZODIAZEPINE, URINE NEG (NEG); COCAINE,URINE NEG (NEG); PHENCYCLIDINE, URINE NEG (NEG)
[2017-05-07 19:41] LABS: BASO % 0.3 %; BASO ABS # 0.02 K/uL (0-0.2); COMPLETE YES; EOS % 0.5 %; IG% 0.2 %; LYMPH % 35.6 %; LYMPH ABS # 2.08 K/uL (1.2-3.4); MEAN CELL VOLUME 98.5 fL (80-100); MEAN CORPUSCULAR HEMOGLOBIN 33.7 pg (25-34); MEAN CORPUSCULAR HGB CONC 34.3 g/dl (32-36); MEAN PLATELET VOLUME 9.6 fL (7.4-10.4); MONO % 11.1 %; NEUT % 52.3 %; PLATELET COUNT 150 K/uL (130-400); RED BLOOD COUNT 4.06 M/uL (4.7-6.1); WHITE BLOOD COUNT 5.84 K/uL (4.8-10.8)
[2017-05-07 20:01] LABS: BUN/CREATININE RATIO 23.2 (10-20); CALCIUM 8.5 mg/dl (8.5-10.1); CREATININE 1.07 mg/dl (0.60-1.40); POTASSIUM 3.9 mmol/L (3.5-5.1)
[2017-05-07 20:12] LABS: THYROID STIMULATING HORMONE 1.6 uIu/ml (0.300-4.500)
--- NOTE | 2017-05-08 01:02 | EMERGENCY ROOM VISIT NOTE ---
ED Visit Note This patient was sent to Dr. Jimenes at shift change. At which point the patient had been medically cleared and was awaiting psychiatric placement. [facility] has accepted the patient will be taking him in the morning he has been stable here and resting comfortably. He will be transferred to the [facility] for inpatient treatment of his bipolar disorder.
--- NOTE | 2017-05-08 05:58 | EMERGENCY ROOM VISIT NOTE ---
ED Visit Note First contact with patient: 05:00 This case was signed out to me at change of shift awaiting transport to the [facility] at 9 AM this morning. The patient was sleeping throughout most of the night. He will go voluntarily to the [facility] this morning.
[2017-05-08 08:31] VITALS: BP 144/98; PULSE 116; O2SAT 95
== END 2017-05-08 09:57 | disposition short-term general hospital (02) ==
LOC: C.EDB 18:23 → C.EDA 05-08 09:57
DX: S66.922A Laceration of unspecified muscle, fascia and tendon at wrist and hand level, left hand, initial encounter (principal); W26.0XXA Contact with knife, initial encounter; Z23 Encounter for immunization; J45.909 Unspecified asthma, uncomplicated; Z88.0 Allergy status to penicillin; Z88.1 Allergy status to other antibiotic agents

== ENCOUNTER → 2017-06-07 | Outpatient (CLI) | payer OTHER ==
[2017-06-07 10:11] LABS: BASO % 0.4 %; BASO ABS # 0.03 K/uL (0-0.2); COMPLETE YES; EOS % 2.8 %; HEMATOCRIT 45.5 % (42-52); IG% 0.2 %; LYMPH % 29.3 %; LYMPH ABS # 2.51 K/uL (1.2-3.4); MEAN CELL VOLUME 96.2 fL (80-100); MEAN CORPUSCULAR HEMOGLOBIN 33.6 pg (25-34); MEAN CORPUSCULAR HGB CONC 34.9 g/dl (32-36); MONO % 7.7 %; NEUT % 59.6 %; PLATELET COUNT 213 K/uL (130-400); RED BLOOD COUNT 4.73 M/uL (4.7-6.1); WHITE BLOOD COUNT 8.56 K/uL (4.8-10.8)
[2017-06-07 10:50] LABS: ALT/SGPT 41 U/L (12-78); AST/SGOT 14 U/L (15-37); BLOOD UREA NITROGEN 12 mg/dl (7-18); BUN/CREATININE RATIO 11.8 (10-20); CARBON DIOXIDE 30 mmol/L (21-32); CHLORIDE 104 mmol/L (98-107); CREATININE 1.04 mg/dl (0.60-1.40); GLUCOSE 94 mg/dl (70-99); POTASSIUM 4.2 mmol/L (3.5-5.1); SODIUM 140 mmol/L (136-145)
[2017-06-07 11:01] LABS: ALKALINE PHOSPHATASE 56 U/L (45-117); CHOLESTEROL 171 mg/dl (0-200); CHOLESTEROL/HDL RATIO 5.2; HDL CHOLESTEROL 33 mg/dl; LDL CHOLESTEROL CALCULATED 105 mg/dl; TRIGLYCERIDES 167 mg/dl (0-150); VERY LOW DENSITY LIPOPROT CALC 33 mg/dl
== END | disposition home or self-care (01) ==
LOC: C.LAB 09:03
PROVIDERS: ATTEND Physician Assistant
DX: Z51.81 Encounter for therapeutic drug level monitoring (principal); Z79.899 Other long term (current) drug therapy

== ENCOUNTER → 2017-08-31 | Outpatient (CLI) | payer OTHER ==
[2017-08-31 17:37] LABS: BASO % 0.2 %; BASO ABS # 0.02 K/uL (0-0.2); EOS % 1.8 %; EOS ABS # 0.18 K/uL (0-0.5); HEMATOCRIT 39.5 % (42-52); IG# 0.04 K/uL (0.00-0.02); LYMPH % 32.2 %; MEAN CELL VOLUME 98.3 fL (80-100); MEAN CORPUSCULAR HEMOGLOBIN 34.8 pg (25-34); MEAN CORPUSCULAR HGB CONC 35.4 g/dl (32-36); MEAN PLATELET VOLUME 9.8 fL (7.4-10.4); MONO % 7.2 %; MONO ABS # 0.71 K/uL (0.11-0.59); NEUT % 58.2 %; NEUT ABS # 5.78 K/uL (1.4-6.5); PLATELET COUNT 204 K/uL (130-400); RED CELL DISTRIBUTION WIDTH CV 13.6 % (11.5-14.5); RED CELL DISTRIBUTION WIDTH SD 48.8 fL (36.4-46.3); WHITE BLOOD COUNT 9.93 K/uL (4.8-10.8)
[2017-08-31 18:08] LABS: ALBUMIN 3.7 gm/dl (3.4-5.0); ALT/SGPT 55 U/L (12-78); BLOOD UREA NITROGEN 11 mg/dl (7-18); CALCIUM 9.2 mg/dl (8.5-10.1); CARBON DIOXIDE 26 mmol/L (21-32); CREATININE 0.94 mg/dl (0.60-1.40); GLUCOSE 98 mg/dl (70-99); POTASSIUM 3.6 mmol/L (3.5-5.1); SODIUM 137 mmol/L (136-145)
[2017-08-31 18:19] LABS: ALKALINE PHOSPHATASE 47 U/L (45-117); AST/SGOT 24 U/L (15-37); TOTAL PROTEIN 7.6 gm/dl (6.4-8.2)
== END | disposition home or self-care (01) ==
LOC: C.LAB 16:31
PROVIDERS: ATTEND Psychiatry & Neurology Geriatric Psychiatry
DX: R42 Dizziness and giddiness (principal); R53.83 Other fatigue; Z79.899 Other long term (current) drug therapy

== ENCOUNTER → 2017-09-06 | Outpatient (CLI) | payer OTHER ==
--- NOTE | 2017-09-06 14:28 | DIAGNOSTIC IMAGING REPORT ---
FUSION CT SINUSES W/O HISTORY: 41 years-old Male H65.493 Chronic otitis media with effusion, [id number] COMPARISON: None available TECHNIQUE: Multiple axial CT images of the paranasal sinuses were obtained without contrast. Axial Bitbondtronic images were also submitted for review. A dose lowering technique was used consistent with the principals of FLOWER. FINDINGS: The skull appears intact without fracture. There is a large left mastoid effusion with the mastoid air cells nearly completely opacified. Fluid is also present within the left middle ear cavity and epitympanum. Moderate sized right mastoid effusion is noted with fluid also present within the right middle ear cavity. No definite erosive changes of the mastoid air cells identified. No acute abnormality of the imaged intracranial structures identified. The imaged soft tissues are unremarkable. The orbits are within normal limits. Bilateral maxillary, sphenoid, and frontal sinuses are clear. Minimal mucosal thickening involves a few anterior ethmoid air cells bilaterally. There is minimal leftward bowing and spurring of the nasal septum with mucosal secretions seen within the nasal turbinates. No large rosy bullosa or Barrie cell identified. The rocael shakila appears normal. The bilateral maxillary ostiomeatal units are patent. The frontoethmoidal and sphenoethmoidal recesses are also widely patent. Indeterminate circumscribed 4 mm lucency is noted within the left maxillary bone adjacent to the left maxillary canine roots. No facial bone fracture or dislocation identified. IMPRESSION: 1. Large left and moderate right mastoid effusions with fluid also noted within the bilateral middle ear cavities, left greater than right. No definite erosive changes or associated soft tissue swelling identified. These findings are suspicious for possible otomastoiditis in the appropriate clinical setting. 2. No significant paranasal sinus disease identified. Bilateral maxillary ostiomeatal units are patent. 3. Minimal leftward bowing and spurring of the nasal septum. The above report was generated using voice recognition software. It may contain grammatical, syntax or spelling errors. Electronically signed by: Sae Morales M.D. 09/06/2017 2:27 PM Dictated Date/Time: 09/06/2017 2:19 PM
== END | disposition home or self-care (01) ==
LOC: C.CTS 13:42
DX: H65.493 Other chronic nonsuppurative otitis media, bilateral (principal); H74.91 Unspecified disorder of right middle ear and mastoid

== ENCOUNTER → 2017-10-17 | Outpatient (CLI) | payer OTHER ==
[~2017-10-17] MED LIST changes: +ABL10 PO; +ARIP1TAB17 PO; +CETI10TA84 PO; +DIPH1TAB87 PO; -DIVA500T3 PO; +ERGO500037 PO; -GDN/80 PO; +LAMO100T16 PO; +LITH1TAB PO; -PROP10TA7 PO; +PROP60CA5 PO; -SERT50TA PO; -TRAZ100T29 PO; -ZIPR1CAP4 PO
[2017-10-17 09:34] LABS: BASO % 0.2 %; BASO ABS # 0.02 K/uL (0-0.2); EOS % 1.7 %; EOS ABS # 0.14 K/uL (0-0.5); HEMATOCRIT 42.8 % (42-52); HEMOGLOBIN 15.2 g/dL (14.0-18.0); IG# 0.02 K/uL (0.00-0.02); LYMPH % 25.9 %; LYMPH ABS # 2.16 K/uL (1.2-3.4); MEAN CORPUSCULAR HEMOGLOBIN 34.1 pg (25-34); MEAN CORPUSCULAR HGB CONC 35.5 g/dl (32-36); MEAN PLATELET VOLUME 9.7 fL (7.4-10.4); MONO % 7.9 %; MONO ABS # 0.66 K/uL (0.11-0.59); NEUT % 64.1 %; NEUT ABS # 5.33 K/uL (1.4-6.5); PLATELET COUNT 195 K/uL (130-400); RED CELL DISTRIBUTION WIDTH CV 12.3 % (11.5-14.5); WHITE BLOOD COUNT 8.33 K/uL (4.8-10.8)
[2017-10-17 09:49] LABS: ALBUMIN 3.9 gm/dl (3.4-5.0); ALT/SGPT 47 U/L (12-78); BLOOD UREA NITROGEN 12 mg/dl (7-18); CALCIUM 9.3 mg/dl (8.5-10.1); CARBON DIOXIDE 29 mmol/L (21-32); CREATININE 1.06 mg/dl (0.60-1.40); GLUCOSE 130 mg/dl (70-99); SODIUM 137 mmol/L (136-145)
[2017-10-17 09:59] LABS: ALKALINE PHOSPHATASE 48 U/L (45-117); AST/SGOT 22 U/L (15-37); TOTAL PROTEIN 7.9 gm/dl (6.4-8.2)
[2017-10-18 15:04] LABS: LEAD BLOOD LESS THAN 1 MCG/DL (0-9)
== END | disposition home or self-care (01) ==
LOC: C.LAB 08:28
PROVIDERS: ATTEND Psychiatry & Neurology Psychiatry
DX: Z79.899 Other long term (current) drug therapy (principal)

== ENCOUNTER 2017-11-28 09:27 | Emergency (ER) | payer OTHER ==
[~2017-11-28] VITALS: Ht 177.8 cm; Wt 116.5 kg
[~2017-11-28 09:27] MED LIST changes: -ABL10 PO; +AMLO-110 PO; -LITH1TAB PO; +LITH600C PO; +MIRT15TA PO
[2017-11-28 09:33] VITALS: TEMP 36.6; Ht 177.8 cm; Wt 116.5 kg
[2017-11-28] MEDS ORDERED: INDSR80 PO (10:32)
[2017-11-28] MEDS ORDERED: RISP-99 PO (10:32)
--- NOTE | 2017-11-28 10:44 | DIAGNOSTIC IMAGING REPORT ---
CHEST ONE VIEW PORTABLE HISTORY: Mood Disorder COMPARISON: Chest 10/11/2016. FINDINGS: The lungs are clear. Cardiac silhouette is normal in size. No pleural effusions. No pneumothorax. IMPRESSION: No acute process. Electronically signed by: Greg Camacho M.D. 11/28/2017 10:42 AM Dictated Date/Time: 11/28/2017 10:42 AM
[2017-11-28 11:07] LABS: ALBUMIN 4.3 gm/dl (3.4-5.0); CALCIUM 8.9 mg/dl (8.5-10.1); CREATININE 1.07 mg/dl (0.60-1.40); POTASSIUM 4.2 mmol/L (3.5-5.1)
[2017-11-28 11:17] LABS: TOTAL PROTEIN 8.3 gm/dl (6.4-8.2)
[2017-11-28 11:52] LABS: BASO % 0.2 %; BASO ABS # 0.02 K/uL (0-0.2); EOS % 1.5 %; EOS ABS # 0.16 K/uL (0-0.5); HEMATOCRIT 43.1 % (42-52); HEMOGLOBIN 15.6 g/dL (14.0-18.0); IG# 0.02 K/uL (0.00-0.02); LYMPH % 22.1 %; LYMPH ABS # 2.39 K/uL (1.2-3.4); MEAN CELL VOLUME 92.9 fL (80-100); MEAN CORPUSCULAR HEMOGLOBIN 33.6 pg (25-34); MEAN CORPUSCULAR HGB CONC 36.2 g/dl (32-36); MEAN PLATELET VOLUME 8.8 fL (7.4-10.4); MONO % 6.5 %; NEUT % 69.5 %; NEUT ABS # 7.54 K/uL (1.4-6.5); PLATELET COUNT 220 K/uL (130-400); RED CELL DISTRIBUTION WIDTH CV 12.4 % (11.5-14.5); RED CELL DISTRIBUTION WIDTH SD 41.7 fL (36.4-46.3); WHITE BLOOD COUNT 10.83 K/uL (4.8-10.8)
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
[2017-11-28 18:16] VITALS: BP 154/88; PULSE 112; O2SAT 96
== END 2017-11-28 18:16 ==
LOC: C.EDB 09:29 → C.EDA 18:16
DX: F39 Unspecified mood [affective] disorder (principal); F22 Delusional disorders; R45.851 Suicidal ideations; F31.9 Bipolar disorder, unspecified; I10 Essential (primary) hypertension; Z79.899 Other long term (current) drug therapy; F17.210 Nicotine dependence, cigarettes, uncomplicated; Z91.048 Other nonmedicinal substance allergy status; Z88.8 Allergy status to other drugs, medicaments and biological substances

== ENCOUNTER → 2018-03-01 | Outpatient (CLI) | payer OTHER ==
[~2018-03-01] MED LIST changes: -AMLO-110 PO; -ARIP1TAB17 PO; +CHLO1TAB19 PO; +CHLO50TA6 PO; -DIPH1TAB87 PO; +DIPH25CA65 PO; -ERGO500037 PO; +FLUO10CA48 PO; -LAMO100T16 PO; +LAMO200T35 PO; +LITH150C PO; -MIRT15TA PO; -OMEG10007 PO; +PALI156I INJ; +PROP20TA67 PO; -PROP60CA5 PO
--- NOTE | 2018-03-01 13:50 | DIAGNOSTIC IMAGING REPORT ---
CT OF THE LEFT FOOT WITHOUT CONTRAST CLINICAL HISTORY: Left foot pain. Evaluate dorsal great toe distal phalanx fracture. COMPARISON STUDY: No previous studies for comparison. TECHNIQUE: Axial images of the left foot were obtained without intravenous contrast. Sagittal and coronal reconstructions were viewed. FINDINGS: There is no acute fracture of the distal left tibia or fibula. The talar dome is intact. Tarsometatarsal joints are intact. There is no acute fracture within the left midfoot or the hind foot. Note is made of an acute appearing mildly displaced fracture which involves the dorsal base of the distal phalanx of the left first toe. Fracture involves approximately 40% of the articular surface of the distal phalanx. Fracture fragment measures 1.2 x 0.6 cm. There is no acute fracture of the proximal phalanx. No additional fractures are identified within the left forefoot. No erosions are identified. No mass is identified on this unenhanced exam. IMPRESSION: Acute appearing mildly displaced intra-articular fracture of the dorsal base of the distal phalanx of the left great toe, as described above. Electronically signed by: Alcides Zapata M.D. 03/01/2018 1:49 PM Dictated Date/Time: 03/01/2018 1:41 PM
== END | disposition home or self-care (01) ==
LOC: C.CTS 13:05
PROVIDERS: ATTEND Physician Assistant
DX: S92.422A Displaced fracture of distal phalanx of left great toe, initial encounter for closed fracture (principal); X58.XXXA Exposure to other specified factors, initial encounter

== ENCOUNTER 2019-08-02 14:57 | Inpatient (IN) ==
[2019-08-02 16:13] LABS: Appearance Urine Clear (Clear); Bilirubin Urine Negative (Negative); Blood Urine Negative (Negative); Color Urine Yellow; Glucose Urine UA Negative (Negative); Ketones Urine Negative (Negative); Leukocyte Esterase Urine Negative (Negative); Nitrite Urine Negative (Negative); Protein Urine Negative (Negative); Specific Gravity Urine 1.009 (1.000-1.030); Urobilinogen Urine Negative (Negative); pH Urine 6.5 (4.5-7.5)
[2019-08-02 16:26] LABS: Basophils # (auto) 0.02 K/uL (0-0.2); Basophils % (auto) 0.2 %; Eosinophils # (auto) 0.22 K/uL (0-0.5); Eosinophils % (auto) 2.5 %; Hemoglobin 15.3 g/dL (14.0-18.0); Immature Granulocytes # (auto) 0.01 K/uL (0.00-0.02); Immature Granulocytes % (auto) 0.1 %; Lymphocytes # (auto) 2.54 K/uL (1.2-3.4); Lymphocytes % (auto) 29.2 %; Mean Corpuscular Hemoglobin 34.5 pg (25-34); Mean Corpuscular Hgb Conc 35.6 g/dL (32-36); Mean Corpuscular Volume 97.1 fL (80-100); Mean Platelet Volume 9.7 fL (7.4-10.4); Monocytes # (auto) 0.58 K/uL (0.11-0.59); Monocytes % (auto) 6.7 %; Neutrophils # (auto) 5.32 K/uL (1.4-6.5); Neutrophils % (auto) 61.3 %; Platelet Count 196 K/uL (130-400); RDW Coefficient of Variation 12.5 % (11.5-14.5); RDW Standard Deviation 44.3 fL (36.4-46.3); Red Blood Count 4.43 M/uL (4.7-6.1); White Blood Count 8.69 K/uL (4.8-10.8)
[2019-08-02 16:30] LABS: Amphetamines+Metham, Urine Neg (Neg); Barbiturates, Urine Neg (Neg); Benzodiazepine, Urine Neg (Neg); Cocaine, Urine Neg (Neg); MDMA (Ecstacy), Urine Neg (Neg); Methadone, Urine Neg (Neg); Opiate, Urine Neg (Neg); Phencyclidine, Urine Neg (Neg)
[2019-08-02 16:45] LABS: BUN Creatinine Ratio 13.7 (10-20); Calcium 9.3 mg/dl (8.5-10.1); Creatinine Clr Calc Pharmacy 119.7 ml/min; Est GFR (African American) 98.3; Est GFR (Non-African American) 84.8; Potassium 4.6 mmol/L (3.5-5.1)
[2019-08-02 16:50] LABS: Acetaminophen < 2 ug/ml (10-30); Lithium 0.9 mmol/L (0.6-1.2); Salicylate 3.8 mg/dl (2.8-20)
[2019-08-02 16:56] LABS: Albumin Globulin Ratio 1.1 (0.9-2); Bilirubin,Total 0.4 mg/dl (0.2-1); Globulin 3.7 gm/dl (2.5-4.0); Thyroid Stimulating Hormone 1.38 uIu/ml (0.300-4.500); Total Protein 7.7 gm/dl (6.4-8.2)
--- NOTE | 2019-08-02 18:04 | Emergency Department Note ---
Entered by Sara Alfaro acting as a scribe for History of Present Illness General Chief complaint: Mental Health Evaluation Stated complaint: SUICIDAL THOUGHTS Time Seen by Provider: 08/02/19 15:09 Source: patient and family (mother) Mode of arrival: ambulatory Limitations: no limitations History of Present Illness Provider complaint: Depression Onset (ago): day(s) (a couple of days ago) Location: head Radiation: non-radiation Severity: similar to prior episodes Pain Consistency: + other (worsening) Maximum Pain Intensity: 2 Quality: + other (depression, feelings of inadequacy and hopelessness) Relieved By: + none Associated symptoms: + other (Additional symptoms: poor sleep, psychosis. Denies : suicidal ideations.) The patient is a 43 year old female with a history of anxiety, depression, bipolar 1 disorder, schizoaffective disorder, sleep apnea on CPAP, fatty liver, and prediabetes who presents to the Emergency Room with complaints of worsening depression starting a couple of days ago. The patient claims that he has a calling to be a witness in [place] but is worried that he will never be who he wants to be in [place]. He reports that he has been dealing with feelings of inadequacy and hopelessness for years and has had similar episodes of wanting to give up in the past. He denies trying to hurt himself, although he indicates that he smokes, which bothers him. He adds that he imagines it "would be his duty to hurt other people in his time," and he also complains of poor sleep. Per mother, the patient transitioned from Invega Sustenna to Ariprprazole injections in April 2019. She reports that this transition was rough and that they are now in the process of going back to Invega Sustenna. More recently, she states that the patient has been slipping back into the psychotic part of his bipolar disorder. She notes that he sees a therapist at [facility] once a week and Martina Ricketts PA-C every 28 days for his Ariprprazole injection. The patient indicates that he lives with his mother. He denies any recent alcohol and drug usage. Home Medications Home Medications Medication Instructions Recorded Confirmed Type Invega Sustenna 1 dose IM UD 10/11/18 08/02/19 History melatonin 10 mg PO HS 10/11/18 08/02/19 History multivitamin [Multiple Vitamins] 1 tab PO QAM 10/11/18 08/02/19 History omega 5-ktv-lvl-fish oil [Fish Oil] 1 cap PO HS 10/11/18 08/02/19 History propranolol 20 mg PO BID 10/11/18 08/02/19 History lithium carbonate 300 mg tablet 600 mg PO BID tab 03/15/19 08/02/19 History lamotrigine 200 mg tablet 200 mg PO BID 04/17/19 08/02/19 History aripiprazole 400 mg suspension, 400 mg IM .COMPLEX ea 05/29/19 08/02/19 History extended rel.intramuscular syringe valacyclovir 500 mg tablet 500 mg PO QAM #30 tab 06/24/19 08/02/19 Rx metformin 1,000 mg PO BID 08/02/19 08/02/19 History risperidone 1 mg PO DAILY 08/02/19 08/02/19 History Allergies Allergy/AdvReac Type Severity Reaction Status Date / Time iron Allergy Unknown PT DOES Verified 05/29/19 10:07 NOT KNOW quetiapine AdvReac Unknown restless Verified 05/29/19 10:07 leg Past Med/Surg History Medical History Anxiety Bipolar disorder Depression Fatty liver Prediabetes Schizoaffective disorder Sleep apnea CPAP Smokes 1 pack of cigarettes per day Surgical History History of arthroscopy of left knee History of ear surgery History of hand surgery R History of nasal septoplasty with bilateral inferior turbinate reduction-11/07/18-Dr. English History of placement of ear tubes History of toe surgery L "BIG TOE" History of tonsillectomy and adenoidectomy EAR TUBES PLACED AT SAME TIME History of wisdom tooth extraction Family History Grandfather Myocardial infarction Uncle Myocardial infarction Mother FHx: deafness or hearing loss Allergies Sinus disorder Sister FHx: deafness or hearing loss Grandmother FHx: deafness or hearing loss Allergies Sinus disorder Unknown Asthma Allergies Social History Preferred Language: Welsh Communication Ability: Effective Embedded Systems Engineer Required: No Beliefs That Will Affect Care: None Current Living Situation: Parent Current Living Situation Comment: LIVES WITH MOTHER Feels Safe at Home: Yes Smoking Status: Current every day smoker Tobacco Type: cigarettes ; Cigarettes Per Day: 1PPD/ADVISED ; Hx Alcohol Use: No Hx Substance Use: Yes ("PRETTY MUCH EVERYTHING" - DENIES CURRENT USE OF) substance use type: does not use Substance Use Type Other:: JUL 13, 2018 Review of Systems See HPI for pertinent positives & negatives. and A total of 10 systems reviewed and were otherwise negative Physical Exam Vital Signs Vital Signs - 24 hr 08/02/19 15:01 08/02/19 16:43 08/02/19 16:50 Temperature 37.0 C Temperature Source Oral Pulse Rate 93 H Pulse Rate [Right Finger] 90 Respiratory Rate 16 18 Blood Pressure 171/98 H Blood Pressure [Right Arm] 130/70 Blood Pressure Mean 122 Blood Pressure Mean [Right Arm] 90 Blood Pressure Position [Right Arm] Pulse Oximetry 97 95 Oxygen Delivery Method Room Air Sepsis Recent Fever Within 48 Hours No No Sepsis New/Unexplained Change in Mental Status No No Sepsis Action Taken by Nursing No Action Required No Action Required 08/02/19 18:00 Temperature Temperature Source Pulse Rate Pulse Rate [Right Finger] 91 H Respiratory Rate 20 Blood Pressure Blood Pressure [Right Arm] 135/88 Blood Pressure Mean Blood Pressure Mean [Right Arm] 103 Blood Pressure Position [Right Arm] Sitting Pulse Oximetry 94 Oxygen Delivery Method Sepsis Recent Fever Within 48 Hours Sepsis New/Unexplained Change in Mental Status Sepsis Action Taken by Nursing GENERAL: Awake, alert, well-appearing, in no distress HENT: Normocephalic, atraumatic. EYES: Normal conjunctiva. Sclera non-icteric. RESPIRATORY: Clear to auscultation. Normal respiratory effort. CARDIAC: Normal rate. Normal rhythm. Extremities warm and well perfused. GI: Soft, non-distended. No tenderness to palpation. MUSCULOSKELETAL: Atraumatic. Chest examination reveals no tenderness LOWER EXTREMITIES: Calves are equal size bilaterally and non-tender. NEURO: Normal sensorium. No sensory or motor deficits noted. No facial droop. PSYCH: Hyper mosque. Thoughts of depression and self harm. States that he has some thoughts to hurt others. SKIN: Warm and dry. No rash or jaundice noted. Course Course 1522: The patient was evaluated in room A10, and a complete history and physical examination were performed. 1899: The patient was accepted to [address] [place] [address] at this time for further management. Administered Medications Discontinued Medications Lamotrigine (Lamictal) 200 mg PO ONCE ONE Stop: 08/02/19 18:25 Last Admin: 08/02/19 18:45 Dose: 200 mg Documented by: [id number] Ali Chuk Carbonate (Ali Chuk Carbonate) 600 mg PO ONE ONE Stop: 08/02/19 18:25 Last Admin: 08/02/19 18:45 Dose: 600 mg Documented by: [id number] Metformin HCl (Glucophage) 1,000 mg PO ONE ONE Stop: 08/02/19 18:25 Last Admin: 08/02/19 18:45 Dose: 1,000 mg Documented by: [id number] Propranolol HCl (Inderal) 20 mg PO NOW STA Stop: 08/02/19 18:24 Last Admin: 08/02/19 18:45 Dose: 20 mg Documented by: [id number] Medical Decision Making Differential Diagnosis Differential diagnosis: Etiologies such as mood disorder, infection, hypoglycemia, electrolyte abnormalities, cardiac sources, intracerebral event, toxicologic, neurologic, as well as others were entertained. Medical Records Attestation: I reviewed the patient's medical records. Home Medications Current Medication List: was personally reviewed by me Laboratory Data Attestation: I reviewed the patient's lab results. Result diagrams: 08/02/19 16:12 08/02/19 16:12 Lab Results 08/02/19 08/02/19 08/02/19 Range/Units 15:12 15:12 16:12 WBC 8.69 (4.8-10.8) K/uL RBC 4.43 L (4.7-6.1) M/uL Hgb 15.3 (14.0-18.0) g/dL Hct 43.0 (42-52) % MCV 97.1 (80-100) fL MCH 34.5 H (25-34) pg MCHC 35.6 (32-36) g/dL RDW Std Deviation 44.3 (36.4-46.3) fL RDW Coeff of Yris 12.5 (11.5-14.5) % Plt Count 196 (130-400) K/uL MPV 9.7 (7.4-10.4) fL Immature Gran % (Auto) 0.1 % Neut % (Auto) 61.3 % Lymph % (Auto) 29.2 % [place] % (Auto) 6.7 % Eos % (Auto) 2.5 % Baso % (Auto) 0.2 % Immature Gran # (Auto) 0.01 (0.00-0.02) K/uL Neut # (Auto) 5.32 (1.4-6.5) K/uL Lymph # (Auto) 2.54 (1.2-3.4) K/uL [place] # (Auto) 0.58 (0.11-0.59) K/uL Eos # (Auto) 0.22 (0-0.5) K/uL Baso # (Auto) 0.02 (0-0.2) K/uL Sodium (136-145) mmol/L Potassium (3.5-5.1) mmol/L Chloride (98-107) mmol/L Carbon Dioxide (21-32) mmol/L Anion Gap (3-11) BUN (7-18) mg/dl Creatinine (0.6-1.4) mg/dl Est Cr Clr Drug Dosing ml/min Est GFR ( Amer) Est GFR (Non-Af Amer) BUN/Creatinine Ratio (10-20) Glucose (70-99) mg/dl Calcium (8.5-10.1) mg/dl Total Bilirubin (0.2-1) mg/dl AST (15-37) U/L ALT (12-78) U/L Alkaline Phosphatase (45-117) U/L Total Protein (6.4-8.2) gm/dl Albumin (3.4-5.0) gm/dl Globulin (2.5-4.0) gm/dl Albumin/Globulin Ratio (0.9-2) TSH (0.300-4.500) uIu/ml Urine Color Yellow Urine Appearance Clear (Clear) Urine pH 6.5 (4.5-7.5) Ur Specific [place] 1.009 (1.000-1.030) Urine Protein Negative (Negative) Urine Glucose (UA) Negative (Negative) Urine Ketones Negative (Negative) Urine Blood Negative (Negative) Urine Nitrite Negative (Negative) Urine Bilirubin Negative (Negative) Urine Urobilinogen Negative (Negative) Ur Leukocyte Esterase Negative (Negative) Salicylates (2.8-20) mg/dl Urine Opiates Screen Neg (Neg) Ur Methadone, Qual Neg (Neg) Acetaminophen (10-30) ug/ml Urine Barbiturates Neg (Neg) Ur Phencyclidine (PCP) Neg (Neg) U Amphetamin/Meth Scrn Neg (Neg) MDMA (Ecstasy) Screen Neg (Neg) U Benzodiazepines Scrn Neg (Neg) Ali Chuk (0.6-1.2) mmol/L Ur Cocaine Metabolite Neg (Neg) U Marijuana (THC) Screen Neg (Neg) Ethyl Alcohol mg/dL (0-3) mg/dl 08/02/19 08/02/19 08/02/19 Range/Units 16:12 16:12 16:12 WBC (4.8-10.8) K/uL RBC (4.7-6.1) M/uL Hgb (14.0-18.0) g/dL Hct (42-52) % MCV (80-100) fL MCH (25-34) pg MCHC (32-36) g/dL RDW Std Deviation (36.4-46.3) fL RDW Coeff of Yris (11.5-14.5) % Plt Count (130-400) K/uL MPV (7.4-10.4) fL Immature Gran % (Auto) % Neut % (Auto) % Lymph % (Auto) % [place] % (Auto) % Eos % (Auto) % Baso % (Auto) % Immature Gran # (Auto) (0.00-0.02) K/uL Neut # (Auto) (1.4-6.5) K/uL Lymph # (Auto) (1.2-3.4) K/uL [place] # (Auto) (0.11-0.59) K/uL Eos # (Auto) (0-0.5) K/uL Baso # (Auto) (0-0.2) K/uL Sodium 139 (136-145) mmol/L Potassium 4.6 (3.5-5.1) mmol/L Chloride 108 H (98-107) mmol/L Carbon Dioxide 29 (21-32) mmol/L Anion Gap 2.0 L (3-11) BUN 15 (7-18) mg/dl Creatinine 1.08 (0.6-1.4) mg/dl Est Cr Clr Drug Dosing 119.7 ml/min Est GFR ( Amer) 98.3 Est GFR (Non-Af Amer) 84.8 BUN/Creatinine Ratio 13.7 (10-20) Glucose 110 H (70-99) mg/dl Calcium 9.3 (8.5-10.1) mg/dl Total Bilirubin 0.4 (0.2-1) mg/dl AST 23 (15-37) U/L ALT 50 (12-78) U/L Alkaline Phosphatase 63 (45-117) U/L Total Protein 7.7 (6.4-8.2) gm/dl Albumin 4.0 (3.4-5.0) gm/dl Globulin 3.7 (2.5-4.0) gm/dl Albumin/Globulin Ratio 1.1 (0.9-2) TSH 1.380 (0.300-4.500) uIu/ml Urine Color Urine Appearance (Clear) Urine pH (4.5-7.5) Ur Specific [place] (1.000-1.030) Urine Protein (Negative) Urine Glucose (UA) (Negative) Urine Ketones (Negative) Urine Blood (Negative) Urine Nitrite (Negative) Urine Bilirubin (Negative) Urine Urobilinogen (Negative) Ur Leukocyte Esterase (Negative) Salicylates 3.8 (2.8-20) mg/dl Urine Opiates Screen (Neg) Ur Methadone, Qual (Neg) Acetaminophen < 2 L (10-30) ug/ml Urine Barbiturates (Neg) Ur Phencyclidine (PCP) (Neg) U Amphetamin/Meth Scrn (Neg) MDMA (Ecstasy) Screen (Neg) U Benzodiazepines Scrn (Neg) Ali Chuk 0.9 (0.6-1.2) mmol/L Ur Cocaine Metabolite (Neg) U Marijuana (THC) Screen (Neg) Ethyl Alcohol mg/dL < 3.0 (0-3) mg/dl Blood Pressure Blood Pressure Findings: Elevated blood pressure Blood Pressure Disposition: further management by hospitalist SHANE Narrative Patient is a 43-year-old gentleman history of schizoaffective sorter presenting today with his mother due to worsening psychiatric symptoms over the past several weeks. Transitioned to different antipsychotics over the last several months and not having good reactions with decline in mental health hyper mosque thoughts stating that he is a witness for the bulk of [employer]. Thoughts of harming himself of occurred he states to me as he is not thinking of [place]asha and off. Denies attempts at this point but feels he needs inpatient treatment. Medical clearance was completed. Ali Chuk level therapeutic. Bed search was initiated. Psychiatric leather case finisher assisted with evaluation. Accepted by [facility] for further inpatient treatment on 201. Impression & Plan Schizoaffective disorder, Thoughts of self harm Discharge Plan Visit Data Chief Complaint: Mental Health Evaluation Stated Complaint: SUICIDAL THOUGHTS ED Provider: Ramos Walton Discharge Problem: Schizoaffective disorder, Thoughts of self harm Patient Disposition: Transfer Behavioral Health Fac Forms Stand Alone Forms: My [facility], Suicide Prevention Resources Prescriptions Prescriptions: No Action valacyclovir 500 mg tablet 500 mg PO QAM Qty: 30 RF: 5 Abilify Maintena 400 mg suspension,extended rel syring 400 mg IM .COMPLEX RF: 0 risperidone 1 mg tablet 1 mg PO DAILY RF: 0 metformin 500 mg tablet 1,000 mg PO BID RF: 0 multivitamin [Multiple Vitamins] Tablet 1 tab PO QAM RF: 0 propranolol 20 mg Tablet 20 mg PO BID RF: 0 Invega Sustenna 234 mg/1.5 mL Syringe 1 dose IM UD RF: 0 omega 8-jfm-zyz-fish oil [Fish Oil] 1,000 mg (120 mg-180 mg) Capsule 1 cap PO HS RF: 0 melatonin 10 mg Tablet 10 mg PO HS RF: 0 lithium carbonate 300 mg tablet 600 mg PO BID RF: 0 lamotrigine 200 mg tablet 200 mg PO BID RF: 0 Referrals Referrals: Nixon Mcdonough DO [Primary Care Provider] - Discharge Problem: Schizoaffective disorder Qualifiers: Schizoaffective disorder type: bipolar Qualified Code(s): F25.0 - Schizoaffective disorder, bipolar type The scribe's documentation has been prepared under my direction and personally reviewed by me in its entirety. I confirm that the note above accurately reflects all work, treatment, procedures, and medical decision making performed by me.
[2019-08-02] MEDS ORDERED: PROPRANOLOL HCL 10 MG TAB PO STA (18:23)
[2019-08-02] MEDS ORDERED: LITHIUM CARBONATE 300 MG TAB PO ONE (18:24)
[2019-08-02] MEDS ORDERED: METFORMIN HCL 500 MG TAB PO ONE (18:24)
[2019-08-02] MEDS ORDERED: lamoTRIgine 100 MG TAB PO ONE (18:24)
[2019-08-02] MEDS ORDERED: MAGNESIUM HYDROXIDE SUSP 30 ML UDC PO PRN (18:43)
[2019-08-02] MEDS ORDERED: ALUMINUM/MAGNESIUM SUSP 30 ML UDC PO PRN (18:43)
[2019-08-02] MEDS ORDERED: SODIUM CHLORIDE 0.65% NA SOLN 45 ML (OCEAN) PRN (18:43)
[2019-08-02] MEDS ORDERED: BISMUTH SUBSALICYLATE PER ML OMNICELL CHARGE PO PRN (18:43)
[2019-08-02] MEDS ORDERED: ACETAMINOPHEN 325 MG TAB PO PRN (18:43)
[2019-08-02] MEDS: OMEGA-3 (PURIFIED FISH OIL) 1 GM CAP PO SCH (21:14)
--- NOTE | 2019-08-03 07:45 | History & Physical ---
Date of Service August 03, 2019 Impression / Recommendations Impression 43-year-old single male with a history of schizoaffective disorder bipolar type, remote history of substance abuse in remission, and multiple medical problems who presented with worsening mood and psychotic symptoms and suicidal ideation in the context of medication changes. We are still working to clarify his current medication regimen and the recent medication adjustments, and we will coordinate care with his outpatient psychiatric PA on Monday. In the interim, will resume risperidone 3 mg daily in divided dosing, and continue lithium and lamotrigine. He just had vitamin D levels drawn yesterday, which were low, so we will start supplementation as well. He would like to stop smoking, we will continue to provide support and education. He will need a family meeting with his mother, and coordination with his outpatient treatment team. Inpatient treatment is medically necessary due to the severity of his symptoms and risk for self-harm if discharged. (1) Thoughts of self harm: 08/03 -continue voluntary hospitalization. Every 15 minute checks for safety. -Encourage group attendance and participation. Work on healthy coping skills and discharge safety plan. Present on Admission?: Yes (2) Schizoaffective disorder: 08/03 - Continue home dose of risperidone 1mg qam and 2mg HS, lithium 600mg bid, and lamotrigine 200mg bid. -Got Abilify Maintenna 07/23/19, but psychotic symptoms worsening, so switching back to Invega Sustenna with plan to get loading injections at the end of Jul. If he is agreeable, we consider reloading him on Sustenna earlier. -Fasting lipid profile and Hgb A1C ordered for tomorrow am. -Will coordinate care with Martina Brown on Monday when office reopens give multiple med changes and conflicting reports - particularly regarding risperidone, as patient thinks his mother told him to stop it, but just filled Rx last week. Sleep was poor last night which could be due to missing HS dose. Unclear if he was taking prescribed dose recently, gives conflicting reports. 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 Schizoaffective disorder type: bipolar Qualified Code(s): F25.0 - Schizoaffective disorder, bipolar type Present on Admission?: Yes (3) Smokes 1 pack of cigarettes per day: 08/03 -patient declined smoking cessation education and nicotine replacement on admission. -Discussed his desire to quit smoking today, and ordered nicotine patch 14mg and gum prn cravings, which he is unsure if he wants. -Will arrange OP f/u at [facility] Present on Admission?: Yes (4) Vitamin D deficiency: 08/03 -vitamin D level checked yesterday and was low at 27.5. Start supplementation with vitamin D3 800 mg p.o. daily. Follow-up with PCP. Present on Admission?: Yes (5) Severe obstructive sleep apnea: 08/03 -continue CPAP, MNPR, one-to-one overnight for safety due to SI, cord access. Present on Admission?: Yes (6) Hypertension: 08/03 -blood pressure stable; continue home dose of propanolol. Present on Admission?: Yes (7) Genital herpes simplex type 2: 08/03 -continue home dose of valacyclovir. Present on Admission?: Yes (8) Elevated hemoglobin A1c: 08/03 -continue Metformin, check hemoglobin A1c tomorrow for monitoring on an atypical antipsychotic. Present on Admission?: Yes (9) Obesity: 08/03 -BMI 36.4; encourage healthy diet and exercise. Continue metformin which may protect from antipsychotic-induced weight gain. 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 Chief Complaint "To be honest, I was set on quitting smoking, I was talking to a pentecostalism member, I go to two churches, he was saying how will I make a good witness..." History of Present Illness The patient is known to us from previous hospitalizations, last on our unit in 2017 for 15 days for a manic episode. He was on Invega Trinza at the time, but had stopped all of his oral medications. While here, he was started on oral Invega and Depakote. He was discharged to outpatient follow-up with Martina Brown at [facility], therapist Fernando Hale, and [facility] Santino Holland. He presented to the ER yesterday, 08/02/2019, with his mother, reporting worsening depression over the past several days, with suicidal thoughts. He was religiously focused, stating he wanted to be a witness in revelation, but was worried that he would never be who he wanted to be in [place]. He reported feeling inadequate, hopeless, and wanting to give up. Made statements that it would be his "duty to hurt other people in his time." He endorsed poor sleep, and increasing paranoia. His mother stated that he had been switched from Invega Sustenna to Abilify Maintena a few months ago, but it did not go well, and he is now switching back to Sustenna. He denied any recent drug or alcohol use. Admission labs were notable for RBC 4.43, glucose 110, and TSH 1.380. Salicylate level 3.8, acetaminophen level negative. Lamotrigine level pending, and lithium level (non-trough, at 16:12 yesterday) was 0.9. He agreed to voluntary hospitalization, and was cooperative with the admission process. He had very poor sleep last night, despite receiving hydroxyzine, only sleeping 2.5 hours. On my assessment, he struggles to describe why he decided to come to the hospital, talking about smoking and the churches he attends, concerns that people don't think he is a good witness, and not wanting to be around his mother. He expresses some frustration that he wants to quit smoking but that his mother keeps buying cigarettes for him. He reports frustration with his life, shame, and low self esteem. SI has been worsening for the past 2 months, and he feels more hopeless. Sleep has been poor for the past 4 nights, 3 hrs or less, and prior to that was 6 hours, which is not enough per him. Appetite is good, he has been trying to lose weight, and lost around 20lbs over the last 3 months with dietary changes. He denies recent manic symptoms. He has a structured schedule with pentecostalism twice on Mon. at 2 different churches, [facility] and individual therapy on , Bib study . and , and was attending [facility] but thinks he might stop. 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 He reports paranoia that people think poorly of him, gives example of man from pentecostalism whom he was asking about Pasha's lineage as detailed in the Bible, and why there were discrepancies, and this man told him he didn't know the answer, which Morales found hard to believe as "he has extensive knowledge of the Bible." He told this man he wanted to be a witness in the Revelation, and believes that is it reasonable that God could return during his lifetime "given the way the world is," and he told the patient that to be a credible witness, he needs to spread the word of God, and needed to stop smoking. This was very stressful and upsetting to Morales, "I wanted to quit right there and then," but he then "went out and had a cigarette, and this papo from my pentecostalism came down," and he wondered why this person was driving past, "that's unusual. I thought I was being spied on." He reports thinking has been more scattered since switching from Invega Sustenna to Abilify Maintena in Apr., due to weight gain and sexual side effects, and plan to switch back to Invega. He initially states he's been struggling with doing his ADLs, but then contradicts himself and says it hasn't been hard. He denies AVH but reports "a weird sensation in my head, like it's hard to pay attention, worse when I'm using my brain." Past Psychiatric History Previous Psych History: History of substance abuse (alcohol, prescription stimulants, cannabis, and cocaine), previously diagnosed with bipolar disorder type I, and it appears diagnosis is now been changed to schizoaffective disorder bipolar type. Has been seen at [facility] in the past. Current Psychiatric Diagnosis: Schizoeffective disorder, Bipolar type Outpatient Services: LADARIUS Lopez at [facility] Therapist at [facility] Attends [facility] weekly PCP Dr. Nixon Mcdonough Previous Psych Admissions: Multiple to this facility and others. Last here in 10/2016. Most recent hospitalization January 2018 at [facility]. Do You Have Access To A Gun?: No History of Previous Suicide Attempt: Yes Describe Attempts in the Past: 20, loaded rifle in mouth Past Medication Trials: Include but not limited to: Depakote Invega Trinza Invega Sustenna Paliperidone Aripiprazole Abilify Maintena - symptoms worsened Bupropion Escitalopram Lorazepam Clonazepam Allergies Allergy/AdvReac Type Severity Reaction Status Date / Time iron Allergy Unknown PT DOES Verified 05/29/19 10:07 NOT KNOW quetiapine AdvReac Unknown restless Verified 05/29/19 10:07 leg Home Medications Home Medications Medication Instructions Recorded Confirmed Type Invega Sustenna 1 dose IM UD 10/11/18 08/02/19 History melatonin 10 mg PO HS 10/11/18 08/02/19 History multivitamin [Multiple Vitamins] 1 tab PO QAM 10/11/18 08/02/19 History omega 2-mkh-xok-fish oil [Fish Oil] 1 cap PO HS 10/11/18 08/02/19 History propranolol 20 mg PO BID 10/11/18 08/02/19 History lithium carbonate 300 mg tablet 600 mg PO BID tab 03/15/19 08/02/19 History lamotrigine 200 mg tablet 200 mg PO BID 04/17/19 08/02/19 History aripiprazole 400 mg suspension, 400 mg IM .COMPLEX ea 05/29/19 08/02/19 History extended rel.intramuscular syringe valacyclovir 500 mg tablet 500 mg PO QAM #30 tab 06/24/19 08/02/19 Rx metformin 1,000 mg PO BID 08/02/19 08/02/19 History risperidone 1 mg PO DAILY 08/02/19 08/02/19 History risperidone [Risperdal] 2 mg PO HS 08/03/19 08/03/19 History Family History Family History of: Other Mood Disorders Alcohol History Hx of Alcohol Use Over the Past 12 Months: Yes (struggled with alcohol in past, none since May) AUDIT Total Score: 3 History of alcohol abuse and DUIs. Smoking Use Have You Smoked or Used Tobacco Products in the Last 30 Days: Yes tobacco type: cigarettes Smoking Status: Current every day smoker Substance History Hx of Prescription Med Misuse Over the Past 12 Months: No Hx of Over the Counter Med Misuse Over the Past 12 Months: No Hx of Inhalent Misuse Over the Past 12 Months: No Hx of Organic Substance Use Over the Past 12 Months: No Hx of Illegal Substances/Street Drug Use Over Past 12 Months: No Problems as a Result of Past Substance Use: Arrested History of alcohol, cocaine, cannabis, heroin, synthetics, benzodiazepine and prescription stimulant abuse. History of arrest with DUI. History of inpatient substance abuse treatment at [facility] in the past. Personal History Living Arrangements: Home Living Arrangements Comments: With mother in [place] Childhood: Raised by both parents until they and then when he was young. Grew up locally. Has 1 brother and 1 sister, and a younger half- brother on his father's side. Highest Grade Completed Comment: Attended multiple postsecondary schools, including [employer], [employer], and [employer], but never received a degree. 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 English History of placement of ear tubes History of toe surgery L "BIG TOE" History of tonsillectomy and adenoidectomy EAR TUBES PLACED AT SAME TIME History of wisdom tooth extraction Family History Grandfather Myocardial infarction Uncle Myocardial infarction Mother FHx: deafness or hearing loss Allergies Sinus disorder Sister FHx: deafness or hearing loss Grandmother FHx: deafness or hearing loss Allergies Sinus disorder Unknown Asthma Allergies Social History Preferred Language: Belarusian Communication Ability: Effective Child Development Specialist Required: No Beliefs That Will Affect Care: Bahai Current Living Situation: Parent Current Living Situation Comment: LIVES WITH MOTHER Feels Safe at Home: Yes Smoking Status: Current every day smoker Tobacco Type: cigarettes ; Cigarettes Per Day: 1PPD/ADVISED ; Hx Alcohol Use: No Hx Substance Use: Yes ("PRETTY MUCH EVERYTHING" - DENIES CURRENT USE OF) substance use type: does not use Substance Use Type Other:: JUL 13, 2018 Review of Systems Review of Systems: All systems reviewed & are unremarkable except as noted in HPI & below Physical Exam Psychiatric: Orientation: alert, oriented x 3 and cooperative Apperance: appropriately dressed, appropriately groomed and appeared stated age sitting in NAD, drinking coffee Eye Contact: + fair eye contact Motor Behavior: steady gait and station and no abnormal motor movements Speech: normal rate/rhythm/volume of speech Affect: + depressed affect and mood congruent with affect Mood: + depressed mood Thought Process: + circumstantial thought process, + tangential thought process and + perseveration Thought Content: + preoccupation (gnosticist), + paranoid, + hopelessness, + worthlessne ss and + guilt Suicidal Thoughts: + reports suicidal thoughts Homicidal Thoughts: denies homicidal thoughts Hallucinations: no auditory hallucinations and no visual hallucinations Cognition: recent memory grossly intact and language grossly intact; + attention not intact Estimated Intelligence: consistent with education level Insight: + impaired insight Judgement: + fair judgement Vital Signs (Past 24 Hours): Last Vital Signs Temp 36.6 C 08/03/19 06:38 Pulse 83 08/03/19 06:40 Resp 18 08/03/19 06:38 BP 124/85 08/03/19 06:40 Pulse Ox 98 08/02/19 19:55 Exam Statement: A physical exam was performed in the ER prior to admission to the unit by Dr. Ramos Walton. I accept that physical as correct/medical clearance for the inpatient physical exam. Results & Data Laboratory Results Laboratory Results - last 24 hr 08/02/19 08/02/19 08/02/19 15:12 15:12 16:12 WBC 8.69 RBC 4.43 L Hgb 15.3 Hct 43.0 MCV 97.1 MCH 34.5 H MCHC 35.6 RDW Std Deviation 44.3 RDW Coeff of Yris 12.5 Plt Count 196 MPV 9.7 Immature Gran % (Auto) 0.1 Neut % (Auto) 61.3 Lymph % (Auto) 29.2 [place] % (Auto) 6.7 Eos % (Auto) 2.5 Baso % (Auto) 0.2 Immature Gran # (Auto) 0.01 Neut # (Auto) 5.32 Lymph # (Auto) 2.54 [place] # (Auto) 0.58 Eos # (Auto) 0.22 Baso # (Auto) 0.02 Sodium Potassium Chloride Carbon Dioxide Anion Gap BUN Creatinine Est Cr Clr Drug Dosing Est GFR ( Amer) Est GFR (Non-Af Amer) BUN/Creatinine Ratio Glucose Calcium Total Bilirubin AST ALT Alkaline Phosphatase Total Protein Albumin Globulin Albumin/Globulin Ratio TSH Urine Color Yellow Urine Appearance Clear Urine pH 6.5 Ur Specific Accident 1.009 Urine Protein Negative Urine Glucose (UA) Negative Urine Ketones Negative Urine Blood Negative Urine Nitrite Negative Urine Bilirubin Negative Urine Urobilinogen Negative Ur Leukocyte Esterase Negative Salicylates Urine Opiates Screen Neg Ur Methadone, Qual Neg Acetaminophen Urine Barbiturates Neg Ur Phencyclidine (PCP) Neg U Amphetamin/Meth Scrn Neg MDMA (Ecstasy) Screen Neg U Benzodiazepines Scrn Neg [employer] Ur Cocaine Metabolite Neg U Marijuana (THC) Screen Neg Ethyl Alcohol mg/dL 08/02/19 08/02/19 08/02/19 16:12 16:12 16:12 WBC RBC Hgb Hct MCV MCH MCHC RDW Std Deviation RDW Coeff of Yris Plt Count MPV Immature Gran % (Auto) Neut % (Auto) Lymph % (Auto) [place] % (Auto) Eos % (Auto) Baso % (Auto) Immature Gran # (Auto) Neut # (Auto) Lymph # (Auto) [place] # (Auto) Eos # (Auto) Baso # (Auto) Sodium 139 Potassium 4.6 Chloride 108 H Carbon Dioxide 29 Anion Gap 2.0 L BUN 15 Creatinine 1.08 Est Cr Clr Drug Dosing 119.7 Est GFR ( Amer) 98.3 Est GFR (Non-Af Amer) 84.8 BUN/Creatinine Ratio 13.7 Glucose 110 H Calcium 9.3 Total Bilirubin 0.4 AST 23 ALT 50 Alkaline Phosphatase 63 Total Protein 7.7 Albumin 4.0 Globulin 3.7 Albumin/Globulin Ratio 1.1 TSH 1.380 Urine Color Urine Appearance Urine pH Ur Specific Accident Urine Protein Urine Glucose (UA) Urine Ketones Urine Blood Urine Nitrite Urine Bilirubin Urine Urobilinogen Ur Leukocyte Esterase Salicylates 3.8 Urine Opiates Screen Ur Methadone, Qual Acetaminophen < 2 L Urine Barbiturates Ur Phencyclidine (PCP) U Amphetamin/Meth Scrn MDMA (Ecstasy) Screen U Benzodiazepines Scrn [employer] 0.9 Ur Cocaine Metabolite U Marijuana (THC) Screen Ethyl Alcohol mg/dL < 3.0 Current Inpatient Medications Current Inpatient Medications: Current Inpatient Medications Acetaminophen (Tylenol) 650 mg PO Q4H PRN PRN Reason: Headache or Minor Fever Stop: 09/01/19 18:42 Al Hydrox/Mg Hydrox/Simethicone (Maalox) 30 ml PO Q4H PRN PRN Reason: GI Upset Stop: 09/01/19 18:42 Bismuth Subsalicylate (Kaopectate) 15 ml PO PRN PRN PRN Reason: Loose Stool Stop: 09/01/19 18:42 Fish Oil (Cranberry-3 (Purified Fish Oil)) 1 gm PO HS JOHN Stop: 09/01/19 20:59 Last Admin: 08/02/19 21:14 Dose: 1 gm Documented by: Hydroxyzine HCl (Vistaril) 50 mg PO HSZ PRN PRN Reason: Insomnia Stop: 09/01/19 18:42 Last Admin: 08/03/19 00:42 Dose: 50 mg Documented by: Hydroxyzine HCl (Vistaril) 25 mg PO Q4H PRN PRN Reason: Anxiety Stop: 09/01/19 18:42 Lamotrigine (Lamictal) 200 mg PO BID JOHN Stop: 09/02/19 08:59 [employer] Carbonate ([employer] Carbonate) 600 mg PO BID JOHN Stop: 09/02/19 08:59 Magnesium Hydroxide (Milk Of Magnesia) 30 ml PO DAILY PRN PRN Reason: Constipation Stop: 09/01/19 18:42 Metformin HCl (Glucophage) 1,000 mg PO BIDM JOHN Stop: 09/02/19 08:59 Multivitamins (Multivitamin Tab) 1 tab PO QAM JOHN Stop: 09/02/19 08:59 Propranolol HCl (Inderal) 20 mg PO BID JOHN Stop: 09/02/19 08:59 Risperidone (Risperdal) 1 mg PO DAILY [facility] Stop: 09/02/19 08:59 Sodium Chloride (Emanuel Nasal) 1 - 2 sprays NA PRN PRN PRN Reason: Nasal Dryness/Congestion Stop: 09/01/19 18:42
[2019-08-03] MEDS: METFORMIN HCL 500 MG TAB PO SCH ×2 (08:25→17:26)
[2019-08-03] MEDS: lamoTRIgine 100 MG TAB PO SCH ×2 (08:26→21:12)
[2019-08-03] MEDS: PROPRANOLOL HCL 20 MG TAB PO SCH ×2 (08:26→21:19)
[2019-08-03] MEDS: LITHIUM CARBONATE 300 MG TAB PO SCH ×2 (08:26→21:13)
[2019-08-03] MEDS: MULTIVITAMIN TAB PO SCH (08:27)
[2019-08-03] MEDS: risperiDONE 1 MG TABLET PO SCH (08:27)
[2019-08-03] MEDS ORDERED: NICOTINE POLACRILEX 2 MG GUM MT PRN (11:20)
[2019-08-03] MEDS: CHOLECALCIFEROL (VITAMIN D) 400 UNITS TABLET PO SCH (12:35)
[2019-08-03] MEDS: OMEGA-3 (PURIFIED FISH OIL) 1 GM CAP PO SCH (21:13)
[2019-08-03] MEDS ORDERED: risperiDONE 2 MG TABLET PO SCH (22:00)
[2019-08-04] MEDS ORDERED: CHLORPROMAZINE HCL 25 MG TABLET PO ONE (00:15)
[2019-08-04] MEDS: METFORMIN HCL 500 MG TAB PO SCH ×2 (08:38→18:46)
[2019-08-04] MEDS: PROPRANOLOL HCL 20 MG TAB PO SCH ×2 (08:39→22:17)
[2019-08-04] MEDS: LITHIUM CARBONATE 300 MG TAB PO SCH ×2 (08:39→22:18)
[2019-08-04] MEDS: lamoTRIgine 100 MG TAB PO SCH ×2 (08:39→22:18)
[2019-08-04] MEDS: CHOLECALCIFEROL (VITAMIN D) 400 UNITS TABLET PO SCH (08:40)
[2019-08-04] MEDS: risperiDONE 1 MG TABLET PO SCH (08:40)
[2019-08-04] MEDS: MULTIVITAMIN TAB PO SCH (08:40)
[2019-08-04 08:43] LABS: Chol HDL Ratio 5; Cholesterol 144 mg/dl (0-200); HDL Cholesterol 28 mg/dl; LDL Cholesterol Calculated 79 mg/dl; Triglycerides 183 mg/dl (0-150); VLDL Cholesterol 37 mg/dl
[2019-08-04] MEDS ORDERED: CHLORPROMAZINE HCL 100 MG TABLET PO PRN (11:19)
--- NOTE | 2019-08-04 11:26 | Psychiatric Progress Note ---
Date of Service August 04, 2019 Impression / Recommendations Impression 43-year-old single male with a history of schizoaffective disorder bipolar type, remote history of substance abuse in remission, and multiple medical problems who presented with worsening mood and psychotic symptoms and suicidal ideation in the context of medication changes. Will coordinate care with his outpatient psychiatric PA on Monday. Initially, resumed risperidone 3 mg daily in divided dosing, and continued lithium and lamotrigine. His symptoms have been worsening, very little sleep the past 2 nights. Today discussed discontinuing risperidone and resuming oral paliperidone with a plan to transition to Sustenna if he tolerates it well. He is fearful of taking sedating medication at bedtime as he thinks that he is not breathing properly and his throat will close, so will check pulse ox tonight in an attempt to reassure him and ensure adequate oxygenation. He will need a family meeting with his mother once his symptoms are better stabilized, and coordination with his outpatient treatment team. Inpatient treatment is medically necessary due to the severity of his symptoms and risk for self-harm if discharged. (1) Thoughts of self harm: 08/03 -continue voluntary hospitalization. Every 15 minute checks for safety. -Encourage group attendance and participation. Work on healthy coping skills and discharge safety plan. (2) Schizoaffective disorder: 08/03 - Continue home dose of risperidone 1mg qam and 2mg HS, lithium 600mg bid, and lamotrigine 200mg bid. -Got Abiliailyn Starkstenna 07/23/19, but psychotic symptoms worsening, so switching back to Invega Sustenna with plan to get loading injections at the end of Jul. If he is agreeable, we consider reloading him on Sustenna earlier. -Fasting lipid profile and Hgb A1C ordered for tomorrow am. -Will coordinate care with Martina Brown on Monday when office reopens give multiple med changes and conflicting reports - particularly regarding risperidone, as patient thinks his mother told him to stop it, but just filled Rx last week. Sleep was poor last night which could be due to missing HS dose. Unclear if he was taking prescribed dose recently, gives conflicting reports. 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 08/04 - [place] trough 0.9. FLP notable for TG 183, HDL is 28. Hgb A1C pending. Reviewed lab results with patient. - Discussed medication options, patient agreed to try oral paliperidone in place of risperidone, and if tolerated, will resume Sustenna. - Sleep worsening, patient does not want to try different sleep medications as fears his throat will close and he'll stop breathing. Can continue to offer chlorpromazine 100mg HS prn. (3) Smokes 1 pack of cigarettes per day: 08/03 -patient declined smoking cessation education and nicotine replacement on admission. -Discussed his desire to quit smoking today, and ordered nicotine patch 14mg and gum prn cravings, which he is unsure if he wants. -Will arrange OP f/u at [facility] (4) Vitamin D deficiency: 08/03 -vitamin D level checked yesterday and was low at 27.5. Start supplementation with vitamin D3 800 mg p.o. daily. Follow-up with PCP. (5) Severe obstructive sleep apnea: 08/03 - continue CPAP, MNPR, one-to-one overnight for safety due to SI, cord access. 08/04 - Respiratory has already come and checked his CPAP, will do pulse ox overnight (6) Hypertension: 08/03 -blood pressure stable; continue home dose of propanolol. (7) Genital herpes simplex type 2: 08/03 -continue home dose of valacyclovir. (8) Elevated hemoglobin A1c: 08/03 -continue Metformin, check hemoglobin A1c tomorrow for monitoring on an atypical antipsychotic. 08/04 -Hgb A1C pending. (9) Obesity: 08/03 -BMI 36.4; encourage healthy diet and exercise. Continue metformin which may protect from antipsychotic-induced weight gain. 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 Chief Complaint "Can I talk to you now?" Review of Systems Sleep Information Total Hours of Sleep: 1 Sleep Comments: requested one dose of vistaril 50mg. refused a repeat dose. Meal Information Percent Meal Consumed - Breakfast: 100 Percent Meal Consumed - Lunch: 100 Percent Meal Consumed - Dinner: 100 Subjective Subjective Patient was seen & assessed and interval progress reviewed with nursing. Staff report he had a difficult evening last night, was irritable, complaining about the rules on the unit. He had difficulty sleeping, despite receiving hydroxyzine and chlorpromazine, and expressed concerns that his CPAP was not working. Respiratory therapy was contacted so that he could use 1 of the hospitals machines, but he only slept 1 hour. On my assessment, he reports he was not able to sleep last night, which he attributes to his throat, "I have to concentrate on keeping it open." He also reports intrusive and fearful thoughts that "God is doing something to me, I feel like he hates me, I know he loves me...it's like I'm in a horror movie, is it payback for something..." He wonders if he "did the wrong thing" by coming into the hospital, as thinks his sleep would be better if he was in his own bed. He says "I don't feel suicidal, but they are, things are out of control." He doesn't think that sleep medication will help as "that won't fix my throat." Mood remains low, with hopelessness, and many fears. Endorses feeling confused, contradicting himself. Repeatedly states he is fearful of taking any medication for sleep as he thinks he won't be able to breathe. Physical Exam Psychiatric Orientation: oriented x 3 Appears very tired Apperance: appropriately dressed, appropriately groomed and appeared stated age Eye Contact: + fair eye contact Motor Behavior: steady gait and station and no abnormal motor movements Halting, sometimes trails off mid sentence Affect restricted to tired and irritable Mood: + depressed mood, + anxious mood and + irritable mood Thought Process: + tangential thought process, + looseness of associations, + perseveration and + incoherent thought process Thought Content: + paranoid, + persecution, + hopelessness, + worthlessness, + guilt and + self deprecation Suicidal Thoughts: + reports suicidal thoughts Homicidal Thoughts: denies homicidal thoughts Hallucinations: no auditory hallucinations and no visual hallucinations Cognition: language grossly intact; + attention not intact Insight: + impaired insight Judgement: + impaired judgement Vital Signs (Past 24 Hours) Last Vital Signs Temp 36.5 C 08/04/19 06:47 Pulse 102 H 08/04/19 06:49 Resp 18 08/04/19 06:47 BP 122/73 08/04/19 06:49 Pulse Ox 96 08/04/19 00:25 Results & Data Laboratory Results Laboratory Results - last 24 hr 08/04/19 08/04/19 08/04/19 07:50 07:50 07:50 Estimat Average Glucose Pending Hemoglobin A1c Pending Triglycerides 183 H Cholesterol 144 LDL Cholesterol, Calc 79 VLDL Cholesterol, Calc 37 HDL Cholesterol 28 Cholesterol/HDL Ratio 5 [place] 0.9 Current Inpatient Medications Current Inpatient Medications: Current Inpatient Medications Acetaminophen (Tylenol) 650 mg PO Q4H PRN PRN Reason: Headache or Minor Fever Stop: 09/01/19 18:42 Al Hydrox/Mg Hydrox/Simethicone (Maalox) 30 ml PO Q4H PRN PRN Reason: GI Upset Stop: 09/01/19 18:42 Bismuth Subsalicylate (Kaopectate) 15 ml PO PRN PRN PRN Reason: Loose Stool Stop: 09/01/19 18:42 Fish Oil ([place]-3 (Purified Fish Oil)) 1 gm PO HS JOHN Stop: 09/01/19 20:59 Last Admin: 08/03/19 21:13 Dose: 1 gm Documented by: Hydroxyzine HCl (Vistaril) 50 mg PO HSZ PRN PRN Reason: Insomnia Stop: 09/01/19 18:42 Last Admin: 08/03/19 22:34 Dose: 50 mg Documented by: Hydroxyzine HCl (Vistaril) 25 mg PO Q4H PRN PRN Reason: Anxiety Stop: 09/01/19 18:42 Lamotrigine (Lamictal) 200 mg PO BID JOHN Stop: 09/02/19 08:59 Last Admin: 08/04/19 08:39 Dose: 200 mg Documented by: [place] Carbonate ([place] Carbonate) 600 mg PO BID [facility] Stop: 09/02/19 08:59 Last Admin: 08/04/19 08:39 Dose: 600 mg Documented by: Magnesium Hydroxide (Milk Of Magnesia) 30 ml PO DAILY PRN PRN Reason: Constipation Stop: 09/01/19 18:42 Metformin HCl (Glucophage) 1,000 mg PO BIDM [facility] Stop: 09/02/19 08:59 Last Admin: 08/04/19 08:38 Dose: 1,000 mg Documented by: Miscellaneous (Remove Nicoderm Patch) 1 ea N/A DAILY@0859 [facility] Stop: 09/03/19 08:58 Last Admin: 08/04/19 08:38 Dose: Not Given Documented by: Multivitamins (Multivitamin Tab) 1 tab PO QAM [facility] Stop: 09/02/19 08:59 Last Admin: 08/04/19 08:40 Dose: 1 tab Documented by: Nicotine (Nicoderm Cq) 14 mg TD QAM PRN PRN Reason: craving Stop: 09/02/19 11:29 Nicotine Polacrilex (Nicorette 2mg) 1 piece MT PRN PRN; Protocol PRN Reason: cravings Stop: 09/02/19 11:19 Propranolol HCl (Inderal) 20 mg PO BID [facility] Stop: 09/02/19 08:59 Last Admin: 08/04/19 08:39 Dose: 20 mg Documented by: Risperidone (Risperdal) 1 mg PO DAILY [facility] Stop: 09/02/19 08:59 Last Admin: 08/04/19 08:40 Dose: 1 mg Documented by: Risperidone (Risperdal) 2 mg PO HS [facility] Stop: 09/02/19 21:59 Last Admin: 08/03/19 21:13 Dose: 2 mg Documented by: Sodium Chloride ([place] Nasal) 1 - 2 sprays NA PRN PRN PRN Reason: Nasal Dryness/Congestion Stop: 09/01/19 18:42 Vitamin D (Vitamin D3) 800 units PO QAM [facility] Stop: 09/02/19 10:44 Last Admin: 08/04/19 08:40 Dose: 800 units Documented by: Mental Health & Subst Abuse Tx Therapist Name of Therapist: Alka Kapoor Manager Medicaid Name of Manager Medicaid: none Post Discharge Appointments Primary Care Physician Name Of Family Doctor: Dr. Nixon Mcdonough (1) Schizoaffective disorder Schizoaffective disorder type: bipolar Qualified Code(s): F25.0 - Schizoaffective disorder, bipolar type
[2019-08-04] MEDS: NICOTINE 14 MG/24 HR PATCH TD PRN (13:33)
[2019-08-04] MEDS ORDERED: haloperidoL 5 MG TAB PO PRN (15:17)
[2019-08-04] MEDS: OMEGA-3 (PURIFIED FISH OIL) 1 GM CAP PO SCH (22:18)
[2019-08-05 06:21] LABS: Estimated Average Glucose 88 mg/dl; Hemoglobin A1C 4.7 % (4.5-5.6)
[2019-08-05] MEDS: METFORMIN HCL 500 MG TAB PO SCH ×2 (08:36→17:32)
[2019-08-05] MEDS: LITHIUM CARBONATE 300 MG TAB PO SCH ×2 (08:37→21:55)
[2019-08-05] MEDS: MULTIVITAMIN TAB PO SCH (08:37)
[2019-08-05] MEDS: PROPRANOLOL HCL 20 MG TAB PO SCH ×2 (08:37→21:53)
[2019-08-05] MEDS: lamoTRIgine 100 MG TAB PO SCH ×2 (08:37→21:54)
[2019-08-05] MEDS: CHOLECALCIFEROL (VITAMIN D) 400 UNITS TABLET PO SCH (08:37)
[2019-08-05] MEDS ORDERED: PALIPERIDONE 3 MG TABCR PO SCH (09:00)
--- NOTE | 2019-08-05 11:17 | Psychiatric Progress Note ---
Date of Service August 05, 2019 Impression / Recommendations Impression 43-year-old single male with a history of schizoaffective disorder bipolar type, remote history of substance abuse in remission, and multiple medical problems who presented with worsening mood and psychotic symptoms and suicidal ideation in the context of medication changes. Will attempt to coordinate care with his outpatient psychiatric PA to obtain collateral information and align treatment goals. Initially, patient was resumed on risperidone 3 mg daily in divided dosing, and continued lithium and lamotrigine. His symptoms demonstrated worsening, with very little sleep for about 2 nights. As a result, risperidone was discontinued and patient was re-started on oral paliperidone. Pt is agreeable with eventual conversion to Invega Sustenna if he is able to demonstrate tolerance of the oral medication. Pt is far less somatically preoccupied today. He reports significantly improved sleep last evening, and no longer feels that breathing will be a concern. Pt had previously submitted his 72-hour notice due to feeling his breathing problems would be resolved by returning to his own bed - he did rescind this request this morning after a decent night sleep. Pt does not verbalize any delusional thought content during our encounter, and is demonstrating a more organized thought process. He is religiously preoccupied during our conversation, unclear what the extent of this is at baseline. He will need a family meeting with his mother once his symptoms are better stabilized, and coordination with his outpatient treatment team. Inpatient treatment is medically necessary due to the severity of his symptoms and risk for self-harm if discharged. (1) Thoughts of self harm: 08/03 -continue voluntary hospitalization. Every 15 minute checks for sa fety. -Encourage group attendance and participation. Work on healthy coping skills and discharge safety plan. 08/05 - Denies SI or thoughts of self-harm today (2) Schizoaffective disorder: 08/03 - Continue home dose of risperidone 1mg qam and 2mg HS, lithium 600mg bid, and lamotrigine 200mg bid. -Got Elvira Wilsonna 07/23/19, but psychotic symptoms worsening, so switching back to Invega Sustenna with plan to get loading injections at the end of Jul. If he is agreeable, we consider reloading him on Sustenna earlier. -Fasting lipid profile and Hgb A1C ordered for tomorrow am. -Will coordinate care with Martina Brown on Monday when office reopens give multiple med changes and conflicting reports - particularly regarding risperidone, as patient thinks his mother told him to stop it, but just filled Rx last week. Sleep was poor last night which could be due to missing HS dose. Unclear if he was taking prescribed dose recently, gives conflicting reports. 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 08/04 - [place] trough 0.9. FLP notable for TG 183, HDL is 28. Hgb A1C pending. Reviewed lab results with patient. - Discussed medication options, patient agreed to try oral paliperidone in place of risperidone, and if tolerated, will resume Sustenna. - Sleep worsening, patient does not want to try different sleep medications as fears his throat will close and he'll stop breathing. Can continue to offer chlorpromazine 100mg HS prn. 08/05 - Pt is far less somatically preoccupied today; stating he slept well last evening - denies continued throat concerns - Pt tolerating initiation of oral paliperidone - received 3mg dose this morning; will titrate to 6mg for tomorrow morning's dose - Pt remains agreeable with eventual conversion to Invega Sustenna if he tolerate oral medication - Pt willing for family meeting with mother prior to discharge - will need to schedule meeting - Continue attempts to gather collateral information from outpatient psychiatric prescriber (3) Smokes 1 pack of cigarettes per day: 08/03 -patient declined smoking cessation education and nicotine replacement on admission. -Discussed his desire to quit smoking today, and ordered nicotine patch 14mg and gum prn cravings, which he is unsure if he wants. -Will arrange OP f/u at [place] (4) Vitamin D deficiency: 08/03 -vitamin D level checked yesterday and was low at 27.5. Start supple mentation with vitamin D3 800 mg p.o. daily. Follow-up with PCP. (5) Severe obstructive sleep apnea: 08/03 - continue CPAP, MNPR, one-to-one overnight for safety due to SI, cord access. 08/04 - Respiratory has already come and checked his CPAP, will do pulse ox overnight 08/05 - Pt reporting significantly improved sleep last evening - Pulse ox obtained on two occasions overnight - 97% both times; no reported evidence of airway disturbance by gasping or choking - Maintain MNPR for continued use of CPAP (6) Hypertension: 08/03 -blood pressure stable; continue home dose of propanolol. (7) Genital herpes simplex type 2: 08/03 -continue home dose of valacyclovir. (8) Elevated hemoglobin A1c: 08/03 -continue Metformin, check hemoglobin A1c tomorrow for monitoring on an atypical antipsychotic. 08/04 -Hgb A1C pending. (9) Obesity: 08/03 -BMI 36.4; encourage healthy diet and exercise. Continue metformin which may protect from antipsychotic-induced weight gain. 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 Chief Complaint "Things were going really bad for a while. But last night, thank God, I slept!" Review of Systems Notes Constitutional: reports significantly improved sleep last evening Cardiovascular: denied Respiratory: denied Gastrointestinal: denied Neurological: denied Psychiatric: denies symptoms other than stated above Total of at least 10 systems reviewed, pertinent positives as above and in HPI. Sleep Information Total Hours of Sleep: 7.5 Sleep Comments: requested one dose of vistaril 50mg. refused a repeat dose. Meal Information Percent Meal Consumed - Breakfast: 100 Percent Meal Consumed - Lunch: 100 Percent Meal Consumed - Dinner: 100 Subjective Subjective Patient was seen & assessed and interval progress reviewed with treatment team. Staff report the patient had been appearing more subdued last evening. He continued to be somatically preoccupied requesting pulmonology and ENT consults for the belief that he would stop breathing overnight. He reportedly continued to demonstrated delusional and disorganized thoughts last evening. Staff report the patient did appear to sleep soundly last evening, with no evidence of oxygen desaturation or breathing obstruction. Pt was seen today to assess progress since admission. Pt states that things were "going really bad at home, I wasn't sleeping, I thought I would at night because I couldn't breath." He is happy to announce that he slept well last evening, feeling this has made a significant difference in his mood today. Pt is able to clearly inform this provider of his past psychiatric treatment, and follows a conversation regarding past medication trials. He states the he remains agreeable to converting oral paliperidone to Invega Sustenna, and asks very appropriate questions regarding how this will be managed. Pt denies paranoia here on the unit, and does not verbalize any delusional thought content. He does mention multiple times a desire to read scripture with other patient, and requests that have been made for him to "pray over everyone - they ask and I'm happy to do it." Pt states that his mood, while improved, is a bit more irritable - but demonstrates ways he can manage this irritability appropriately on the unit. He states that his goal for today is to "continue to be positive." He denies SI, as well as other needs or concerns today. Physical Exam Psychiatric Orientation: alert, oriented x 3 and cooperative (and pleasant) Apperance: appropriately dressed, appropriately groomed and appeared stated age Eye Contact: good eye contact Motor Behavior: steady gait and station and no abnormal motor movements Speech: normal rate/rhythm/volume of speech (spontaneous) Affect: + blunted affect and mood congruent with affect Mood: + irritable mood ("more positive, but still irritable at times") Thought Process: goal directed thought process, clear/coherent thought process and thought association intact; thought process not tangential and no perseveration Thought Content: reality based without delusions (does not verbalize any delusional thought content today); no preoccupation (stating he is no longer concerned about breathing concerns with sleep ) He is mildly religiously preoccupied, though the nature of these thoughts at baseline is not currently known Suicidal Thoughts: denies suicidal thoughts and denies suicidal intent Homicidal Thoughts: denies homicidal thoughts Hallucinations: no auditory hallucinations and no visual hallucinations Cognition: attention grossly intact and language grossly intact Insight: + impaired insight (though improving ) Judgement: + impaired judgement Vital Signs (Past 24 Hours) Last Vital Signs Temp 36.5 C 08/05/19 06:54 Pulse 79 08/05/19 08:35 Resp 16 08/05/19 08:35 BP 111/70 08/05/19 08:35 Pulse Ox 97 08/05/19 06:56 Results & Data Laboratory Results Laboratory Results - last 24 hr 08/04/19 07:50 Estimat Average Glucose 88 Hemoglobin A1c 4.7 Current Inpatient Medications Current Inpatient Medications: Current Inpatient Medications Acetaminophen (Tylenol) 650 mg PO Q4H PRN PRN Reason: Headache or Minor Fever Stop: 09/01/19 18:42 Al Hydrox/Mg Hydrox/Simethicone (Maalox) 30 ml PO Q4H PRN PRN Reason: GI Upset Stop: 09/01/19 18:42 Bismuth Subsalicylate (Kaopectate) 15 ml PO PRN PRN PRN Reason: Loose Stool Stop: 09/01/19 18:42 Chlorpromazine HCl (Thorazine) 100 mg PO HS PRN PRN Reason: insomnia Stop: 09/03/19 21:59 Fish Oil ([place]-3 (Purified Fish Oil)) 1 gm PO HS JOHN Stop: 09/01/19 20:59 Last Admin: 08/04/19 22:18 Dose: 1 gm Documented by: Haloperidol (Haldol) 5 mg PO Q4 PRN PRN Reason: psychosis Stop: 09/03/19 15:16 Hydroxyzine HCl (Vistaril) 50 mg PO HSZ PRN PRN Reason: Insomnia Stop: 09/01/19 18:42 Last Admin: 08/03/19 22:34 Dose: 50 mg Documented by: Hydroxyzine HCl (Vistaril) 25 mg PO Q4H PRN PRN Reason: Anxiety Stop: 09/01/19 18:42 Lamotrigine (Lamictal) 200 mg PO BID [facility] Stop: 09/02/19 08:59 Last Admin: 08/05/19 08:37 Dose: 200 mg Documented by: [place] Carbonate ([place] Carbonate) 600 mg PO BID JOHN Stop: 09/02/19 08:59 Last Admin: 08/05/19 08:37 Dose: 600 mg Documented by: Magnesium Hydroxide (Milk Of Magnesia) 30 ml PO DAILY PRN PRN Reason: Constipation Stop: 09/01/19 18:42 Metformin HCl (Glucophage) 1,000 mg PO BIDM [facility] Stop: 09/02/19 08:59 Last Admin: 08/05/19 08:36 Dose: 1,000 mg Documented by: Miscellaneous (Remove Nicoderm Patch) 1 ea N/A DAILY@0859 [facility] Stop: 09/03/19 08:58 Last Admin: 08/05/19 08:36 Dose: 1 ea Documented by: Multivitamins (Multivitamin Tab) 1 tab PO QAM [facility] Stop: 09/02/19 08:59 Last Admin: 08/05/19 08:37 Dose: 1 tab Documented by: Nicotine (Nicoderm Cq) 14 mg TD QAM PRN PRN Reason: craving Stop: 09/02/19 11:29 Last Admin: 08/04/19 13:33 Dose: 14 mg Documented by: Nicotine Polacrilex (Nicorette 2mg) 1 piece MT PRN PRN; Protocol PRN Reason: cravings Stop: 09/02/19 11:19 Paliperidone (Invega) 3 mg PO DAILY [facility] Stop: 09/04/19 08:59 Last Admin: 08/05/19 08:37 Dose: 3 mg Documented by: Propranolol HCl (Inderal) 20 mg PO BID [facility] Stop: 09/02/19 08:59 Last Admin: 08/05/19 08:37 Dose: 20 mg Documented by: Sodium Chloride ([place] Nasal) 1 - 2 sprays NA PRN PRN PRN Reason: Nasal Dryness/Congestion Stop: 09/01/19 18:42 Vitamin D (Vitamin D3) 800 units PO QAM [facility] Stop: 09/02/19 10:44 Last Admin: 08/05/19 08:37 Dose: 800 units Documented by: Mental Health & Subst Abuse Tx Therapist Name of Therapist: Alka Kapoor Desk Sergeant Name of Desk Sergeant: none Post Discharge Appointments Primary Care Physician Name Of Family Doctor: Dr. Nixon Mcdonough (1) Schizoaffective disorder Schizoaffective disorder type: bipolar Qualified Code(s): F25.0 - Schizoaffective disorder, bipolar type
[2019-08-05] MEDS: VALACYCLOVIR HCL 500 MG TABLET PO SCH (12:57)
[2019-08-05] MEDS: OMEGA-3 (PURIFIED FISH OIL) 1 GM CAP PO SCH (21:55)
[2019-08-06] MEDS: METFORMIN HCL 500 MG TAB PO SCH ×2 (08:04→18:00)
[2019-08-06] MEDS: PROPRANOLOL HCL 20 MG TAB PO SCH ×2 (08:05→21:41)
[2019-08-06] MEDS: lamoTRIgine 100 MG TAB PO SCH ×2 (08:05→21:41)
[2019-08-06] MEDS: PALIPERIDONE 3 MG TABCR PO SCH (08:05)
[2019-08-06] MEDS: VALACYCLOVIR HCL 500 MG TABLET PO SCH (08:06)
[2019-08-06] MEDS: CHOLECALCIFEROL (VITAMIN D) 400 UNITS TABLET PO SCH (08:06)
[2019-08-06] MEDS: LITHIUM CARBONATE 300 MG TAB PO SCH ×2 (08:06→21:42)
[2019-08-06] MEDS: MULTIVITAMIN TAB PO SCH (08:06)
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
[2019-08-06] MEDS: OMEGA-3 (PURIFIED FISH OIL) 1 GM CAP PO SCH (21:42)
--- NOTE | 2019-08-07 08:19 | Psychiatric Progress Note ---
Date of Service August 07, 2019 Impression / Recommendations Impression 43-year-old single male with a history of schizoaffective disorder bipolar type, remote history of substance abuse in remission, and multiple medical problems who presented with worsening mood and psychotic symptoms and suicidal ideation in the context of medication changes. He has been resumed on paliperidone with a plan to transition to Sustenna, and continued his home doses of lithium and lamotrigine. Sleep, mood, and psychotic symptoms are improving. He had a family meeting with his mother, and care is being coordinated with his outpatient clinician, while increasing outpatient services (referring him for case management). Inpatient treatment is medically necessary due to the severity of his symptoms and risk for self-harm if discharged. (1) Thoughts of self harm: 08/03 -continue voluntary hospitalization. Every 15 minute checks for safety. -Encourage group attendance and participation. Work on healthy coping skills and discharge safety plan. 08/05 - Denies SI or thoughts of self-harm today (2) Schizoaffective disorder: 08/03 - Continue home dose of risperidone 1mg qam and 2mg HS, lithium 600mg bid, and lamotrigine 200mg bid. -Got Abipatito Wilsonna 07/23/19, but psychotic symptoms worsening, so switching back to Invega Sustenna with plan to get loading injections at the end of Jul. If he is agreeable, we consider reloading him on Sustenna earlier. -Fasting lipid profile and Hgb A1C ordered for tomorrow am. -Will coordinate care with Martina Brown on Monday when office reopens give multiple med changes and conflicting reports - particularly regarding risperidone, as patient thinks his mother told him to stop it, but just filled Rx last week. Sleep was poor last night which could be due to missing HS dose. Unclear if he was taking prescribed dose recently, gives conflicting reports. 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 08/04 - Greenway trough 0.9. FLP notable for TG 183, HDL is 28. Hgb A1C pending. Reviewed lab results with patient. - Discussed medication options, patient agreed to try oral paliperidone in place of risperidone, and if tolerated, will resume Sustenna. - Sleep worsening, patient does not want to try different sleep medications as fears his throat will close and he'll stop breathing. Can continue to offer chlorpromazine 100mg HS prn. 08/05 - Pt is far less somatically preoccupied today; stating he slept well last evening - denies continued throat concerns - Pt tolerating initiation of oral paliperidone - received 3mg dose this morning; will titrate to 6mg for tomorrow morning's dose - Pt remains agreeable with eventual conversion to Invega Sustenna if he tolerate oral medication - Pt willing for family meeting with mother prior to discharge - will need to schedule meeting - Continue attempts to gather collateral information from outpatient psychiatric prescriber 08/06 -Paliperidone increased to 6 mg today. -Family meeting with mother today. -Recommend referral for case management. -Patient advised that he will not be medically cleared to drive at the time of discharge, and should wait until he has fully stabilized and been cleared by his outpatient physician. 08/07 -Continue current medications, as he is tolerating the paliperidone well. Care coordinated with Martina Brown at [facility], who has scheduled his Invega Sustenna for the end of the month, as the Elvira Mendez should be out of his system by that time. -Referring to the [facility]SU for a BCM. Patient reports long-term goal to get independent housing, and has also expressed interest in peers support. He may also benefit from a return to [employer]. -Spoke with mother at her request and answered multiple questions. (3) Smokes 1 pack of cigarettes per day: 08/03 -patient declined smoking cessation education and nicotine replacement on admission. -Discussed his desire to quit smoking today, and ordered nicotine patch 14mg and gum prn cravings, which he is unsure if he wants. -Will arrange OP f/u at [facility] 08/07 - Patient remains committed to smoking cessation Reviewed coping skills, things he can do in place of smoking, option of nicotine replacement, chewing gum, physical activity. He made a list of reasons why he should quit smoking, and coping skills he can use. Has also enlisted his family (as mother buys cigarettes for him) to ask them to support him. (4) Vitamin D deficiency: 08/03 -vitamin D level checked yesterday and was low at 27.5. Start supplementation with vitamin D3 800 mg p.o. daily. Follow-up with PCP. (5) Severe obstructive sleep apnea: 08/03 - continue CPAP, MNPR, one-to-one overnight for safety due to SI, cord access. 08/04 - Respiratory has already come and checked his CPAP, will do pulse ox overnight 08/05 - Pt reporting significantly improved sleep last evening - Pulse ox obtained on two occasions overnight - 97% both times; no reported evidence of airway disturbance by gasping or choking - Maintain MNPR for continued use of CPAP 08/07 -sleep improving. Reviewed sleep hygiene, including benefits of exercise, and encouraged him to start slowly increasing his physical activity. (6) Hypertension: 08/03 -blood pressure stable; continue home dose of propanolol. (7) Genital herpes simplex type 2: 08/03 -continue home dose of valacyclovir. (8) Elevated hemoglobin A1c: 08/03 -continue Metformin, check hemoglobin A1c tomorrow for monitoring on an atypical antipsychotic. 08/04 -Hgb A1C pending. (9) Obesity: 08/03 -BMI 36.4; encourage healthy diet and exercise. Continue metformin which may protect from antipsychotic-induced weight gain. 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 Chief Complaint "Ok I think, I was surprised at my length of stay". Review of Systems Notes Denies EPS, GI symptoms, sedation Sleep Information Total Hours of Sleep: 6 Sleep Comments: pt on q-15 minute checks. pt on 1:1 staff coverage. Meal Information Percent Meal Consumed - Breakfast: 100 Percent Meal Consumed - Lunch: 100 Percent Meal Consumed - Dinner: 100 Subjective Subjective Patient was seen & assessed and interval progress reviewed with treatment team. Staff report he has been attending and participating in groups and therapy, spending his free time socializing with peers, and had a visit from a friend from gnosticism. He has been in good behavioral control, taking medications without difficulty, and performing ADLs independently. His mood has been brighter, and he has been less religiously preoccupied. Care was coordinated with his outpatient clinic, [facility], and staff confirmed that he received Abilify Maintena on 07/23/2019, and then called their office 1 week later and requested to stop the Maintena and return to Invega Sustenna. He had last been on Sustenna in 12/2018. He then showed up at their office on 08/02/2019 without an appointment, was psychotic, and they recommended he go to the ER. The initial loading injection of Sustenna is scheduled for 08/20/2019. He had a meeting with the criminal justice social worker and his mother yesterday, talked about his desire to stop smoking, and requested that his mother does not buy cigarettes for him anymore. She expressed concerns that he would have trouble managing his emotions, as smoking typically helps him to calm down. He talked about the churches he attends and his concerns about what other people there think about him. They discussed his medication changes, and the plan to transition to Invega Sustenna, but some confusion about when he would get the loading injections. 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 Options for increasing his outpatient supports were reviewed including BCM and CRR referral. Both he and his mother believe he is on the CRR wait list, and agreed that 1 of his long-term goals is independent living, as he has lived with his mother for the past 16 years. His mother confirmed that there are no guns at home. On my assessment, he states he was surprised that the possibility of discharge tomorrow was discussed, although agrees he is doing better and feeling closer to being ready for discharge. He denies side effects to oral paliperidone and states willingness to continue it until he gets the Sustenna injection later this month. He continues to think about his senior care goals to live independently and would like to get a case management coordinator, and expresses frustration that he tried to get a case management coordinator a month or two ago and says the BSU told him he "didn't need one." He is less religiously preoccupied but still worries that "gnosticism may not go the way I want it to," or that he won't be able to quit smoking. Notes he struggles with black and white thinking, "either I'm perfect or I'm not, I'm terrible." Specifically he is worrying that he won't be able to quit smoking. Reviewed his smoking cessation plan in detail, including use of nicotine replacement, chewing gum or hard candy, and asking his mother to hold him accountable. He's able to identify his triggers - being bored, driving, and stress. Discussed working on identifying coping skills to use in place of smoking. Reviewed his daily schedule/structure, and options for increased supports ([facility], [facility]). Spoke with his mother at her request and answered multiple questions about medications. She agrees he is improving, is less hyperreligious, sleep is better, was reassured to hear medication plan. Discussed specific recommendations including no driving until period of stability and seen by outpatient clinician, increased OP services ([facility]), and medication changes here. Physical Exam Psychiatric Orientation: alert, oriented x 3 and cooperative Apperance: appropriately dressed, appropriately groomed and appeared stated age Eye Contact: good eye contact Motor Behavior: steady gait and station and no abnormal motor movements Speech: normal rate/rhythm/volume of speech Affect: + anxious affect and mood congruent with affect Okay" Thought Process: goal directed thought process Thought Content: + cognitive distortions Suicidal Thoughts: denies suicidal thoughts Homicidal Thoughts: denies homicidal thoughts Hallucinations: no auditory hallucinations and no visual hallucinations Cognition: recent memory grossly intact, attention grossly intact and language grossly intact Insight: + fair insight Judgement: + fair judgement Vital Signs (Past 24 Hours) Last Vital Signs Temp 36.6 C 08/07/19 06:57 Pulse 84 08/07/19 06:58 Resp 18 08/07/19 06:57 BP 138/84 08/07/19 06:58 Pulse Ox 97 08/05/19 06:56 Results & Data Current Inpatient Medications Current Inpatient Medications: Current Inpatient Medications Acetaminophen (Tylenol) 650 mg PO Q4H PRN PRN Reason: Headache or Minor Fever Stop: 09/01/19 18:42 Al Hydrox/Mg Hydrox/Simethicone (Maalox) 30 ml PO Q4H PRN PRN Reason: GI Upset Stop: 09/01/19 18:42 Bismuth Subsalicylate (Kaopectate) 15 ml PO PRN PRN PRN Reason: Loose Stool Stop: 09/01/19 18:42 Chlorpromazine HCl (Thorazine) 100 mg PO HS PRN PRN Reason: insomnia Stop: 09/03/19 21:59 Fish Oil ([place]-3 (Purified Fish Oil)) 1 gm PO HS JOHN Stop: 09/01/19 20:59 Last Admin: 08/06/19 21:42 Dose: 1 gm Documented by: Haloperidol (Haldol) 5 mg PO Q4 PRN PRN Reason: psychosis Stop: 09/03/19 15:16 Hydroxyzine HCl (Vistaril) 50 mg PO HSZ PRN PRN Reason: Insomnia Stop: 09/01/19 18:42 Last Admin: 08/06/19 01:34 Dose: 50 mg Documented by: Hydroxyzine HCl (Vistaril) 25 mg PO Q4H PRN PRN Reason: Anxiety Stop: 09/01/19 18:42 Lamotrigine (Lamictal) 200 mg PO BID [facility] Stop: 09/02/19 08:59 Last Admin: 08/06/19 21:41 Dose: 200 mg Documented by: Greenway Carbonate (Greenway Carbonate) 600 mg PO BID [facility] Stop: 09/02/19 08:59 Last Admin: 08/06/19 21:42 Dose: 600 mg Documented by: Magnesium Hydroxide (Milk Of Magnesia) 30 ml PO DAILY PRN PRN Reason: Constipation Stop: 09/01/19 18:42 Metformin HCl (Glucophage) 1,000 mg PO BIDM [facility] Stop: 09/02/19 08:59 Last Admin: 08/06/19 18:00 Dose: 1,000 mg Documented by: Miscellaneous (Remove Nicoderm Patch) 1 ea N/A DAILY@[id number] [facility] Stop: 09/03/19 08:58 Last Admin: 08/06/19 10:48 Dose: Not Given Documented by: Multivitamins (Multivitamin Tab) 1 tab PO QAM [facility] Stop: 09/02/19 08:59 Last Admin: 08/06/19 08:06 Dose: 1 tab Documented by: Nicotine (Nicoderm Cq) 14 mg TD QAM PRN PRN Reason: craving Stop: 09/02/19 11:29 Last Admin: 08/04/19 13:33 Dose: 14 mg Documented by: Nicotine Polacrilex (Nicorette 2mg) 1 piece MT PRN PRN; Protocol PRN Reason: cravings Stop: 09/02/19 11:19 Paliperidone (Invega) 6 mg PO DAILY [facility] Stop: 09/05/19 08:59 Last Admin: 08/06/19 08:05 Dose: 6 mg Documented by: Propranolol HCl (Inderal) 20 mg PO BID [facility] Stop: 09/02/19 08:59 Last Admin: 08/06/19 21:41 Dose: 20 mg Documented by: Sodium Chloride ([place]son Nasal) 1 - 2 sprays NA PRN PRN PRN Reason: Nasal Dryness/Congestion Stop: 09/01/19 18:42 Valacyclovir HCl (Valtrex) 500 mg PO QAM [facility] Stop: 08/15/19 11:59 Last Admin: 08/06/19 08:06 Dose: 500 mg Documented by: Vitamin D (Vitamin D3) 800 units PO QAM [facility] Stop: 09/02/19 10:44 Last Admin: 08/06/19 08:06 Dose: 800 units Documented by: Mental Health & Subst Abuse Tx Psychiatrist Name of Psychiatrist: Emelia Lopez [facility] Psychiatrist's Date of Appointment with Psychiatrist: 08/20/19 Time of Appointment with Psychiatrist: 10:30 [facility] [id number] [facility] Name of Therapist: Alka Kapoor Therapist's Date of Therapist Appointment: 08/12/19 Time of Therapist Appointment: 9am Therapy [facility]ment [facility] [address] Hogshead Dumper Name of Hogshead Dumper: none Post Discharge Appointments Primary Care Physician Name Of Family Doctor: Dr. Nixon Mcdonough Primary Care Provider Appointment Comment: As needed [address] Contact Information Discharge Discharge Address: [address] [place], [place] [address] [id number] (1) Schizoaffective disorder Schizoaffective disorder type: bipolar Qualified Code(s): F25.0 - Schizoaffe ctive disorder, bipolar type
[2019-08-07] MEDS: PROPRANOLOL HCL 20 MG TAB PO SCH ×2 (08:44→21:03)
[2019-08-07] MEDS: METFORMIN HCL 500 MG TAB PO SCH ×2 (08:44→17:25)
[2019-08-07] MEDS: CHOLECALCIFEROL (VITAMIN D) 400 UNITS TABLET PO SCH (08:45)
[2019-08-07] MEDS: PALIPERIDONE 3 MG TABCR PO SCH (08:45)
[2019-08-07] MEDS: LITHIUM CARBONATE 300 MG TAB PO SCH ×2 (08:46→21:04)
[2019-08-07] MEDS: VALACYCLOVIR HCL 500 MG TABLET PO SCH (08:46)
[2019-08-07] MEDS: MULTIVITAMIN TAB PO SCH (08:46)
[2019-08-07] MEDS: lamoTRIgine 100 MG TAB PO SCH ×2 (08:46→21:04)
[2019-08-07] MEDS: OMEGA-3 (PURIFIED FISH OIL) 1 GM CAP PO SCH (21:04)
[2019-08-08] MEDS: VALACYCLOVIR HCL 500 MG TABLET PO SCH (08:24)
[2019-08-08] MEDS: PROPRANOLOL HCL 20 MG TAB PO SCH (08:24)
[2019-08-08] MEDS: CHOLECALCIFEROL (VITAMIN D) 400 UNITS TABLET PO SCH (08:24)
[2019-08-08] MEDS: METFORMIN HCL 500 MG TAB PO SCH (08:24)
[2019-08-08] MEDS: MULTIVITAMIN TAB PO SCH (08:24)
[2019-08-08] MEDS: lamoTRIgine 100 MG TAB PO SCH (08:25)
[2019-08-08] MEDS: PALIPERIDONE 3 MG TABCR PO SCH (08:25)
[2019-08-08] MEDS: LITHIUM CARBONATE 300 MG TAB PO SCH (08:25)
--- NOTE | 2019-08-08 09:52 | Discharge Summary ---
Date of Service August 08, 2019 History of Present Illness The patient is known to us from previous hospitalizations, last on our unit in 2017 for 15 days for a manic episode. He was on Invega Trinza at the time, but had stopped all of his oral medications. While here, he was started on oral Invega and Depakote. He was discharged to outpatient follow-up with Martina Brown at [facility], therapist Fernando Hale, and [facility] Santino Holland. He presented to the ER yesterday, 08/02/2019, with his mother, reporting worsening depression over the past several days, with suicidal thoughts. He was religiously focused, stating he wanted to be a witness in revelation, but was worried that he would never be who he wanted to be in [place]. He reported feeling inadequate, hopeless, and wanting to give up. Made statements that it would be his "duty to hurt other people in his time." He endorsed poor sleep, and increasing paranoia. His mother stated that he had been switched from Invega Sustenna to Abilify Maintena a few months ago, but it did not go well, and he is now switching back to Sustenna. He denied any recent drug or alcohol use. Admission labs were notable for RBC 4.43, glucose 110, and TSH 1.380. Salicylate level 3.8, acetaminophen level negative. Lamotrigine level pending, and lithium level (non-trough, at 16:12 yesterday) was 0.9. He agreed to voluntary hospitalization, and was cooperative with the admission process. He had very poor sleep last night, despite receiving hydroxyzine, only sleeping 2.5 hours. On my assessment, he struggles to describe why he decided to come to the hospital, talking about smoking and the churches he attends, concerns that people don't think he is a good witness, and not wanting to be around his mother. He expresses some frustration that he wants to quit smoking but that his mother keeps buying cigarettes for him. He reports frustration with his life, sh anitha, and low self esteem. SI has been worsening for the past 2 months, and he feels more hopeless. Sleep has been poor for the past 4 nights, 3 hrs or less, and prior to that was 6 hours, which is not enough per him. Appetite is good, he has been trying to lose weight, and lost around 20lbs over the last 3 months with dietary changes. He denies recent manic symptoms. He has a structured schedule with confucianist twice on Mon. at 2 different churches, [facility] and individual therapy on , Bible study . and Mon., and was attending [employer] but thinks he might stop. 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 He reports paranoia that people think poorly of him, gives example of man from [employer] whom he was asking about Pasha's lineage as detailed in the Bible, and why there were discrepancies, and this man told him he didn't know the answer, which Jey found hard to believe as "he has extensive knowledge of the Bible." He told this man he wanted to be a witness in the Revelation, and believes that is it reasonable that God could return during his lifetime "given the way the world is," and he told the patient that to be a credible witness, he needs to spread the word of God, and needed to stop smoking. This was very stressful and upsetting to Jey, "I wanted to quit right there and then," but he then "went out and had a cigarette, and this papo from my confucianist came down," and he wondered why this person was driving past, "that's unusual. I thought I was being spied on." He reports thinking has been more scattered since switching from Invega Sustenna to Abilify Maintena in Apr., due to weight gain and sexual side effects, and plan to switch back to Invega. He initially states he's been struggling with doing his ADLs, but then contradicts himself and says it hasn't been hard. He denies AVH but reports "a weird sensati on in my head, like it's hard to pay attention, worse when I'm using my brain." Physical Exam Psychiatric Orientation: alert, oriented x 3 and cooperative (and pleasant) Apperance: appropriately dressed (casually, wearing jeans and a sweater), appropriately groomed and appeared stated age Eye Contact: good eye contact Motor Behavior: steady gait and station and no abnormal motor movements Speech: normal rate/rhythm/volume of speech Affect: euthymic affect and mood congruent with affect Mood: no depressed mood ("Pretty good, actually") Thought Process: goal directed thought process, clear/coherent thought process and thought association intact Thought Content: reality based without delusions; not paranoid, no hopelessness and no worthlessness Suicidal Thoughts: denies suicidal thoughts, denies suicidal plan and denies suicidal intent Homicidal Thoughts: denies homicidal thoughts Hallucinations: no auditory hallucinations and no visual hallucinations Cognition: recent memory grossly intact, attention grossly intact and language grossly intact Insight: + fair insight Judgement: + fair judgement Vital Signs (Past 24 Hours) Last Vital Signs Temp 36.4 C L 08/08/19 06:40 Pulse 81 08/08/19 06:41 Resp 16 08/08/19 06:40 BP 117/82 08/08/19 06:41 Pulse Ox 97 08/05/19 06:56 Principal Diagnosis - Schizoaffective disorder, bipolar type Psychiatric Data 43-year-old single male with a history of schizoaffective disorder bipolar type, remote history of substance abuse in remission, and multiple medical problems who presented with worsening mood and psychotic symptoms and suicidal ideation in the context of medication changes. Patient presented for admission on a combination of a Abilify Maintena monthly injections. It is reported that he has been undergoing recent medication adjustments, and mood and psychotic symptoms have recently been exacerbated. On an outpatient basis, patient had been prescribed oral risperidone in combination with Abilify Maintena, and this medication regimen was resumed. Patient received 3 mg daily in divided doses; however, his psychotic symptoms began to worsen during this hospitalization. Oral risperidone was discontinued, and patient was resumed on oral paliperidone. Conversation with his outpatient psychiatric prescriber included possibility of returning to [facility]; however, patient had received his Abilify Maintena injection on 07/23/2019. He was titrated to a dose of 6 mg of paliperidone each morning, and did not verbalize any side effects or adverse reactions. Care was coordinated with his outpatient psychiatric office in order to schedule dates for Invega Sustenna injection. Over the course of the patient's admission, he demonstrated improvement in psychotic symptoms and resolution of suicidal ideation. Patient was maintained on his home doses of lithium 600 mg twice daily and lamotrigine 200 mg twice daily. He participated appropriately in group and recreational programming. He did involve his mother and a family meeting to discuss aftercare and safety planning. He also completed a referral for a business case analyst for additional outpatient psychiatric support. Outpatient psychiatric appointments were scheduled to allow for timely follow-up after hospital discharge. Discharge plan included appointment to receive initial dose of Invega Sustenna on 08/13/2019, with second injection to be given during his outpatient psychiatric follow-up on 08/20/2019. Patient was given a prescription for oral paliperidone in the interim, until the injection is received. Based on review of patient's case and their current presentation, risk of harm to self or others is no longer perceived to be acute. Management of symptoms on an outpatient basis seems the most appropriate and least restrictive setting. Pt seems appropriate for discharge with recommendation for consistent follow-up with outpatient psychiatric prescriber, therapist and business case analyst. Pt verbaliz ed understanding of discharge plan reviewed and is agreeable with plan to be discharged home today. Day of Discharge Assessment Patient's case was reviewed and discussed with nursing and social work. Staff report the patient has been attending group programming regularly. He rated his mood a 6/10 last evening, and was feeling "loved" after a visit with some confucianist friends. Pt was seen today to assess readiness for discharge. Patient states that he is feeling "pretty good, actually." He states that he is hopeful to return home today, and mother is available to pick him up. When asked what patient found beneficial about his hospitalization, he says "I realized that I need to keep the positive things in life going, and be honest when I am not doing well or when I have concerns about medications." Patient states that he had several visitors last evening, and is pleased with the amount of support he has received. Patient verbalizes understanding that his discharge plan includes receiving the initial injection of Invega Sustenna on 08/13/2019, with the second injection to be given during his psychiatric follow-up visit on 08/20/2019. Patient verbalized understanding of recommendations that he continue the oral Invega until he is given the injection. 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 Patient verbalized understanding of this recommendation and did not object. Patient was able to verbalize various aspects of his safety plan, and participated in conversation regarding its use in his ongoing treatment. Patient denied suicidal ideation and was future oriented for the duration of our conversation. He verbalizes ability to contract for safety outside of the hospital setting, and is happy to have the ongoing support of his mother and several confucianist friends. Discharge plan was reviewed with the patient who verbalized understanding and is agreeable with returning home today. Patient states that transportation will be provided by his mother. He denies other needs or concerns, and believes that all of his treatment goals have been achieved during this admission. Patient verbalizes desire to remain compliant with outpatient psychiatric follow-up, including engaging with case management services. Patient verbalizes readiness for discharge home. ROS: Constitutional: denied Cardiovascular: denied Respiratory: denied Gastrointestinal: denied Neurological: denied Psychiatric: denies symptoms other than stated above Total of at least 10 systems reviewed, pertinent positives as above and in HPI. Transition of Care Transition Of Care Record: was reviewed with the patient Advance Directives Advance Directives Information Provided: Yes Advance Directives: No Mental Health Advance Directive: No Advance Directives on File: No Living Will: No Power of Permaculture Designer: No Advance Directives Reason:: Declines as Mental Health Visit. Risk Factors Assessment Presenting risk factors reviewed on discharge. Precipitating stressors mitigated by: admission for inpatient psychiatric observation and treatment, appropriate adjustments to medications to target symptoms, attendance of therapeutic treatment groups, development of healthy and effective coping strategies, involvement of outpatient supports, completion of a safety plan, confirmation of extra medications being secured, confirmation of guns and weapons being secured, treatment of medical conditions and education on diagnoses. Pt has demonstrated improvement in condition with regard to resolution of delusional thinking, improvement in mood, resolution of self-harm thoughts, and involvement of outpatient supports in discharge and safety planning. At this time, patient is requesting discharge and is no longer considered to be at acute risk of harm to himself or others. Pt will be discharged with recommendation for ongoing outpatient psychiatric treatment. 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) Stable Relationships: No Supportive Family: Yes Good Rapport with Provider: Yes Tobacco Cessation at Discharge Tobacco Cessation Medication Prescribed at Discharge: Offered & Prescribed (Pt has been in communication with the [facility]uit[facility]) Total Time Total Time Spent: Greater Than 30 Minutes Total Time Includes: Examination of the patient, Discharge Planning, Medication Reconciliation and Communication with other providers Discharge Data Lab Results 08/02/19 08/02/19 08/02/19 15:12 15:12 16:12 WBC 8.69 RBC 4.43 L Hgb 15.3 Hct 43.0 MCV 97.1 MCH 34.5 H MCHC 35.6 RDW Std Deviation 44.3 RDW Coeff of Yris 12.5 Plt Count 196 MPV 9.7 Immature Gran % (Auto) 0.1 Neut % (Auto) 61.3 Lymph % (Auto) 29.2 Sandoval % (Auto) 6.7 Eos % (Auto) 2.5 Baso % (Auto) 0.2 Immature Gran # (Auto) 0.01 Neut # (Auto) 5.32 Lymph # (Auto) 2.54 Sandoval # (Auto) 0.58 Eos # (Auto) 0.22 Baso # (Auto) 0.02 Sodium Potassium Chloride Carbon Dioxide Anion Gap BUN Creatinine Est Cr Clr Drug Dosing Est GFR ( Amer) Est GFR (Non-Af Amer) BUN/Creatinine Ratio Glucose Estimat Average Glucose Hemoglobin A1c Calcium Total Bilirubin AST ALT Alkaline Phosphatase Total Protein Albumin Globulin Albumin/Globulin Ratio Triglycerides Cholesterol LDL Cholesterol, Calc VLDL Cholesterol, Calc HDL Cholesterol Cholesterol/HDL Ratio TSH Urine Color Yellow Urine Appearance Clear Urine pH 6.5 Ur Specific Elba 1.009 Urine Protein Negative Urine Glucose (UA) Negative Urine Ketones Negative Urine Blood Negative Urine Nitrite Negative Urine Bilirubin Negative Urine Urobilinogen Negative Ur Leukocyte Esterase Negative Salicylates Urine Opiates Screen Neg Ur Methadone, Qual Neg Acetaminophen Urine Barbiturates Neg Ur Phencyclidine (PCP) Neg U Amphetamin/Meth Scrn Neg MDMA (Ecstasy) Screen Neg U Benzodiazepines Scrn Neg [place] Ur Cocaine Metabolite Neg U Marijuana (THC) Screen Neg Ethyl Alcohol mg/dL 08/02/19 08/02/19 08/02/19 16:12 16:12 16:12 WBC RBC Hgb Hct MCV MCH MCHC RDW Std Deviation RDW Coeff of Yris Plt Count MPV Immature Gran % (Auto) Neut % (Auto) Lymph % (Auto) Sandoval % (Auto) Eos % (Auto) Baso % (Auto) Immature Gran # (Auto) Neut # (Auto) Lymph # (Auto) Sandoval # (Auto) Eos # (Auto) Baso # (Auto) Sodium 139 Potassium 4.6 Chloride 108 H Carbon Dioxide 29 Anion Gap 2.0 L BUN 15 Creatinine 1.08 Est Cr Clr Drug Dosing 119.7 Est GFR ( Amer) 98.3 Est GFR (Non-Af Amer) 84.8 BUN/Creatinine Ratio 13.7 Glucose 110 H Estimat Average Glucose Hemoglobin A1c Calcium 9.3 Total Bilirubin 0.4 AST 23 ALT 50 Alkaline Phosphatase 63 Total Protein 7.7 Albumin 4.0 Globulin 3.7 Albumin/Globulin Ratio 1.1 Triglycerides Cholesterol LDL Cholesterol, Calc VLDL Cholesterol, Calc HDL Cholesterol Cholesterol/HDL Ratio TSH 1.380 Urine Color Urine Appearance Urine pH Ur Specific Elba Urine Protein Urine Glucose (UA) Urine Ketones Urine Blood Urine Nitrite Urine Bilirubin Urine Urobilinogen Ur Leukocyte Esterase Salicylates 3.8 Urine Opiates Screen Ur Methadone, Qual Acetaminophen < 2 L Urine Barbiturates Ur Phencyclidine (PCP) U Amphetamin/Meth Scrn MDMA (Ecstasy) Screen U Benzodiazepines Scrn Melbourne 0.9 Ur Cocaine Metabolite U Marijuana (THC) Screen Ethyl Alcohol mg/dL < 3.0 08/04/19 08/04/19 08/04/19 07:50 07:50 07:50 WBC RBC Hgb Hct MCV MCH MCHC RDW Std Deviation RDW Coeff of Yris Plt Count MPV Immature Gran % (Auto) Neut % (Auto) Lymph % (Auto) Sandoval % (Auto) Eos % (Auto) Baso % (Auto) Immature Gran # (Auto) Neut # (Auto) Lymph # (Auto) Sandoval # (Auto) Eos # (Auto) Baso # (Auto) Sodium Potassium Chloride Carbon Dioxide Anion Gap BUN Creatinine Est Cr Clr Drug Dosing Est GFR ( Amer) Est GFR (Non-Af Amer) BUN/Creatinine Ratio Glucose Estimat Average Glucose 88 Hemoglobin A1c 4.7 Calcium Total Bilirubin AST ALT Alkaline Phosphatase Total Protein Albumin Globulin Albumin/Globulin Ratio Triglycerides 183 H Cholesterol 144 LDL Cholesterol, Calc 79 VLDL Cholesterol, Calc 37 HDL Cholesterol 28 Cholesterol/HDL Ratio 5 TSH Urine Color Urine Appearance Urine pH Ur Specific Elba Urine Protein Urine Glucose (UA) Urine Ketones Urine Blood Urine Nitrite Urine Bilirubin Urine Urobilinogen Ur Leukocyte Esterase Salicylates Urine Opiates Screen Ur Methadone, Qual Acetaminophen Urine Barbiturates Ur Phencyclidine (PCP) U Amphetamin/Meth Scrn MDMA (Ecstasy) Screen U Benzodiazepines Scrn Melbourne 0.9 Ur Cocaine Metabolite U Marijuana (THC) Screen Ethyl Alcohol mg/dL Hospital Course (1) Thoughts of self harm: 08/03 -continue voluntary hospitalization. Every 15 minute checks for safety. -Encourage group attendance and participation. Work on healthy coping skills and discharge safety plan. 08/05 - Denies SI or thoughts of self-harm today (2) Schizoaffective disorder: 08/03 - Continue home dose of risperidone 1mg qam and 2mg HS, lithium 600mg bid, and lamotrigine 200mg bid. -Got Abilifirene Maintenna 07/23/19, but psychotic symptoms worsening, so switching back to Invega Sustenna with plan to get loading injections at the end of Jul. If he is agreeable, we consider reloading him on Sustenna earlier. -Fasting lipid profile and Hgb A1C ordered for tomorrow am. -Will coordinate care with Martina Brown on Monday when office reopens give multiple med changes and conflicting reports - particularly regarding risperidone, as patient thinks his mother told him to stop it, but just filled Rx last week. Sleep was poor last night which could be due to missing HS dose. Unclear if he was taking prescribed dose recently, gives conflicting reports. 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 08/04 - Melbourne trough 0.9. FLP notable for TG 183, HDL is 28. Hgb A1C pending. Reviewed lab results with patient. - Discussed medication options, patient agreed to try oral paliperidone in place of risperidone, and if tolerated, will resume Sustenna. - Sleep worsening, patient does not want to try different sleep medications as fears his throat will close and he'll stop breathing. Can continue to offer chlorpromazine 100mg HS prn. 08/05 - Pt is far less somatically preoccupied today; stating he slept well last evening - denies continued throat concerns - Pt tolerating initiation of oral paliperidone - received 3mg dose this morning; will titrate to 6mg for tomorrow morning's dose - Pt remains agreeable with eventual conversion to Invega Sustenna if he tolerate oral medication - Pt willing for family meeting with mother prior to discharge - will need to schedule meeting - Continue attempts to gather collateral information from outpatient psychiatric prescriber 08/06 -Paliperidone increased to 6 mg today. -Family meeting with mother today. -Recommend referral for case management. -Patient advised that he will not be medically cleared to drive at the time of discharge, and should wait until he has fully stabilized and been cleared by his outpatient physician. 08/07 -Continue current medications, as he is tolerating the paliperidone well. Care coordinated with Martina Brown at [facility], who has scheduled his Invega Sustenna for the end of the month, as the Elvira Mednez should be out of his system by that time. -Referring to the [facility] for a BCM. Patient reports long-term goal to get independent housing, and has also expressed interest in peers support. He may also benefit from a return to [email or web address]. -Spoke with mother at her request and answered multiple questions. (3) Smokes 1 pack of cigarettes per day: 08/03 -patient declined smoking cessation education and nicotine rep lacement on admission. -Discussed his desire to quit smoking today, and ordered nicotine patch 14mg and gum prn cravings, which he is unsure if he wants. -Will arrange OP f/u at [facility] 08/07 - Patient remains committed to smoking cessation Reviewed coping skills, things he can do in place of smoking, option of nicotine replacement, chewing gum, physical activity. He made a list of reasons why he should quit smoking, and coping skills he can use. Has also enlisted his family (as mother buys cigarettes for him) to ask them to support him. (4) Vitamin D deficiency: 08/03 -vitamin D level checked yesterday and was low at 27.5. Start supplementation with vitamin D3 800 mg p.o. daily. Follow-up with PCP. (5) Severe obstructive sleep apnea: 08/03 - continue CPAP, MNPR, one-to-one overnight for safety due to SI, cord access. 08/04 - Respiratory has already come and checked his CPAP, will do pulse ox overnight 08/05 - Pt reporting significantly improved sleep last evening - Pulse ox obtained on two occasions overnight - 97% both times; no reported evidence of airway disturbance by gasping or choking - Maintain MNPR for continued use of CPAP 08/07 -sleep improving. Reviewed sleep hygiene, including benefits of exercise, and encouraged him to start slowly increasing his physical activity. (6) Hypertension: 08/03 -blood pressure stable; continue home dose of propanolol. (7) Genital herpes simplex type 2: 08/03 -continue home dose of valacyclovir. (8) Elevated hemoglobin A1c: 08/03 -continue Metformin, check hemoglobin A1c tomorrow for monitoring on an atypical antipsychotic. 08/04 -Hgb A1C pending. (9) Obesity: 08/03 -BMI 36.4; encourage healthy diet and exercise. Continue metformin which may protect from antipsychotic-induced weight gain. Mental Health & Subst Abuse Tx Psychiatrist Name of Psychiatrist: Emelia Lopez [facility] Psychiatrist's Date of Appointment with Psychiatrist: 08/20/19 Time of Appointment with Psychiatrist: 10:30 Psychiatric Appointment Comment: [address] [place] [id number] Therapist Name of Therapist: Alka Kapoor Therapist's Date of Therapist Appointment: 08/12/19 Time of Therapist Appointment: 9am Therapy Appointment Comment: [facility] [place] [address] Information Technology Security Manager Name of Information Technology Security Manager: Shelby [facility] Phone Number for Information Technology Security Manager: [phone] Date of Appointment with Information Technology Security Manager: 08/09/19 Time of Appointment with Information Technology Security Manager: 10am Post Discharge Appointments Primary Care Physician Name Of Family Doctor: Dr. Nixon Mcdonough Primary Care Provider Appointment Comment: As needed [address] Smoking Cessation Counseling Tobacco Cessation Medication Prescribed at Discharge: Offered & Prescribed (Pt has been in communication with the [facility]uit[facility]) Other #1: Name of Aftercare Appointment: [facility] - Invega Sustenna Initial Injection Date Phone Number of Aftercare Appointment: [phone] Date of Aftercare Appointment: 08/13/19 Time of Aftercare Appointment: 0945 Contact Information Discharge Discharge Address: [address] [place] [address], [place] [address] Discharge Plan Discharge Items Patient Disposition: Home - Self-Care Reason For Visit: BIPOLAR DISORDER Discharge Diagnosis: - Schizoaffective disorder Activity: Resume your previous activity Non-emergency contact: Primary Care Provider, Psychiatrist, Therapist and Resolution Expert Call non-emergency contact if: you have any medication questions and your symptoms worsen Follow-up/Referrals: Nixon Mcdonough, [Primary Care Provider] - Diet: Regular Addtl Attending Provider Instructions: Medication Recommendations: - Continue oral Invega 6mg daily until you receive your first injection of Invega Sustenna on 08/13/2019. It is then possible to stop your oral Invega, but your outpatient PA-C may recommend a few additional doses. Check with [place] about these recommendations. SPECIAL CARE INSTRUCTIONS: 1. Follow through with your scheduled aftercare appointments. If unable to keep an appointment, please call to reschedule. 2. Take your medication only as prescribed. Medication should not be changed or stopped without the approval of your doctor. In the event of worsening symptoms or concerns about side effects, contact your doctor immediately. 3. Utilize new healthy coping skills, anger management skills, and stress management skills learned during your hospitalization. Journal feelings and process them with a support person. Identify stressors or situations that may result in relapse, deterioration or inappropriate behaviors and develop a plan to deal with those issues. 4. If your coping skills are ineffective and you are in crisis, contact your outpatient providers for direction. If unable to reach your providers, please call the CAN HELP LINE AT or go to the closest Emergency Room. 5. Avoid alcohol and un-prescribed drugs. 6. You have been provided with the Mental Health Advance Directives Pamphlet for your review. AFTERCARE APPOINTMENTS: * Please call your insurance company prior to your scheduled appointment to confirm your aftercare providers are covered. Take your insurance information to your appointments. WHO TO CALL AND WHEN: Medical Emergencies: For questions or emergencies related to your hospital stay, please contact the Inpatient Behavioral Health Unit at [phone]. [facility] is on-call 13/02 for the Behavioral Health Unit for emergencies At any time you feel your situation is an emergency, you may also call 911 immediately. Your Discharge Instructions noted above were prepared by provider Scarlett Diaz PA-C. Pending Studies at Discharge: No Stand-Alone Forms: [facility], Smoking Cessation, Suicide Prevention Resources Medications and DC Order Prescriptions: New nicotine 14 mg/24 hr patch 24 hour 14 mg transdermal QAM PRN (Reason: nicotine cravings) Qty: 28 RF: 0 nicotine (polacrilex) [Nicorelief] 2 mg Gum 2 mg MT PRN PRN (Reason: nicotine cravings) Qty: 100 RF: 0 hydroxyzine HCl 50 mg tablet 50 mg PO HS PRN (Reason: insomnia) Qty: 30 RF: 0 paliperidone 6 mg tablet extended release 24hr 6 mg PO DAILY 7 Days Qty: 7 RF: 0 cholecalciferol (vitamin D3) 400 unit capsule 800 unit PO QAM 30 Days Qty: 60 RF: 0 Continued valacyclovir 500 mg tablet 500 mg PO QAM Qty: 30 RF: 5 metformin 500 mg tablet 1,000 mg PO BID RF: 0 multivitamin [Multiple Vitamins] Tablet 1 tab PO QAM RF: 0 propranolol 20 mg Tablet 20 mg PO BID RF: 0 omega 5-gex-fog-fish oil [Fish Oil] 1,000 mg (120 mg-180 mg) Capsule 1 cap PO HS RF: 0 melatonin 10 mg Tablet 10 mg PO HS RF: 0 lithium carbonate 300 mg tablet 600 mg PO BID RF: 0 lamotrigine 200 mg tablet 200 mg PO BID RF: 0 Changed Invega Sustenna 234 mg/1.5 mL Syringe 234 mg IM UD Qty: 0 RF: 0 Discontinued Abilify Maintena 400 mg suspension,extended rel syring 400 mg IM .COMPLEX RF: 0 risperidone 1 mg tablet 1 mg PO DAILY RF: 0 risperidone [Risperdal] 2 mg Tablet 2 mg PO HS RF: 0 Discharge Orders: Discharge Order (Routine); Ordered 08/08/19 Ordered By: Scarlett Diaz Admission Data Admit Date/Time: 08/02/19 18:44 Attending Provider: Beverly Clark Admit Provider: Beverly Clark Primary Care Provider: Nixon Mcdonough Other Interventions: Discharge Summary Assessment (RN) Last Done: 08/08/19 10:47 PSY Interdisciplinary Discharge Planning Last Done: 08/08/19 10:47 DC Date/Time DO NOT enter until pt leaves facility: 08/08/19 11:15 Coding Level of Care Code 03601 D/C day mgmt > 30 min Diagnoses Thoughts of self harm R45.89 Schizoaffective disorder F25.0 Schizoaffective disorder type: bipolar Smokes 1 pack of cigarettes per day F17.210 Vitamin D deficiency E55.9 Severe obstructive sleep apnea G47.33 Hypertension I10 Genital herpes simplex type 2 A60.00 Elevated hemoglobin A1c R73.09 Obesity E66.9
[2019-08-08] MEDS: NICOTINE 14 MG/24 HR PATCH TD PRN (10:43)
== END 2019-08-08 11:15 | disposition home or self-care (01) | DRG 885 ==
LOC: ED 14:57 → 3S 18:44